=== PATIENT | male | born 1945 | race Caucasian/White ===

== ENCOUNTER 2021-03-12 11:59 | Inpatient (IN) ==
--- NOTE | 2021-03-12 13:25 | Emergency Department Note ---
History of Present Illness General Chief complaint: Neuro Symptoms/Deficit Stated complaint: L SIDED FACIAL WEAKNESS,GARRETT,REF BY Time Seen by Provider: 03/12/21 12:59 Source: patient History of Present Illness Provider complaint: Left facial pain Onset (ago): day(s) 2 Location: face and left Radiation: other (Left scalp) Pain Consistency: + constant Quality: + other (Soreness) Exacerbated By: + other (Combing his hair on the left side) Associated symptoms: + cough; no chest pain, no fever/chills, no headaches, no nausea/vomiting or no shortness of breath This is a 75-year-old male sent in from a local urgent care clinic for evaluation of left facial pain. The patient states that starting 2 days ago he started having some redness and swelling and pain under his left eye. He felt like he was getting a sinus infection and had pain over the sinus which she describes as a soreness. He also developed a cough which is nonproductive. He states that the swelling has extended down his cheek and he has pain in his nose as well. Last night he noticed that he had a facial droop which she just thought was from the swelling. He was able to move his eyebrows. He then started combing his hair this morning and noticed that there was pain over his scalp. He try to get an appointment to see his doctor but they told him to go to the emergency department. He then went to a local urgent care center and was seen and advised to come to the emergency department. He denies any headache, v omiting, fever, chest pain, shortness of breath, abdominal pain, neck pain, diarrhea or urinary symptoms. He is [place] and has not received any immunizations in childhood or the Covid vaccine. He wears dentures and does not have any teeth. Home Medications Medication Instructions Recorded Confirmed Type hydrochlorothiazide 25 mg tablet 25 mg PO DAILY #90 tab 10/28/20 03/12/21 Rx lisinopril 10 mg tablet 10 mg PO DAILY #30 tab 12/04/20 03/12/21 Rx acetaminophen 500 mg tablet 500 mg PO Q6H PRN 03/12/21 03/12/21 History (Tylenol Extra Strength) Allergies Allergy/AdvReac Type Severity Reaction Status Date / Time No Known Allergies Allergy Unverified 03/12/21 13:46 Past Med/Surg History Medical History Acute sinusitis Screen for colon cancer Surgical History History of bladder surgery History of total left hip replacement [facility], 04-22-20, Dr Ochoa Family History Denies family history of Ovarian cancer Prostate cancer Myocardial infarction Breast cancer Colorectal cancer Social History Smoking Status: Never smoker Tobacco Type: Cigarettes Age Started Using Tobacco: 19; Age Quit Using Tobacco: 20; packs per day: 0; Years Smoked: 1; Second Hand Exposure: No; Hx Alcohol Use: No Hx Substance Use: No Visual Impairment: No Limitations Hearing Ability: Normal marital status: Current Living Situation: Spouse Current Living Situation Comment: Lives with spouse current occupational status: retired Feels Safe at Home: Yes caffeine: No Dental Care, Regularly: No Physical Activity Frequency: Does not Exercise Seatbelt Use: always Sunscreen Use: No Review of Systems See HPI for pertinent positives & negatives. and A total of 10 systems reviewed and were otherwise negative Physical Exam Vital Signs Vital Signs - 24 hr 03/12/21 12:02 03/12/21 14:00 03/12/21 16:00 Temperature 36.5 C Temperature Source Oral Pulse Rate 128 H Pulse Rate [Right Radial] 74 79 Pulse Rate from SpO2 Sensor Pulse Rhythm [Right Radial] Regular Regular Pulse Strength [Right Radial] Normal Normal Respiratory Rate 18 16 17 Respiratory Effort / Characteristics Non-Labored Spontaneous Non-Labored Spontaneous Non-Labored Spontaneous Respiratory Depth Normal Normal Normal Respiratory Pattern Regular Regular Blood Pressure 145/93 H Blood Pressure [Left Arm] 141/86 H 187/89 H Blood Pressure Mean 110 Blood Pressure Mean [Left Arm] 104 121 Blood Pressure Position [Left Arm] Lying Sitting Pulse Oximetry 97 95 95 Oxygen Delivery Method Room Air Room Air Room Air Sepsis Recent Fever Within 48 Hours No Sepsis New/Unexplained Change in Mental Status No Sepsis Action Taken by Nursing No Action Required 03/12/21 17:01 03/12/21 17:30 03/12/21 18:00 Temperature Temperature Source Pulse Rate 69 73 66 Pulse Rate [Right Radial] Pulse Rate from SpO2 Sensor 71 73 66 Pulse Rhythm [Right Radial] Pulse Strength [Right Radial] Respiratory Rate 24 23 20 Respiratory Effort / Characteristics Respiratory Depth Respiratory Pattern Blood Pressure 139/79 164/72 H 159/86 H Blood Pressure [Left Arm] Blood Pressure Mean 99 102 110 Blood Pressure Mean [Left Arm] Blood Pressure Position [Left Arm] Pulse Oximetry 95 93 92 Oxygen Delivery Method Sepsis Recent Fever Within 48 Hours Sepsis New/Unexplained Change in Mental Status Sepsis Action Taken by Nursing Constitutional: Vital signs reviewed. Eyes: Pupils are equal round reactive to light. Conjunctiva are noninjected. Pain in the left thigh with extraocular muscle movement. ENT: Pharynx is clear without erythema or exudate. Mucous membranes are moist. Swelling and erythema under the left eye extending to the left lower cheek. Tenderness over the left lateral nose with erythema. Tenderness over the left scalp without significant erythema. Edentulous. No elevation of the tongue or swelling in the submandibular region. Neck supple without meningeal signs. Respiratory: Clear to auscultation bilaterally. Breath sounds are equal bilaterally. Cardiovascular: Regular rate and rhythm. No rubs or gallops. GI: Soft, nondistended and nontender. Bowel sounds are present. Musculoskeletal: No peripheral edema. No lower extremity tenderness. Integumentary: No cyanosis. or jaundice. Neurologic: The patient is awake and alert. Cranial nerves II-XII are intact. There is a facial droop on the left side which may be secondary to swelling. Orbicularis dell strength is intact when blowing out his cheeks against pressure . Motor is 5 out of 5 all extremities. Sensation is intact to light touch all extremities. Normal speech. No pronator drift. No limb ataxia. Psychiatric: Normal affect. Not anxious appearing. Course Administered Medications Acyclovir (Acyclovir 400 Mg Tab) 800 mg PO [id number] [facility] Stop: 03/19/21 18:59 Last Admin: 03/12/21 18:35 Dose: 800 mg Documented by: [id number] Discontinued Medications Vancomycin HCl 2,000 mg/ (Sodium Chloride) 540 mls @ 200 mls/hr IV NOW ONE Stop: 03/12/21 19:29 Last Admin: 03/12/21 17:36 Dose: 200 mls/hr Documented by: [id number] Ceftriaxone Sodium (Rocephin) 2,000 mg in 70 mls @ 140 mls/hr IV NOW STA Stop: 03/12/21 17:17 Last Infusion: 03/12/21 17:36 Dose: 0 mls/hr Documented by: [id number] Admin: 03/12/21 16:55 Dose: 140 mls/hr Documented by: [id number] Ioversol (Optiray 320 125ml) 120 ml IV ONCE ONE Stop: 03/12/21 15:00 Last Admin: 03/12/21 14:59 Dose: 120 ml Documented by: [id number] Morphine Sulfate (Morphine Sulfate 4 Mg/Ml 1 Ml Carp\Vial) 4 mg IV NOW STA Stop: 03/12/21 16:43 Last Admin: 03/12/21 16:49 Dose: 4 mg Documented by: [id number] Ondansetron HCl (Ondansetron Inj 2 Mg/Ml 2 Ml Vial) 4 mg IV NOW STA Stop: 03/12/21 16:43 Last Admin: 03/12/21 16:49 Dose: 4 mg Documented by: [id number] Medical Decision Making Differential Diagnosis Facial cellulitis, facial abscess, post septal cellulitis, MRSA, CVA Medical Records Attestation: I reviewed the patient's medical records. I did perform a limited focused review of portions of the patient's old chart on the electronic medical record. The patient has had no recent pertinent visits to this hospital. Home Medications Current Medication List: was personally reviewed by me Laboratory Data Attestation: I reviewed the patient's lab results. Result diagrams: 03/12/21 14:00 03/12/21 14:00 Lab Results 03/12/21 03/12/21 03/12/21 Range/Units 14:00 14:00 14:00 WBC 5.40 (4.8-10.8) K/uL RBC 5.26 (4.7-6.1) M/uL Hgb 16.3 (14.0-18.0) g/dL Hct 46.7 (42-52) % MCV 88.8 (80-100) fL MCH 31.0 (25-34) pg MCHC 34.9 (32-36) g/dL RDW Std Deviation 44.4 (36.4-46.3) fL RDW Coeff of Rakel 13.7 (11.5-14.5) % Plt Count 162 (130-400) K/uL MPV 9.8 (7.4-10.4) fL Immature Gran % (Auto) 0.6 % Neut % (Auto) 67.6 % Lymph % (Auto) 17.0 % [place] % (Auto) 13.1 % Eos % (Auto) 1.5 % Baso % (Auto) 0.2 % Neut # (Auto) 3.65 (1.4-6.5) K/uL Lymph # (Auto) 0.92 L (1.2-3.4) K/uL [place] # (Auto) 0.71 H (0.11-0.59) K/uL Eos # (Auto) 0.08 (0-0.5) K/uL Baso # (Auto) 0.01 (0-0.2) K/uL Immature Gran # (Auto) 0.03 H (0.00-0.02) K/uL Sodium 138 (136-145) mmol/L Potassium 3.8 (3.5-5.1) mmol/L Chloride 104 (98-107) mmol/L Carbon Dioxide 29 (21-32) mmol/L Anion Gap 5.0 (3-11) BUN 18 (7-18) mg/dl Creatinine 0.87 (0.6-1.4) mg/dl Est Cr Clr Drug Dosing 79.4 ml/min Est GFR ( Amer) 97.2 ml/min Est GFR (Non-Af Amer) 83.8 ml/min BUN/Creatinine Ratio 20.8 H (10-20) Glucose 121 H (70-99) mg/dl Calcium 8.9 (8.5-10.1) mg/dl Total Bilirubin 0.7 (0.2-1) mg/dl AST 33 (15-37) U/L ALT 41 (12-78) U/L Alkaline Phosphatase 58 (45-117) U/L Total Protein 7.6 (6.4-8.2) gm/dl Albumin 3.9 (3.4-5.0) gm/dl Globulin 3.7 (2.5-4.0) gm/dl Albumin/Globulin Ratio 1.1 (0.9-2) Nasal Screen MRSA (PCR) Negative (Negative) COVID-19 Eval Order SARS-CoV-2 (PCR) (Negative) 03/12/21 03/12/21 Range/Units 17:20 17:20 WBC (4.8-10.8) K/uL RBC (4.7-6.1) M/uL Hgb (14.0-18.0) g/dL Hct (42-52) % MCV (80-100) fL MCH (25-34) pg MCHC (32-36) g/dL RDW Std Deviation (36.4-46.3) fL RDW Coeff of Rakel (11.5-14.5) % Plt Count (130-400) K/uL MPV (7.4-10.4) fL Immature Gran % (Auto) % Neut % (Auto) % Lymph % (Auto) % [place] % (Auto) % Eos % (Auto) % Baso % (Auto) % Neut # (Auto) (1.4-6.5) K/uL Lymph # (Auto) (1.2-3.4) K/uL [place] # (Auto) (0.11-0.59) K/uL Eos # (Auto) (0-0.5) K/uL Baso # (Auto) (0-0.2) K/uL Immature Gran # (Auto) (0.00-0.02) K/uL Sodium (136-145) mmol/L Potassium (3.5-5.1) mmol/L Chloride (98-107) mmol/L Carbon Dioxide (21-32) mmol/L Anion Gap (3-11) BUN (7-18) mg/dl Creatinine (0.6-1.4) mg/dl Est Cr Clr Drug Dosing ml/min Est GFR ( Amer) ml/min Est GFR (Non-Af Amer) ml/min BUN/Creatinine Ratio (10-20) Glucose (70-99) mg/dl Calcium (8.5-10.1) mg/dl Total Bilirubin (0.2-1) mg/dl AST (15-37) U/L ALT (12-78) U/L Alkaline Phosphatase (45-117) U/L Total Protein (6.4-8.2) gm/dl Albumin (3.4-5.0) gm/dl Globulin (2.5-4.0) gm/dl Albumin/Globulin Ratio (0.9-2) Nasal Screen MRSA (PCR) (Negative) COVID-19 Eval Order Covid19 at [facility] SARS-CoV-2 (PCR) NEGATIVE (Negative) Imaging Data Radiologist's Impression: Chest X-Ray 03/12/21 13:14 SINGLE VIEW CHEST CLINICAL HISTORY: Cough. FINDINGS: An AP, portable, upright chest radiograph is compared to study dated 03/14/2011. The heart is enlarged noting atherosclerotic calcification of the t horacic aorta. The pulmonary vasculature is noncongested. Chronic interstitial thickening is similar to previous. There is bibasilar scarring/atelectasis. No airspace consolidation or large pleural effusion is identified. No pneumothorax is seen. The skeletal structures are osteopenic. There are healed right-sided rib fractures. Degenerative change is noted throughout the thoracic spine. IMPRESSION: Cardiomegaly with no active disease in the chest. ACT 112: Negative or not required by law. Electronically signed by: Aime Garzon M.D. 03/12/2021 1:[address] 03/12/21 13:14 CT facial bones w con HISTORY: 75 years-old Male facial droop and pain eval for abscess acute facial pain COMPARISON: CTA head neck of same day TECHNIQUE: Multiple axial CT images of the maxillofacial bones were obtained following the intravenous administration of 118 mL Optiray 320. A dose lowering technique was used consistent with the principals of ALARA. FINDINGS: There is asymmetrically increased enhancement of the left preseptal tissues with mild to moderate subcutaneous edema within the left periorbital tissues. No fluid collection. The globes and retrobulbar tissues appear normal. The imaged intracranial structures demonstrate no acute abnormality. Age-related involutional changes. There is a suggested chronic infarct of the right frontal lobe ramirez radiata and lentiform nucleus. Suggested chronic microvascular ischemic disease. 9 mm left 70 to lymph node on image 3 series 11 is likely reactive. Atherosclerotic plaque of the cerebral vasculature. Degenerative changes of the cervical spine. No acute fracture or bony erosion. The mastoid air cells and middle ear cavities are clear. Minimal polypoid mucosal thickening of the maxillary sinuses with mild mucosal thickening of the ethmoid air cells and right sphenoid sinus. No bony erosions. Moderate sized left maylin bullosa. IMPRESSION: 1. Increased enhancement of the left preseptal periorbital tissues with mild to moderate subcutaneous edema is suggestive of of periorbital cellulitis. No abscess or post septal inflammation. 2. No acute facial bone fracture. ACT 112: Negative or not required by law. The above report was generated using voice recognition software. It may contain grammatical, syntax or spelling errors. Electronically signed by: Perez Pham M.D. 03/12/2021 3:24 PM Head CTA 03/12/21 13:14 HEAD & NECK CTA HISTORY: facial droop and pain TECHNIQUE: Multiaxial CT images of the head were performed both before and after the intravenous administration of contrast to evaluate the major cerebral vessels. Multiaxial CT images of the neck were also performed following the intravenous administration of contrast to evaluate the major cervical vessels. Maximum intensity projection images were also obtained. A dose lowering technique was utilized adhering to the principles of ALARA. COMPARISON: None. FINDINGS: There is no mass, hematoma, midline shift, or acute infarct. There is mild multi focal narrowing within the distal vertebral arteries. The basilar artery is patent. The major dural venous sinuses appear patent. Left periorbital soft tissue swelling. Mild atrophy and microvascular ischemic changes are noted within the brain. There is an old small infarct within the right basal ganglia. Calcified plaque within the bilateral carotid siphons. There is mild narrowing within the left supraclinoid ICA of less than 50%. Bilateral MCAs and ACAs are patent. No aneurysms identified. There is mild left periorbital soft tissue swelling. The globes and retrobulbar fat are intact. The aortic arch and proximal great vessels are widely patent. There is no sign ificant stenosis, occlusion, or dissection identified within the bilateral common carotid, internal carotid, or vertebral arteries. There is a 5 mm nodule within the right lung apex on image 20. Mild submandibular and upper cervical lymphadenopathy. This may be reactive to the suspected left facial cellulitis. Mild calcified plaque within the right carotid bifurcation. IMPRESSION: 1. No acute intracranial abnormality. 2. Old right basal ganglia infarct. 3. A few scattered areas of mild narrowing within the cerebral arteries as ivana cribed above. No high-grade stenosis, occlusion, or aneurysm. 4. Left periorbital and left facial soft tissue swelling. 5. A 5 mm indeterminate pulmonary nodule within the right lung apex. Please refer to the chart below for recommended follow-up. 6. No significant stenosis, occlusion, or dissection identified within the carotid or vertebral arteries. Please refer to below summary of Fleischner criteria recommendations for follow- up of incidental CT nodules (Maryann Jenkins, Guidelines for management of small pulmonary nodules detected on CT scans: A statement from the Fleischner Society, Radiology 237: [phone].) SOLID NODULES Solitary nodule size: <6 mm * Low risk patients: no follow-up needed * high risk patients: optional CT at 12 months Solitary nodule size: 6-8 mm * Low risk patients: follow-up at 6-12 months, then consider further follow-up at 18-24 months * high risk patients: initial follow-up CT at 6-12 months and then at 18-24 months if no change Solitary nodule size: >8 mm * either low or high risk patients - consider follow-up CT at 3 months, and/or CT-PET, and/or biopsy Multiple nodules size: <6 mm * Low risk patients: no routine follow-up * high risk patients: optional CT at 12 months Multiple nodules size: 6-8 mm * Low risk patients: follow-up at 3-6 months, then consider further follow-up at 18-24 months * high risk patients: follow-up at 3-6 months, then at 18-24 months if no change Multiple nodules size: >8 mm * Low risk patients: follow-up at 3-6 months, then consider further follow-up at 18-24 months * high risk patients: follow-up at 3-6 months, then at 18-24 months if no change Note: newly detected indeterminate nodule in persons 35 years of age or older. * Low risk patients: minimal or absent history of smoking and/or other known risk factors * high risk patients: history of smoking or of other known risk factors (e.g. first degree relative with lung cancer, or exposure to asbestos, radon, uranium) * if a nodule up to 8 mm is partly solid or is ground glass further follow-up is required after 24 months to exclude possible slow growing adenocarcinoma (KRISTEL) SUBSOLID NODULES Solitary pure ground-glass nodule * nodule size <6 mm - no CT follow-up required * nodule size >=6 mm - follow-up CT at 6-12 months, then every 2 years until 5 years Solitary part-solid nodule * nodule size <6 mm - no CT follow-up required * nodule size >=6 mm - follow-up CT at 3-6 months. If unchanged, and solid component remains <6 mm, then annual follow-up for 5 years Multiple subsolid nodules * nodule size <6 mm - follow-up CT at 3-6 months, consider further follow-up at 2 and 4 years if stable * nodule size >=6 mm - follow-up CT at 3-6 months, subsequent management based on the most suspicious nodule(s) ACT 112: Positive. There are findings on this exam that require communication between the performing entity and the patient following Patient Test Result Information Act ([place] Act 112) guidelines. Electronically signed by: Ga Wu M.D. 03/12/2021 3:36 PM Neck CTA 03/12/21 13:14 HEAD & NECK CTA HISTORY: facial droop and pain TECHNIQUE: Multiaxial CT images of the head were performed both before and after the intravenous administration of contrast to evaluate the major cerebral vessels. Multiaxial CT images of the neck were also performed following the intravenous administration of contrast to evaluate the major cervical vessels. Maximum intensity projection images were also obtained. A dose lowering technique was utilized adhering to the principles of ALARA. COMPARISON: None. FINDINGS: There is no mass, hematoma, midline shift, or acute infarct. There is mild multifocal narrowing within the distal vertebral arteries. The basilar artery is patent. The major dural venous sinuses appear patent. Left periorbital soft tissue swelling. Mild atrophy and microvascular ischemic changes are noted within the brain. There is an old small infarct within the right basal ganglia. Calcified plaque within the bilateral carotid siphons. There is mild narrowing within the left supraclinoid ICA of less than 50%. Bilateral MCAs and ACAs are patent. No aneurysms identified. There is mild left periorbital soft tissue swe lling. The globes and retrobulbar fat are intact. The aortic arch and proximal great vessels are widely patent. There is no significant stenosis, occlusion, or dissection identified within the bilateral common carotid, internal carotid, or vertebral arteries. There is a 5 mm nodule within the right lung apex on image 20. Mild submandibular and upper cervical lymphadenopathy. This may be reactive to the suspected left facial cellulitis. Mild calcified plaque within the right carotid bifurcation. IMPRESSION: 1. No acute intracranial abnormality. 2. Old right basal ganglia infarct. 3. A few scattered areas of mild narrowing within the cerebral arteries as described above. No high-grade stenosis, occlusion, or aneurysm. 4. Left periorbital and left facial soft tissue swelling. 5. A 5 mm indeterminate pulmonary nodule within the right lung apex. Please refer to the chart below for recommended follow-up. 6. No significant stenosis, occlusion, or dissection identified within the carotid or vertebral arteries. Please refer to below summary of Fleischner criteria recommendations for follow- up of incidental CT nodules (Maryann Jenkins, Guidelines for management of small pulmonary nodules detected on CT scans: A statement from the Fleischner Society, Radiology 237: [phone].) SOLID NODULES Solitary nodule size: <6 mm * Low risk patients: no follow-up needed * high risk patients: optional CT at 12 months Solitary nodule size: 6-8 mm * Low risk patients: follow-up at 6-12 months, then consider further follow-up at 18-24 months * high risk patients: initial follow-up CT at 6-12 months and then at 18-24 months if no change Solitary nodule size: >8 mm * either low or high risk patients - consider follow-up CT at 3 months, and/or CT-PET, and/or biopsy Multiple nodules size: <6 mm * Low risk patients: no routine follow-up * high risk patients: optional CT at 12 months Multiple nodules size: 6-8 mm * Low risk patients: follow-up at 3-6 months, then consider further follow-up at 18-24 months * high risk patients: follow-up at 3-6 months, then at 18-24 months if no change Multiple nodules size: >8 mm * Low risk patients: follow-up at 3-6 months, then consider further follow-up at 18-24 months * high risk patients: follow-up at 3-6 months, then at 18-24 months if no change Note: newly detected indeterminate nodule in persons 35 years of age or older. * Low risk patients: minimal or absent history of smoking and/or other known risk factors * high risk patients: history of smoking or of other known risk factors (e.g. first degree relative with lung cancer, or exposure to asbestos, radon, uranium) * if a nodule up to 8 mm is partly solid or is ground glass further follow-up is required after 24 months to exclude possible slow growing adenocarcinoma (KRISTEL) SUBSOLID NODULES Solitary pure ground-glass nodule * nodule size <6 mm - no CT follow-up required * nodule size >=6 mm - follow-up CT at 6-12 months, then every 2 years until 5 years Solitary part-solid nodule * nodule size <6 mm - no CT follow-up required * nodule size >=6 mm - follow-up CT at 3-6 months. If unchanged, and solid component remains <6 mm, then annual follow-up for 5 years Multiple subsolid nodules * nodule size <6 mm - follow-up CT at 3-6 months, consider further follow-up at 2 and 4 years if stable * nodule size >=6 mm - follow-up CT at 3-6 months, subsequent management based on the most suspicious nodule(s) ACT 112: Positive. There are findings on this exam that require communication between the performing entity and the patient following Patient Test Result Information Act ([place] Act 112) guidelines. Electronically signed by: Ga Wu M.D. 03/12/2021 3:36 PM MDM Narrative I did evaluate the patient as noted above. The patient is presenting with swelling to the left side of his face. He complains of a date facial droop but I suspect this is more likely secondary to edema rather than actual muscle weakness. When he really forces himself he seems to have good muscle strength. I am more concerned about a orbital cellulitis or facial abscess. IV access was established. I did order and personally reviewed the images of the patient's chest x-ray as described above. He has no acute process. I did order blood cultures. I did order nasal MRSA screening which was negative. I did order and review the patient's blood work as noted in the electronic medical record. His white blood cell count is not elevated. He is not anemic. Electrolytes and LFTs are unremarkable. I did order a CT of the head and facial bones as well as CT angiogram of the head and neck. I did review the images myself as well as the radiology report as described above. The patient has no evidence of acute CVA. He does have what appears to be an old right basal ganglia infarct. He garrett s also what appears to be periorbital cellulitis. I did reassess the patient. He is having worsening pain and has pain with extraocular movement. I was concerned about orbital cellulitis that was not demonstrated on CT and so I did recommend IV antibiotics and hospitalization. He was given IV morphine and Zofran for pain and felt much better. I did order IV vancomycin as well as ceftriaxone. He was negative for Covid on screening examination. He will be hospitalized for further care and evaluation. I did discuss the case with the hospitalist and case sealer. Impression & Plan Orbital cellulitis on left, Facial droop Discharge Plan Visit Data Chief Complaint: Neuro Symptoms/Deficit Stated Complaint: L SIDED FACIAL WEAKNESS,GARRETT,REF BY MD ED Provider: Saran Lopez Discharge Problem: Orbital cellulitis on left, Facial droop Patient Disposition: Being Evaluated by Hospitalist Forms Stand Alone Forms: My [facility] Prescriptions Prescriptions: No Action hydrochlorothiazide 25 mg tablet 25 mg PO DAILY Qty: 90 RF: 3 lisinopril 10 mg tablet 10 mg PO DAILY Qty: 30 RF: 5 acetaminophen [Tylenol Extra Strength] 500 mg Tablet 500 mg PO Q6H PRN (Reason: Pain) RF: 0 Referrals Referrals: Kenyon Nation DO [Primary Care Provider] -
--- NOTE | 2021-03-12 13:45 | XRay Report ---
SINGLE VIEW CHEST CLINICAL HISTORY: Cough. FINDINGS: An AP, portable, upright chest radiograph is compared to study dated 03/14/2011. The heart i s enlarged noting atherosclerotic calcification of the thoracic aorta. The pulmonary vasculature is n oncongested. Chronic interstitial thickening is similar to previous. There is bibasilar scarring/atel ectasis. No airspace consolidation or large pleural effusion is identified. No pneumothorax is seen. The skeletal structures are osteopenic. There are healed right-sided rib fractures. Degenerative patiño ge is noted throughout the thoracic spine. IMPRESSION: Cardiomegaly with no active disease in the chest. ACT 112: Negative or not required by law. Electronically signed by: Aime Garzon M.D. 03/12/2021 1:44 PM
[2021-03-12 14:14] LABS: Basophils # (auto) 0.01 K/uL (0-0.2); Basophils % (auto) 0.2 %; Eosinophils # (auto) 0.08 K/uL (0-0.5); Eosinophils % (auto) 1.5 %; Hematocrit (blood only) 46.7 % (42-52); Hemoglobin 16.3 g/dL (14.0-18.0); Immature Granulocytes # (auto) 0.03 K/uL (0.00-0.02); Immature Granulocytes % (auto) 0.6 %; Lymphocytes # (auto) 0.92 K/uL (1.2-3.4); Mean Corpuscular Hgb Conc 34.9 g/dL (32-36); Mean Corpuscular Volume 88.8 fL (80-100); Mean Platelet Volume 9.8 fL (7.4-10.4); Monocytes # (auto) 0.71 K/uL (0.11-0.59); Monocytes % (auto) 13.1 %; Neutrophils # (auto) 3.65 K/uL (1.4-6.5); Neutrophils % (auto) 67.6 %; Platelet Count 162 K/uL (130-400); RDW Coefficient of Variation 13.7 % (11.5-14.5); RDW Standard Deviation 44.4 fL (36.4-46.3); Red Blood Count 5.26 M/uL (4.7-6.1)
[2021-03-12 14:32] LABS: Albumin Level 3.9 gm/dl (3.4-5.0); BUN Creatinine Ratio 20.8 (10-20); Calcium 8.9 mg/dl (8.5-10.1); Creatinine Clr Calc Pharmacy 79.4 ml/min; Est GFR (African American) 97.2 ml/min; Est GFR (Non-African American) 83.8 ml/min; Potassium 3.8 mmol/L (3.5-5.1)
[2021-03-12 14:35] LABS: Albumin Globulin Ratio 1.1 (0.9-2); Bilirubin,Total 0.7 mg/dl (0.2-1); Globulin 3.7 gm/dl (2.5-4.0); Total Protein 7.6 gm/dl (6.4-8.2)
[2021-03-12] MEDS ORDERED: OPTIRAY 320 125ml IV ONE (14:59)
--- NOTE | 2021-03-12 15:26 | CT Scan Report ---
CT facial bones w con HISTORY: 75 years-old Male facial droop and pain eval for abscess acute facial pain COMPARISON: CTA head neck of same day TECHNIQUE: Multiple axial CT images of the maxillofacial bones were obtained following the intravenou s administration of 118 mL Optiray 320. A dose lowering technique was used consistent with the princi pals of CRISTOPHER. FINDINGS: There is asymmetrically increased enhancement of the left preseptal tissues with mild to moderate sub cutaneous edema within the left periorbital tissues. No fluid collection. The globes and retrobulbar tissues appear normal. The imaged intracranial structures demonstrate no acute abnormality. Age-relat ed involutional changes. There is a suggested chronic infarct of the right frontal lobe ramirez radiat a and lentiform nucleus. Suggested chronic microvascular ischemic disease. 9 mm left 70 to lymph node on image 3 series 11 is likely reactive. Atherosclerotic plaque of the cerebral vasculature. Degenerative changes of the cervical spine. No acute fracture or bony erosion. The mastoid air cells and middle ear cavities are clear. Minimal polypoid mucosal thickening of the maxillary sinuses with mild mucosal thickening of the ethmoid air cells and right sphenoid sinus. No bony erosions. Moderate sized left maylin bullosa. IMPRESSION: 1. Increased enhancement of the left preseptal periorbital tissues with mild to moderate subcutaneous edema is suggestive of of periorbital cellulitis. No abscess or post septal inflammation. 2. No acute facial bone fracture. ACT 112: Negative or not required by law. The above report was generated using voice recognition software. It may contain grammatical, syntax o r spelling errors. Electronically signed by: Perez Pham M.D. 03/12/2021 3:24 PM
--- NOTE | 2021-03-12 15:37 | CT Scan Report ---
HEAD & NECK CTA HISTORY: facial droop and pain TECHNIQUE: Multiaxial CT images of the head were performed both before and after the intravenous admi nistration of contrast to evaluate the major cerebral vessels. Multiaxial CT images of the neck were also performed following the intravenous administration of contrast to evaluate the major cervical ve ssels. Maximum intensity projection images were also obtained. A dose lowering technique was utilized adhering to the principles of ALARA. COMPARISON: None. FINDINGS: There is no mass, hematoma, midline shift, or acute infarct. There is mild multifocal narrowing withi n the distal vertebral arteries. The basilar artery is patent. The major dural venous sinuses appear patent. Left periorbital soft tissue swelling. Mild atrophy and microvascular ischemic changes are no aixa within the brain. There is an old small infarct within the right basal ganglia. Calcified plaque within the bilateral carotid siphons. There is mild narrowing within the left supraclinoid ICA of les s than 50%. Bilateral MCAs and ACAs are patent. No aneurysms identified. There is mild left periorbit al soft tissue swelling. The globes and retrobulbar fat are intact. The aortic arch and proximal great vessels are widely patent. There is no significant stenosis, occ lusion, or dissection identified within the bilateral common carotid, internal carotid, or vertebral arteries. There is a 5 mm nodule within the right lung apex on image 20. Mild submandibular and upper cervical lymphadenopathy. This may be reactive to the suspected left facial cellulitis. Mild calcifi ed plaque within the right carotid bifurcation. IMPRESSION: 1. No acute intracranial abnormality. 2. Old right basal ganglia infarct. 3. A few scattered areas of mild narrowing within the cerebral arteries as described above. No high-g rade stenosis, occlusion, or aneurysm. 4. Left periorbital and left facial soft tissue swelling. 5. A 5 mm indeterminate pulmonary nodule within the right lung apex. Please refer to the chart below for recommended follow-up. 6. No significant stenosis, occlusion, or dissection identified within the carotid or vertebral arter ies. Please refer to below summary of Fleischner criteria recommendations for follow-up of incidental CT n odules (Maryann Jenkins, Guidelines for management of small pulmonary nodules detected on CT scans: A sta tement from the Fleischner Society, Radiology 237: [id number].) SOLID NODULES Solitary nodule size: <6 mm * Low risk patients: no follow-up needed * high risk patients: optional CT at 12 months Solitary nodule size: 6-8 mm * Low risk patients: follow-up at 6-12 months, then consider further follow-up at 18-24 months * high risk patients: initial follow-up CT at 6-12 months and then at 18-24 months if no change Solitary nodule size: >8 mm * either low or high risk patients - consider follow-up CT at 3 months, and/or CT-PET, and/or biopsy Multiple nodules size: <6 mm * Low risk patients: no routine follow-up * high risk patients: optional CT at 12 months Multiple nodules size: 6-8 mm * Low risk patients: follow-up at 3-6 months, then consider further follow-up at 18-24 months * high risk patients: follow-up at 3-6 months, then at 18-24 months if no change Multiple nodules size: >8 mm * Low risk patients: follow-up at 3-6 months, then consider further follow-up at 18-24 months * high risk patients: follow-up at 3-6 months, then at 18-24 months if no change Note: newly detected indeterminate nodule in persons 35 years of age or older. * Low risk patients: minimal or absent history of smoking and/or other known risk factors * high risk patients: history of smoking or of other known risk factors (e.g. first degree relative with lung cancer, or exposure to asbestos, radon, uranium) * if a nodule up to 8 mm is partly solid or is ground glass further follow-up is required after 24 m onths to exclude possible slow growing adenocarcinoma (KRISTEL) SUBSOLID NODULES Solitary pure ground-glass nodule * nodule size <6 mm - no CT follow-up required * nodule size >=6 mm - follow-up CT at 6-12 months, then every 2 years until 5 years Solitary part-solid nodule * nodule size <6 mm - no CT follow-up required * nodule size >=6 mm - follow-up CT at 3-6 months. If unchanged, and solid component remains <6 mm, then annual follow-up for 5 years Multiple subsolid nodules * nodule size <6 mm - follow-up CT at 3-6 months, consider further follow-up at 2 and 4 years if sta ble * nodule size >=6 mm - follow-up CT at 3-6 months, subsequent management based on the most suspiciou s nodule(s) ACT 112: Positive. There are findings on this exam that require communication between the performing entity and the patient following Patient Test Result Information Act ([place] Act 112) guidelines. Electronically signed by: Ga Wu M.D. 03/12/2021 3:36 PM
[2021-03-12] MEDS ORDERED: ONDANSETRON INJ 2 MG/ML 2 ML VIAL IV STA (16:42)
[2021-03-12] MEDS ORDERED: MoRPHine SULFATE 4 MG/ML 1 ML CARP\\VIAL IV STA (16:42)
[2021-03-12] MEDS ORDERED: VANCOMYCIN CONSULT ACTIVE PRN ×2 (16:48→20:46)
[2021-03-12] MEDS ORDERED: VANCOMYCIN HCL 2,000 MG in SODIUM CHLORIDE 0.9% 500 ML IV ONE (16:48)
[2021-03-12] MEDS ORDERED: cefTRIAXone SODIUM 2,000 MG/70 ML BAG IV STA (16:48)
--- NOTE | 2021-03-12 17:46 | History & Physical Report ---
Date of Service March 12, 2021 Assessment & Plan (1) Orbital cellulitis on left: Plan: 75-year-old male with history of hypertension presenting with preseptal cellulitis. CT of the head with no comment on involvement of orbital structures, no visual deficits or pain with eye movement. Patient is afebrile, hemodynamically stable and nontoxic in appearance. He does have a left facial palsy concerning for Brown's as well as significant discomfort. Differential to include bacterial cellulitis/skin pathogenswith point of entry being small skin cut that the patient received with shaving. Mild concern for possible shingles given small lesion on left side of nose. Vancomycin and ceftriaxone Acyclovir Monitor response Morphine as needed for pain -Tylenol as needed for fever (2) HTN (hypertension): Plan: Blood pressure elevated at 160/85 Continue hydrochlorothiazide Continue lisinopril Continue to monitor (3) Lung nodule: Plan: Patient, 5 mm indeterminate pulmonary nodule in the right apex. He has remote history of smoking Optional follow-up CT at 12 months Plan: F/E/NHep-Lock, electrolytes within normal limits, heart healthy diet as tolerated ProphylaxisSCDs Codefull Dispositionadmit to medical History of Present Illness Chief Complaint: left facial cellulitis Primary Care Provider: DO Ghanshyam Wooten Dhaval is a 75-year-old [place] male with history of hypertension presenting with left periorbital cellulitis. Patient states that he cut himself shaving on the corner of his mouth on the left several days ago. 2 days ago he noted some soreness of his cheek and yesterday he noted some swelling under his eye. He states he has shooting pain into his buddhism as well as scalp tenderness, pain with combing his hair. This morning he noted a left facial droop and was concern for Brown's palsy so he called the [facility] and was instructed to come to the ER. He did wish to see a provider prior to coming to the ER so he was seen by Dr. Avery and was instructed to come to the ER. Patient denies sinus pain or congestion. He has both upper and lower dentures and states that they fit well and denies any pain in his gums or ill fitting dentures. He denies visual changes, blurry vision or diplopia. He denies pain with eye movement. Otherwise denies fevers/chills/chest pain/palpitations/shortness of breath/cough/abdominal pain/nausea/vomiting/diarrhea/constipation. No additional complaints at this time ER course: Vancomycin, ceftriaxone Allergies Allergy/AdvReac Type Severity Reaction Status Date / Time No Known Allergies Allergy Unverified 03/12/21 13:46 Home Medications Medication Instructions Recorded Confirmed Type hydrochlorothiazide 25 mg tablet 25 mg PO DAILY #90 tab 10/28/20 03/12/21 Rx lisinopril 10 mg tablet 10 mg PO DAILY #30 tab 12/04/20 03/12/21 Rx acetaminophen 500 mg tablet 500 mg PO Q6H PRN 03/12/21 03/12/21 History (Tylenol Extra Strength) Past Med/Surg History Medical History (Updated 03/12/21 @ 22:17 by Sharda Guillaume DO) Acute sinusitis HTN (hypertension) Screen for colon cancer Surgical History History of bladder surgery History of total left hip replacement [facility], 04-22-20, Dr Ochoa Family History Denies family history of Ovarian cancer Prostate cancer Myocardial infarction Breast cancer Colorectal cancer Social History Smoking Status: Never smoker Tobacco Type: Cigarettes Age Started Using Tobacco: 19; Age Quit Using Tobacco: 20; packs per day: 0; Years Smoked: 1; Second Hand Exposure: No; Hx Alcohol Use: No Hx Substance Use: No Visual Impairment: No Limitations Hearing Ability: Normal marital status: Current Living Situation: Spouse Current Living Situation Comment: Lives with spouse current occupational status: retired Feels Safe at Home: Yes caffeine: No Dental Care, Regularly: No Physical Activity Frequency: Does not Exercise Seatbelt Use: always Sunscreen Use: No Review of Systems Review of Systems: All systems reviewed & are unremarkable except as noted in HPI & below Physical Exam Physical Exam: General: patient resting comfortably, NAD, non-toxic in appearance, AA&O x 4 Skin: redness and swelling of left periorbital region as below HEENT: NC/AT, PERRL, EOMI, no pain with eye movement, anicteric sclera, conjunctiva without injection, external ear normal to inspection and nontender, nares patent, moist mucus membranes, dentures in place, no oropharyngeal lesions, neck supple, trachea midline, no LAD, no thyromegaly, no JVD Well demarcated region of redness and warmth left periorbital region, cheek, nose. Small scabbed lesion present on left side of nose. 2 small open lesions left corner of the mouth with yellow crusting. No blisters or open vesicles. Heart: +S1/S2, regular, no 3/6 systolic ejection murmur across precordium, no rubs or gallops Lungs: equal air entry bilaterally, no rales/rhonchi/wheezes Abd: +BS, soft, NT/ND, no masses/organomegaly/ascites Ext: warm, 2+ pulses in UE/LE bilaterally, no clubbing/cyanosis or edema Neuro: nonfocal, patient AA&O x 4, speech intact, moving all extremities on command with equal strength 5/5, left facial palsy with forehead sparing. Remainder of neurological exam unremarkable Results & Data Results & Data ([facility]) Vital Signs (Past 12 Hours) Vital Signs Temp Pulse Pulse Resp BP BP Pulse Ox 03/12/21 17:01 69 24 139/79 95 03/12/21 16:00 79 17 187/89 H 95 03/12/21 14:00 74 16 141/86 H 95 03/12/21 12:02 36.5 C 128 H 18 145/93 H 97 Laboratory Results Laboratory Results WBC 5.40 K/uL (4.8-10.8) 03/12/21 14:00 RBC 5.26 M/uL (4.7-6.1) 03/12/21 14:00 Hgb 16.3 g/dL (14.0-18.0) 03/12/21 14:00 Hct 46.7 % (42-52) 03/12/21 14:00 MCV 88.8 fL (80-100) 03/12/21 14:00 MCH 31.0 pg (25-34) 03/12/21 14:00 MCHC 34.9 g/dL (32-36) 03/12/21 14:00 RDW Std Deviation 44.4 fL (36.4-46.3) 03/12/21 14:00 RDW Coeff of Rakel 13.7 % (11.5-14.5) 03/12/21 14:00 Plt Count 162 K/uL (130-400) 03/12/21 14:00 MPV 9.8 fL (7.4-10.4) 03/12/21 14:00 Immature Gran % (Auto) 0.6 % 03/12/21 14:00 Neut % (Auto) 67.6 % 03/12/21 14:00 Lymph % (Auto) 17.0 % 03/12/21 14:00 [place] % (Auto) 13.1 % 03/12/21 14:00 Eos % (Auto) 1.5 % 03/12/21 14:00 Baso % (Auto) 0.2 % 03/12/21 14:00 Neut # (Auto) 3.65 K/uL (1.4-6.5) 03/12/21 14:00 Lymph # (Auto) 0.92 K/uL (1.2-3.4) L 03/12/21 14:00 [place] # (Auto) 0.71 K/uL (0.11-0.59) H 03/12/21 14:00 Eos # (Auto) 0.08 K/uL (0-0.5) 03/12/21 14:00 Baso # (Auto) 0.01 K/uL (0-0.2) 03/12/21 14:00 Immature Gran # (Auto) 0.03 K/uL (0.00-0.02) H 03/12/21 14:00 Sodium 138 mmol/L (136-145) 03/12/21 14:00 Potassium 3.8 mmol/L (3.5-5.1) 03/12/21 14:00 Chloride 104 mmol/L (98-107) 03/12/21 14:00 Carbon Dioxide 29 mmol/L (21-32) 03/12/21 14:00 Anion Gap 5.0 (3-11) 03/12/21 14:00 BUN 18 mg/dl (7-18) 03/12/21 14:00 Creatinine 0.87 mg/dl (0.6-1.4) 03/12/21 14:00 Est Cr Clr Drug Dosing 79.4 ml/min 03/12/21 14:00 Est GFR ( Amer) 97.2 ml/min 03/12/21 14:00 Est GFR (Non-Af Amer) 83.8 ml/min 03/12/21 14:00 BUN/Creatinine Ratio 20.8 (10-20) H 03/12/21 14:00 Glucose 121 mg/dl (70-99) H 03/12/21 14:00 Calcium 8.9 mg/dl (8.5-10.1) 03/12/21 14:00 Total Bilirubin 0.7 mg/dl (0.2-1) 03/12/21 14:00 AST 33 U/L (15-37) 03/12/21 14:00 ALT 41 U/L (12-78) 03/12/21 14:00 Alkaline Phosphatase 58 U/L (45-117) 03/12/21 14:00 Total Protein 7.6 gm/dl (6.4-8.2) 03/12/21 14:00 Albumin 3.9 gm/dl (3.4-5.0) 03/12/21 14:00 Globulin 3.7 gm/dl (2.5-4.0) 03/12/21 14:00 Albumin/Globulin Ratio 1.1 (0.9-2) 03/12/21 14:00 Nasal Screen MRSA (PCR) Negative (Negative) 03/12/21 14:00 COVID-19 Eval Order Covid19 at [facility] 03/12/21 17:20 SARS-CoV-2 (PCR) NEGATIVE (Negative) 03/12/21 17:20 Impressions Chest X-Ray 03/12/21 13:14 SINGLE VIEW CHEST CLINICAL HISTORY: Cough. FINDINGS: An AP, portable, upright chest radiograph is compared to study dated 03/14/2011. The heart is enlarged noting atherosclerotic calcification of the thoracic aorta. The pulmonary vasculature is noncongested. Chronic interstitial thickening is similar to previous. There is bibasilar scarring/atelectasis. No airspace consolidation or large pleural effusion is identified. No pneumothorax is seen. The skeletal structures are osteopenic. There are healed right-sided rib fractures. Degenerative change is noted throughout the thoracic spine. IMPRESSION: Cardiomegaly with no active disease in the chest. ACT 112: Negative or not required by law. Electronically signed by: Aime Garzon M.D. 03/12/2021 1:[address] 03/12/21 13:14 CT facial bones w con HISTORY: 75 years-old Male facial droop and pain eval for abscess acute facial pain COMPARISON: CTA head neck of same day TECHNIQUE: Multiple axial CT images of the maxillofacial bones were obtained following the intravenous administration of 118 mL Optiray 320. A dose lowering technique was used consistent with the principals of ALARA. FINDINGS: There is asymmetrically increased enhancement of the left preseptal tissues with mild to moderate subcutaneous edema within the left periorbital tissues. No fluid collection. The globes and retrobulbar tissues appear normal. The imaged intracranial structures demonstrate no acute abnormality. Age-related involutional changes. There is a suggested chronic infarct of the right frontal lobe ramirez radiata and lentiform nucleus. Suggested chronic microvascular ischemic disease. 9 mm left 70 to lymph node on image 3 series 11 is likely ian ctive. Atherosclerotic plaque of the cerebral vasculature. Degenerative changes of the cervical spine. No acute fracture or bony erosion. The mastoid air cells and middle ear cavities are clear. Minimal polypoid mucosal thickening of the maxillary sinuses with mild mucosal thickening of the ethmoid air cells and right sphenoid sinus. No bony erosions. Moderate sized left maylin bullosa. IMPRESSION: 1. Increased enhancement of the left preseptal periorbital tissues with mild to moderate subcutaneous edema is suggestive of of periorbital cellulitis. No abscess or post septal inflammation. 2. No acute facial bone fracture. ACT 112: Negative or not required by law. The above report was generated using voice recognition software. It may contain grammatical, syntax or spelling errors. Electronically signed by: Perez Pham M.D. 03/12/2021 3:24 PM Head CTA 03/12/21 13:14 HEAD & NECK CTA HISTORY: facial droop and pain TECHNIQUE: Multiaxial CT images of the head were performed both before and after the intravenous administration of contrast to evaluate the major cerebral vessels. Multiaxial CT images of the neck were also performed following the intravenous administration of contrast to evaluate the major cervical vessels. Maximum intensity projection images were also obtained. A dose lowering technique was utilized adhering to the principles of ALARA. COMPARISON: None. FINDINGS: There is no mass, hematoma, midline shift, or acute infarct. There is mild multifocal narrowing within the distal vertebral arteries. The basilar artery is patent. The major dural venous sinuses appear patent. Left periorbital soft tissue swelling. Mild atrophy and microvascular ischemic changes are noted within the brain. There is an old small infarct within the right basal ganglia. Calcified plaque within the bilateral carotid siphons. There is mild narrowing within the left supraclinoid ICA of less than 50%. Bilateral MCAs and ACAs are patent. No aneurysms identified. There is mild left periorbital soft tissue swelling. The globes and retrobulbar fat are intact. The aortic arch and proximal great vessels are widely patent. There is no significant stenosis, occlusion, or dissection identified within the bilateral common carotid, internal carotid, or vertebral arteries. There is a 5 mm nodule within the right lung apex on image 20. Mild submandibular and upper cervical lymphadenopathy. This may be reactive to the suspected left facial cellulitis. Mild calcified plaque within the right carotid bifurcation. IMPRESSION: 1. No acute intracranial abnormality. 2. Old right basal ganglia infarct. 3. A few scattered areas of mild narrowing within the cerebral arteries as described above. No high-grade stenosis, occlusion, or aneurysm. 4. Left periorbital and left facial soft tissue swelling. 5. A 5 mm indeterminate pulmonary nodule within the right lung apex. Please refer to the chart below for recommended follow-up. 6. No significant stenosis, occlusion, or dissection identified within the carotid or vertebral arteries. Please refer to below summary of Fleischner criteria recommendations for follow- up of incidental CT nodules (Maryann Jenkins, Guidelines for management of small pulmonary nodules detected on CT scans: A statement from the Fleischner Society, Radiology 237: [phone].) SOLID NODULES Solitary nodule size: <6 mm * Low risk patients: no follow-up needed * high risk patients: optional CT at 12 months Solitary nodule size: 6-8 mm * Low risk patients: follow-up at 6-12 months, then consider further follow-up at 18-24 months * high risk patients: initial follow-up CT at 6-12 months and then at 18-24 months if no change Solitary nodule size: >8 mm * either low or high risk patients - consider follow-up CT at 3 months, and/or CT-PET, and/or biopsy Multiple nodules size: <6 mm * Low risk patients: no routine follow-up * high risk patients: optional CT at 12 months Multiple nodules size: 6-8 mm * Low risk patients: follow-up at 3-6 months, then consider further follow-up at 18-24 months * high risk patients: follow-up at 3-6 months, then at 18-24 months if no change Multiple nodules size: >8 mm * Low risk patients: follow-up at 3-6 months, then consider further follow-up at 18-24 months * high risk patients: follow-up at 3-6 months, then at 18-24 months if no change Note: newly detected indeterminate nodule in persons 35 years of age or older. * Low risk patients: minimal or absent history of smoking and/or other known risk factors * high risk patients: history of smoking or of other known risk factors (e.g. first degree relative with lung cancer, or exposure to asbestos, radon, uranium) * if a nodule up to 8 mm is partly solid or is ground glass further follow-up is required after 24 months to exclude possible slow growing adenocarcinoma (KRISTEL) SUBSOLID NODULES Solitary pure ground-glass nodule * nodule size <6 mm - no CT follow-up required * nodule size >=6 mm - follow-up CT at 6-12 months, then every 2 years until 5 years Solitary part-solid nodule * nodule size <6 mm - no CT follow-up required * nodule size >=6 mm - follow-up CT at 3-6 months. If unchanged, and solid component remains <6 mm, then annual follow-up for 5 years Multiple subsolid nodules * nodule size <6 mm - follow-up CT at 3-6 months, consider further follow-up at 2 and 4 years if stable * nodule size >=6 mm - follow-up CT at 3-6 months, subsequent management based on the most suspicious nodule(s) ACT 112: Positive. There are findings on this exam that require communication between the performing entity and the patient following Patient Test Result Information Act ([place] Act 112) guidelines. Electronically signed by: Ga Wu M.D. 03/12/2021 3:36 PM Neck CTA 03/12/21 13:14 HEAD & NECK CTA HISTORY: facial droop and pain TECHNIQUE: Multiaxial CT images of the head were performed both before and after the intravenous administration of contrast to evaluate the major cerebral vessels. Multiaxial CT images of the neck were also performed following the intravenous administration of contrast to evaluate the major cervical vessels. Maximum intensity projection images were also obtained. A dose lowering technique was utilized adhering to the principles of ALARA. COMPARISON: None. FINDINGS: There is no mass, hematoma, midline shift, or acute infarct. There is mild multifocal narrowing within the distal vertebral arteries. The basilar artery is patent. The major dural venous sinuses appear patent. Left periorbital soft tissue swelling. Mild atrophy and microvascular ischemic changes are noted within the brain. There is an old small infarct within the right basal ganglia. Calcified plaque within the bilateral carotid siphons. There is mild narrowing within the left supraclinoid ICA of less than 50%. Bilateral MCAs and ACAs are patent. No aneurysms identified. There is mild left periorbital soft tissue swelling. The globes and retrobulbar fat are intact. The aortic arch and proximal great vessels are widely patent. There is no significant stenosis, occlusion, or dissection identified within the bilateral common carotid, internal carotid, or vertebral arteries. There is a 5 mm nodule within the right lung apex on image 20. Mild submandibular and upper cervical lymphadenopathy. This may be reactive to the suspected left facial cellulitis. Mild calcified plaque within the right carotid bifurcation. IMPRESSION: 1. No acute intracranial abnormality. 2. Old right basal ganglia infarct. 3. A few scattered areas of mild narrowing within the cerebral arteries as described above. No high-grade stenosis, occlusion, or aneurysm. 4. Left periorbital and left facial soft tissue swelling. 5. A 5 mm indeterminate pulmonary nodule within the right lung apex. Please refer to the chart below for recommended follow-up. 6. No significant stenosis, occlusion, or dissection identified within the carotid or vertebral arteries. Please refer to below summary of Fleischner criteria recommendations for follow- up of incidental CT nodules (Maryann Jenkins, Guidelines for management of small pulmonary nodules detected on CT scans: A statement from the Fleischner Society, Radiology 237: [phone].) SOLID NODULES Solitary nodule size: <6 mm * Low risk patients: no follow-up needed * high risk patients: optional CT at 12 months Solitary nodule size: 6-8 mm * Low risk patients: follow-up at 6-12 months, then consider further follow-up at 18-24 months * high risk patients: initial follow-up CT at 6-12 months and then at 18-24 months if no change Solitary nodule size: >8 mm * either low or high risk patients - consider follow-up CT at 3 months, and/or CT-PET, and/or biopsy Multiple nodules size: <6 mm * Low risk patients: no routine follow-up * high risk patients: optional CT at 12 months Multiple nodules size: 6-8 mm * Low risk patients: follow-up at 3-6 months, then consider further follow-up at 18-24 months * high risk patients: follow-up at 3-6 months, then at 18-24 months if no patiño ge Multiple nodules size: >8 mm * Low risk patients: follow-up at 3-6 months, then consider further follow-up at 18-24 months * high risk patients: follow-up at 3-6 months, then at 18-24 months if no change Note: newly detected indeterminate nodule in persons 35 years of age or older. * Low risk patients: minimal or absent history of smoking and/or other known risk factors * high risk patients: history of smoking or of other known risk factors (e.g. first degree relative with lung cancer, or exposure to asbestos, radon, uranium) * if a nodule up to 8 mm is partly solid or is ground glass further follow-up is required after 24 months to exclude possible slow growing adenocarcinoma (KRISTEL) SUBSOLID NODULES Solitary pure ground-glass nodule * nodule size <6 mm - no CT follow-up required * nodule size >=6 mm - follow-up CT at 6-12 months, then every 2 years until 5 years Solitary part-solid nodule * nodule size <6 mm - no CT follow-up required * nodule size >=6 mm - follow-up CT at 3-6 months. If unchanged, and solid component remains <6 mm, then annual follow-up for 5 years Multiple subsolid nodules * nodule size <6 mm - follow-up CT at 3-6 months, consider further follow-up at 2 and 4 years if stable * nodule size >=6 mm - follow-up CT at 3-6 months, subsequent management based on the most suspicious nodule(s) ACT 112: Positive. There are findings on this exam that require communication between the performing entity and the patient following Patient Test Result Information Act ([place] Act 112) guidelines. Electronically signed by: Ga Wu M.D. 03/12/2021 3:36 PM Code Status & VTE Plan VTE Prophylaxis Plan VTE Prophylaxis will be ordered: Yes PG Care Time/CCT Total # of Minutes Spent Total Time Spent with Patient: Total time spent is greater than 50% in coordination of care (as documented) at patient's floor/unit and/or counseling patient: Coding Level of Care Code INT OBSERVATION CARE 50M LVL 2 Diagnoses HTN (hypertension) I10 Orbital cellulitis on left H05.012 Lung nodule R91.1
[2021-03-12] MEDS: ACYCLOVIR 400 MG TAB PO SCH ×2 (18:35→23:13)
[2021-03-12] MEDS ORDERED: ACETAMINOPHEN 500 MG TAB PO PRN (21:00)
--- NOTE | 2021-03-12 21:04 | Pharmacy Report ---
Pharmacy Vanc AUC Short Note - Date of Service March 12, 2021 - Assessment & Plan Assessment 75 year old M receiving vancomycin for treatment of facial cellulitis. Pertinent microbiologic data includes: N/A. Day # 1 of antimicrobial therapy. Plan Vancomycin * AUC/MARINA is the preferred PK/PD target for vancomycin * AUC guided dosing is effective and associated with decreased risk of nephrotoxicity compared to traditional trough targets * Per nomogram, start vancomycin 1000 mg IV [id number] with loading dose of 2000 mg * Trough order based upon clinical state Pharmacy will continue to follow and will adjust dose/frequency as necessary. Thank you.
[2021-03-12] MEDS ORDERED: VANCOMYCIN HCL 2,500 MG in SODIUM CHLORIDE 0.9% 500 ML IV ONE (22:00)
[2021-03-12] MEDS: MoRPHine SULFATE 4 MG/ML 1 ML CARP\\VIAL IV PRN (23:13)
[2021-03-13] MEDS: VANCOMYCIN HCL 1,000 MG in SODIUM CHLORIDE 0.9% 250 ML IV SCH ×3 (02:59→19:54)
[2021-03-13] MEDS: MoRPHine SULFATE 4 MG/ML 1 ML CARP\\VIAL IV PRN ×3 (04:30→16:51)
[2021-03-13] MEDS: ACYCLOVIR 400 MG TAB PO SCH ×5 (06:37→21:48)
[2021-03-13] MEDS: hydroCHLOROthiazide 25 MG TAB PO SCH (08:29)
[2021-03-13] MEDS: lisinopril 10 MG TAB PO SCH (08:30)
[2021-03-13 09:54] LABS: Creatinine Clr Calc Pharmacy 79.9 ml/min; Est GFR (African American) 97.6 ml/min; Est GFR (Non-African American) 84.2 ml/min
--- NOTE | 2021-03-13 16:46 | Magnetic Resonance Report ---
MRI OF THE BRAIN WITHOUT CONTRAST CLINICAL HISTORY: Left facial droop. COMPARISON STUDY: Head CT and CTA of the head March 12, 2021. TECHNIQUE: Utilizing a 1.5 Loulou magnet and dedicated coil, multiplanar, multiecho imaging of the bra in was performed without IV contrast. FINDINGS: There are no foci of restricted diffusion to suggest acute infarct. No acute intracranial h emorrhage, midline shift or mass effect is present. Ventricular system is unremarkable. Basal cistern s are patent. Moderate atrophy is present. White matter T2 hyperintense foci suggest small vessel dis ease. There is an old infarct within the right basal ganglia. No intracranial masses identified on th is unenhanced exam the patient. Several punctate hypointense foci on the gradient echo sequence are n oted. Left facial soft tissue swelling is present. Calvarial signal is normal. IMPRESSION: 1. No acute intracranial findings. 2. Old right basal ganglia infarct. 3. Moderate atrophy and small vessel disease. 4. A few punctate hypointense foci on the gradient echo sequence which suggest hemosiderin deposition or amyloid. 5. Left facial soft tissue swelling. ACT 112: Negative or not required by law. Electronically signed by: Rik Tan M.D. 03/13/2021 4:45 PM
[2021-03-13] MEDS ORDERED: cefTRIAXone SODIUM 2,000 MG in DEXTROSE 5% 50 ML IV SCH (17:00)
[2021-03-13] MEDS ORDERED: VANCOMYCIN TROUGH ONE (17:30)
[2021-03-13] MEDS ORDERED: IBUPROFEN 200 MG TAB PO PRN (17:34)
--- NOTE | 2021-03-13 19:19 | Hospitalist Progress Note ---
Date of Service March 13, 2021 Assessment & Plan (1) Shingles: Plan: Presentation with lesions appears more consistent with shingles than preseptal cellulitis. No WBC on admission and V2 distribution would be odd for preseptal cellulitis but difficult to completely rule out secondary bacterial infection. Continue acyclovir although unfortunately outside 72 hour window (2) Orbital cellulitis on left: Plan: Would continue antibiotics with Vancomycin and ceftriaxone pending full blood culture results. (3) HTN (hypertension): Plan: Blood pressure elevated at 160/85 Continue hydrochlorothiazide Continue lisinopril Continue to monitor (4) Lung nodule: Plan: Patient, 5 mm indeterminate pulmonary nodule in the right apex. He has remote history of smoking Optional follow-up CT at 12 months Plan: F/E/NHep-Lock, electrolytes within normal limits, heart healthy diet as tolerated ProphylaxisSCDs Codef[place] Dispositioncontinue on medical Admission and Anticipated Discharge Date Admission Date: March 12, 2021 Subjective Left sided facial droop continues but swelling also on this side. Erythema in very V2 distribution with multiple lesions. Pt denies any fever or chills. Review of Systems Review of Systems: All systems reviewed & are unremarkable except as noted in HPI & below Physical Exam Constitutional: WD/WN, vitals as above Respiratory: normal respiratory effort, lungs clear to auscultation Cardiovascular: RRR, no murmur, no edema Skin: + crusts (multiple on left side of nose and above lip) and + erythema (V2 distribution does not cross midline) Psychiatric: A+Ox3, euthymic affect Results & Data Results & Data ([facility]) Vital Signs (Past 12 Hours) Vital Signs Temp Pulse Resp BP Pulse Ox 03/13/21 16:58 36.8 C 75 20 121/67 95 03/13/21 07:58 36.8 C 76 20 163/89 H 92 PG Care Time/CCT Total # of Minutes Spent Total Time Spent with Patient: Total time spent is greater than 50% in coordination of care (as documented) at patient's floor/unit and/or counseling patient: Coding Level of Care Code 81383 Subseq Hosp Care Lvl 2 Diagnoses Orbital cellulitis on left H05.012 HTN (hypertension) I10 Lung nodule R91.1 Shingles B02.9
--- NOTE | 2021-03-13 19:19 | Pharmacy Report ---
Pharmacy Abx Dose Short Note - Date of Service March 13, 2021 - Assessment & Plan Assessment 75 year old M receiving vancomycin for treatment of facial cellulitis. Cultures NGTD. Renal function stable. Vancomycin trough drawn this evening slightly late, and was ~ a 9hr level. Day # 2 of antimicrobial therapy. Plan Vancomycin * Trough level of 12.4 mcg/mL is predicted to achieve target AUC/MARINA * Continue dose of 1000 mg IV every 8 hours. * Plan for repeat trough 03/14 as pt at risk for accumulation. Pharmacy will continue to follow and will adjust dose/frequency as necessary. Thank you.
[2021-03-13] MEDS: ACETAMINOPHEN 500 MG TAB PO SCH (21:48)
[2021-03-14] MEDS: MoRPHine SULFATE 4 MG/ML 1 ML CARP\\VIAL IV PRN (02:29)
[2021-03-14] MEDS: VANCOMYCIN HCL 1,000 MG in SODIUM CHLORIDE 0.9% 250 ML IV SCH ×2 (04:07→11:39)
[2021-03-14] MEDS: ACYCLOVIR 400 MG TAB PO SCH ×2 (05:38→11:38)
[2021-03-14 08:14] LABS: Basophils # (auto) 0.03 K/uL (0-0.2); Basophils % (auto) 0.4 %; Eosinophils # (auto) 0.17 K/uL (0-0.5); Eosinophils % (auto) 2.2 %; Hemoglobin 15.1 g/dL (14.0-18.0); Immature Granulocytes # (auto) 0.02 K/uL (0.00-0.02); Immature Granulocytes % (auto) 0.3 %; Lymphocytes # (auto) 2.34 K/uL (1.2-3.4); Lymphocytes % (auto) 30.5 %; Mean Corpuscular Hemoglobin 30.1 pg (25-34); Mean Corpuscular Hgb Conc 33.6 g/dL (32-36); Mean Corpuscular Volume 89.8 fL (80-100); Mean Platelet Volume 9.6 fL (7.4-10.4); Monocytes # (auto) 0.88 K/uL (0.11-0.59); Monocytes % (auto) 11.5 %; Neutrophils # (auto) 4.22 K/uL (1.4-6.5); Neutrophils % (auto) 55.1 %; Platelet Count 156 K/uL (130-400); RDW Standard Deviation 46.2 fL (36.4-46.3); Red Blood Count 5.01 M/uL (4.7-6.1); White Blood Count 7.66 K/uL (4.8-10.8)
[2021-03-14 08:46] LABS: BUN Creatinine Ratio 20.5 (10-20); Calcium 8.6 mg/dl (8.5-10.1); Creatinine Clr Calc Pharmacy 85.9 ml/min; Est GFR (African American) 100.6 ml/min; Est GFR (Non-African American) 86.8 ml/min; Potassium 3.7 mmol/L (3.5-5.1)
[2021-03-14] MEDS: hydroCHLOROthiazide 25 MG TAB PO SCH (08:57)
[2021-03-14] MEDS: lisinopril 10 MG TAB PO SCH (08:58)
[2021-03-14] MEDS: ACETAMINOPHEN 500 MG TAB PO SCH ×2 (08:59→13:33)
[2021-03-14] MEDS ORDERED: ASPIRIN 81 MG ECTAB PO SCH (09:00)
--- NOTE | 2021-03-14 11:56 | Discharge Summary ---
Date of Service March 14, 2021 Admission HPI Per Admitting Provider Ghanshyam Puentes is a 75-year-old [place] male with history of hypertension presenting with left periorbital cellulitis. Patient states that he cut himself shaving on the corner of his mouth on the left several days ago. 2 days ago he noted some soreness of his cheek and yesterday he noted some swelling under his eye. He states he has shooting pain into his pentecostal as well as scalp tenderness, pain with combing his hair. This morning he noted a left facial droop and was concern for Brown's palsy so he called the [facility] and was instructed to come to the ER. He did wish to see a provider rani sanford to coming to the ER so he was seen by Dr. Avery and was instructed to come to the ER. Patient denies sinus pain or congestion. He has both upper and lower dentures and states that they fit well and denies any pain in his gums or ill fitting dentures. He denies visual changes, blurry vision or diplopia. He denies pain with eye movement. Otherwise denies fevers/chills/chest pain/palpitations/sh ortness of breath/cough/abdominal pain/nausea/vomiting/diarrhea/constipation. No additional complaints at this time ER course: Vancomycin, ceftriaxone Principal Diagnosis Shingles Possible preseptal cellulitis Old right basal ganglia infarct Discharge Exam Constitutional WD/WN, vitals as above Respiratory normal respiratory effort, lungs clear to auscultation Cardiovascular RRR, no murmur, no edema Skin + crusts (multiple on left side of nose and above lip) and + erythema (V2 distribution does not cross midline) Neurologic moves all extremities and awake; not confused Cranial Nerves: + abnormal facial strength (mild left facial droop) Psychiatric A+Ox3, euthymic affect Discharge Data Allergies Allergy/AdvReac Type Severity Reaction Status Date / Time No Known Allergies Allergy Unverified 03/12/21 13:46 Consultations 03/12/21 16:48 ED Decision to Admit Stat Ordered Studies 03/12/21 13:14 CT angio head wo/w Stat CT angio neck with con Stat IMPRESSION: 1. No acute intracranial abnormality. 2. Old right basal ganglia infarct. 3. A few scattered areas of mild narrowing within the cerebral arteries as described above. No high-grade stenosis, occlusion, or aneurysm. 4. Left periorbital and left facial soft tissue swelling. 5. A 5 mm indeterminate pulmonary nodule within the right lung apex. Please refer to the chart below for recommended follow-up. 6. No significant stenosis, occlusion, or dissection identified within the carotid or vertebral arteries. CT facial bones w con Stat IMPRESSION: 1. Increased enhancement of the left preseptal periorbital tissues with mild to moderate subcutaneous edema is suggestive of of periorbital cellulitis. No abscess or post septal inflammation. 2. No acute facial bone fracture. 03/13/21 12:12 MR brain wo con Routine IMPRESSION: 1. No acute intracranial findings. 2. Old right basal ganglia infarct. 3. Moderate atrophy and small vessel disease. 4. A few punctate hypointense foci on the gradient echo sequence which suggest hemosiderin deposition or amyloid. 5. Left facial soft tissue swelling. Hospital Course (1) Shingles: (2) Orbital cellulitis on left: (3) HTN (hypertension): (4) Lung nodule: Ghanshyam Puentes is a 75 year old male admitted to [facility] from March 12 - 2020 due to left sided facial swelling and droop. He was diagnosed with shingles treated with acyclovir. Difficult to rule out s econdary bacterial cellulitis although no WBC or fever, however will cover with Augmentin and doxycycline for a total of 7 days of antibiotics. He was incidentally found to have a 5mm lung nodule on CT. Consider follow up CT in 12 months to check for stability. Due to his facial droop he underwent stroke workup which showed no acute stroke but MRI and CT did show an old right basal ganglia stroke. He was started on aspirin for secondary prophylaxis. Total Time Total Time Spent Total Time Spent (In Minutes): 45 Discharge Plan Discharge Items Patient Disposition: Home - Self-Care Reason For Visit: FACIAL CELLULITIS Discharge Diagnosis: Shingles Possible preseptal cellulitis (bacterial skin infection) Old right basal ganglia infarct (prior stroke) Activity: Resume your previous activity Non-emergency contact: Primary Care Provider Call non-emergency contact if: you have any medication questions and your symptoms worsen Follow-up/Referrals: Kenyon Nation DO [Primary Care Provider] - Diet: Heart Healthy Addtl Attending Provider Instructions: You were admitted to [facility] from March 12 - 2020 due to left sided facial swelling and droop. You were diagnosed with shingles. Please continue acyclovir for this. Difficult to rule out secondary bacterial cellulitis therefore would recommend contuing on a total of 7 days of antibiotics as prescribed below. You were incidentally found to have a 5mm lung nodule on CT. Recommend discussing with your primary care provider to follow this up with a repeat CT in approximately 12 months given your remote history fo smoking. Due to your facial droop you underwent stroke workup which showed no acute stroke but MRI and CT did show an old right basal ganglia stroke. Recommend start and aspirin 81mg PO daily for this. Please follow up with your primary care provider in 1-2 weeks after discharge or sooner if your symptoms become more severe. Pending Studies at Discharge: No Stand-Alone Forms: [facility], Smoking Cessation Medications and DC Order Prescriptions: New aspirin 81 mg Tablet,Delayed Release (Dr/Ec) 81 mg PO QAM Qty: 30 RF: 0 amoxicillin-pot clavulanate [Augmentin] 875-125 mg tablet 1 tab PO BID 5 Days Qty: 10 RF: 0 doxycycline hyclate 100 mg tablet 100 mg PO BID 5 Days Qty: 10 RF: 0 acyclovir 800 mg tablet 800 mg PO 5XD 5 Days Qty: 25 RF: 0 Continued hydrochlorothiazide 25 mg tablet 25 mg PO DAILY Qty: 90 RF: 3 lisinopril 10 mg tablet 10 mg PO DAILY Qty: 30 RF: 5 acetaminophen [Tylenol Extra Strength] 500 mg Tablet 500 mg PO Q6H PRN (Reason: Pain) RF: 0 Discharge Orders: Discharge Order (Routine); Ordered 03/14/21 Ordered By: Patrice Arora/Other Patient Handouts: ED Periorbital Cellulitis, ED Shingles (Herpes Zoster) Admission Data Admit Date/Time: 03/12/21 17:45 Attending Provider: Patrice Clemons Admit Provider: Sharda Guillaume Primary Care Provider: Kenyon Nation Other Providers: Sharda Guillaume Other Interventions: Discharge Summary Assessment (RN) Last Done: 03/14/21 11:56 Coding Level of Care Code D/C DAY MANAGEMENT >30 MINS Diagnoses Shingles B02.9 Orbital cellulitis on left H05.012 HTN (hypertension) I10 Lung nodule R91.1
[2021-03-14] MEDS ORDERED: VANCOMYCIN TROUGH ONE (19:30)
== END 2021-03-14 14:28 | disposition home or self-care (01) | DRG 596 ==
LOC: ED 11:59 → SUATTDRO 17:45 → 2W 17:45

== ENCOUNTER 2023-10-07 18:11 | Observation (INO) ==
[2023-10-07 18:42] LABS: iSTAT Creatinine 0.7 mg/dl (0.6-1.3); iSTAT Ionized Calcium 1.12 mmol/l (1.12-1.32); iSTAT Potassium 4.4 mmol/L (3.3-5.0)
[2023-10-07 19:15] LABS: Albumin Globulin Ratio 1.5 (0.9-2); Albumin Level 4.3 gm/dl (3.4-5.0); BUN Creatinine Ratio 23.9 (10-20); Basophils # (auto) 0.05 K/uL (0.00-0.20); Basophils % (auto) 0.6 %; Bilirubin,Total 0.4 mg/dl (0.2-1.0); Calcium 9.1 mg/dl (8.6-10.3); Creatinine Clr Calc Pharmacy 95.8 ml/min; Eosinophils # (auto) 0.35 K/uL (0.00-0.50); Eosinophils % (auto) 4.4 %; Est GFR (African American) 103.4 ml/min; Est GFR (Non-African American) 89.2 ml/min; Globulin 2.9 gm/dl (2.5-4.0); Hematocrit (blood only) 46.2 % (42.0-52.0); Hemoglobin 15.8 g/dl (14.0-18.0); Immature Granulocytes # (auto) 0.05 K/uL (0.01-0.20); Immature Granulocytes % (auto) 0.6 %; Lymphocytes % (auto) 31.6 %; Magnesium 2.1 mg/dl (1.7-2.4); Mean Corpuscular Hemoglobin 30.2 pg (25.0-34.0); Mean Corpuscular Hgb Conc 34.2 g/dL (32.0-36.0); Mean Corpuscular Volume 88.2 fL (80.0-100.0); Mean Platelet Volume 10.3 fL (9.4-12.4); Monocytes # (auto) 0.79 K/uL (0.11-0.59); Neutrophils # (auto) 4.16 K/uL (1.40-6.50); Neutrophils % (auto) 52.8 %; Platelet Count 211 K/uL (130-400); Potassium 4.5 mmol/L (3.5-5.1); RDW Coefficient of Variation 12.8 % (11.5-14.5); RDW Standard Deviation 41.2 fL (36.4-46.3); Red Blood Count 5.24 M/uL (4.70-6.10); Total Protein 7.2 gm/dl (6.0-8.3)
[2023-10-07] MEDS: OPTIRAY 320 125ml IV ONE (19:16)
[2023-10-07 19:22] LABS: Troponin I High Sensitivity 5.2 pg/ml (0-20)
--- NOTE | 2023-10-07 19:31 | CT Scan Report ---
CT OF THE HEAD WITHOUT CONTRAST CLINICAL HISTORY: neuro deficit, acute stroke suspected. Right-sided weakness. COMPARISON STUDY: Head CT and CTA of the head March 12, 2021. MRI of the brain March 13, 2021. TECHNIQUE: Helical axial images of the head were obtained without IV contrast. Automated exposure con trol was utilized for the study. A dose lowering technique was utilized adhering to the principles o f ALARA. FINDINGS: No acute intracranial hemorrhage, midline shift or mass effect is present. Ventricular syst em is stable. Basal cisterns are patent. Old right basal ganglia infarct is unchanged. White matter h ypodensity suggests small vessel disease. There are no findings to suggest acute dural sinus thrombos is or acute territorial infarct. There is mild cerebral and moderate cerebellar atrophy. There are no calvarial fractures. IMPRESSION: No acute intracranial findings. ACT 112: Negative or not required by law. Electronically signed by: Rik Tan M.D. 10/07/2023 7:29 PM
[2023-10-07] MEDS: SODIUM CHLORIDE 0.9% 1,000 ML IV SCH (19:32)
[2023-10-07 19:41] LABS: Partial Thromboplastin Time 27 Seconds (21-31); Prothrombin Time 10.7 Seconds (9.0-12.0)
--- NOTE | 2023-10-07 19:45 | CT Scan Report ---
CT ANGIOGRAPHY OF THE NECK WITH CONTRAST CLINICAL HISTORY: neuro deficit, acute stroke suspected COMPARISON STUDY: CTA of the neck March 12, 2021. Technique: CT angiography of the carotid and vertebral arteries was obtained using Optiray and 3D rec onstruction on an independent workstation. NASCET criteria was utilized. Automated exposure control was utilized for the study. A dose lowering technique was utilized adhering to the principles of ALA RA. Findings: A few small nodules within the visualized lung apices are unchanged and CT of March 12. There is no cervical lymphadenopathy. There is no cervical spine fracture. There is moderate plaq ue of the visualized portions of the aortic arch. The bilateral common carotid, cervical internal car otid and vertebral arteries are patent. There is mild plaque within the carotid bifurcations without stenosis. There is no dissection or aneurysm within the neck. IMPRESSION: No stenosis or dissection within the bilateral common carotid, cervical internal carotid or vertebral arteries. ACT 112: Negative or not required by law. Electronically signed by: Rik Tan M.D. 10/07/2023 7:43 PM
--- NOTE | 2023-10-07 19:50 | XRay Report ---
XR chest 1V portable CLINICAL HISTORY: neuro deficit, acute stroke suspected COMPARISON STUDY: Chest CT March 20, 2022. Chest radiograph November 08, 2022. FINDINGS: There is no pneumothorax or pleural effusion. Moderate cardiomegaly is unchanged. Interstit ial thickening is likely chronic. There is no evidence for pulmonary edema. There is no consolidation to suggest pneumonia. IMPRESSION: 1. No acute cardiopulmonary findings. Stable cardiomegaly. 2. Mild interstitial thickening, likely chronic. ACT 112: Negative or not required by law. Electronically signed by: Rik Tan M.D. 10/07/2023 7:49 PM
--- NOTE | 2023-10-07 19:50 | CT Scan Report ---
CTA ANGIOGRAPHY OF THE HEAD CLINICAL HISTORY: neuro deficit, acute stroke suspected COMPARISON STUDY: CTA of the head March 12, 2021. TECHNIQUE: Helical axial images of the head were obtained following uneventful intravenous administr ation of 117 cc of Optiray. Sagittal and coronal reconstructions were viewed as well as maximal inten sity projections on an independent 3-D workstation. Automated exposure control was utilized for the study. A dose lowering technique was utilized adhering to the principles of ALARA. CT DOSE: 1023.15 mGy.cm FINDINGS: No acute intracranial hemorrhage was identified within the head CT will be reported separat kevin. The ventricular system is unremarkable. Old right basal ganglia infarct is unchanged from earlie r exams. There is extensive plaque within the bilateral cavernous carotids with mild to moderate sten osis. No central vessel occlusion is identified. There is no intracranial aneurysm. There are mild mu ltifocal stenoses within the posterior circulation. No intracranial dissection. IMPRESSION: 1. No central vessel occlusion. No intracranial aneurysm. 2. Mild to moderate multifocal stenoses within the intracranial vessels. ACT 112: Negative or not required by law. Electronically signed by: Rik Tan M.D. 10/07/2023 7:47 PM
--- NOTE | 2023-10-07 21:26 | Emergency Department Note ---
Impression & Plan Stroke-like symptoms ED Provider Note NAME: JOSELUIS RODRIGUEZ AGE: 78 SEX: Male INFORMANT: Patient ED PROVIDER(S): Merrill Moore MD CHIEF COMPLAINT: Strokelike symptoms PLAN: Disposition: Admitted Outpatient prescription management: none Referral: None MEDICAL DECISION MAKING: Patient presented because of symptoms of right-sided numbness and some weakness with difficulty ambulating. He was out of the therapeutic window for thrombolysis. He had significant elevation of blood pressure for EMS but was moderately elevated here. Patient underwent a stroke workup including CT and CT angiography which did not reveal any acute findings. Patient's blood work was unremarkable. He was in sinus rhythm. I did consult with neurology, and reviewed the history and findings. He recommended oral aspirin and admission for stroke workup. a consultation was placed with Dr. Guillaume [facility]. Case discussed and diagnostics were reviewed. The team will evaluate the patient for admission and further management.On reassessment the patient was noted to have resolution of his right upper extremity symptoms but still having symptoms in the right lower extremity. Care/management discussed with: manager appointment Level of care consideration(s): After review of the information above and other included data, I feel the patient requires escalation of care to admission Triage Nursing notes: reviewed and agree them. Vital Signs: reviewed and remarkable for hypertension Additional History obtained from: Family. No slurred speech or confusion noted. Chronic Medical/Social Conditions affecting care: Hypertension Prior/ Outside/ External records reviewed: none Differential Diagnosis: CVA, TIA, Infection, dehydration, metabolic abnormality, hypo/hyperglycemia, electrolyte disturbance, anemia, hypoxia, cardiac sources, intracerebral event, toxicologic, neurologic, as well as other pathologies. Diagnostics, independently interpreted by me: ECG: Twelve-lead ECG reveals a sinus rhythm with third-degree block at 66 bpm. LVH and septal Q waves. No ST elevation. Cardiac Monitoring: Cardiac monitoring ordered by me: The patient was placed on continuous cardiac monitoring and observed. It revealed a normal sinus rhythm at 72 beats per minute without ectopy or evidence of dysrhythmia. Medical decision rules: none Imaging studies: Head CT: A noncontrast CT scan of the head was performed and was negative for tumor, fracture, intracranial hemorrhage, or other acute pathology. I refer you to the EMR for further details. HPI: 78 year old Male arrives for evaluation of strokelike symptoms. Patient states about 9:00 this morning he had 1 hour of right upper extremity and right lower extremity numbness. This was also coupled with weakness and difficulty ambulating. Patient stated he was doing well after that episode but then around 2 PM, 5 hours ago the patient had recurrence of the symptoms. EMS was summoned. The patient was noted to be hypertensive with blood pressures in transport of 220/100. Patient states blood pressure at home was in the 170s. He does have a history of hypertension. Patient also noted a very minor headache in the right eyebrow region. Patient denies any trauma. He is not on blood thinners. Pt denies LOC, fevers, chills, diaphoresis, visual changes, neck pain, chest pain, breathing difficulties, nausea, vomiting, abdominal pain, back pain, other complaints.. PAST MEDICAL HISTORY: See Below, hypertension PAST SURGICAL HISTORY: See Below, SOCIAL HISTORY: See Below, HOME MEDICATIONS: See Below ALLERGIES: See Below VITALS: See Below PHYSICAL EXAMINATION: GENERAL: Awake, alert, well-appearing, in no distress HENT: Normocephalic, atraumatic. Oropharynx unremarkable. EYES: Normal conjunctiva. Sclera non-icteric. PERRLA. EOMI. NECK: Inspection normal. Non-tender. Supple. No nuchal rigidity. FROM. No masses. RESPIRATORY: Clear to auscultation. No wheezes. No rales. Normal respiratory effort. CARDIAC: Normal rate. Normal rhythm. No murmurs. No rubs. Extremities warm and well perfused. Pulses equal. No JVD. GI: Soft, non-distended. No tenderness to palpation. No rebound or guarding. No masses. RECTAL: Deferred. MUSCULOSKELETAL: Atraumatic. Chest examination reveals no tenderness. The back is symmetrical on inspection without obvious abnormality. There is no CVA tenderness to palpation. No joint edema. LOWER EXTREMITIES: Calves are equal size bilaterally and non-tender. No edema. No discoloration. NEURO: Normal sensorium. Subjective numbness in the right upper extremity and right lower extremity. No drift. No other sensory or motor deficits noted. Speech normal. Cranial nerves II through XII intact SKIN: No rash or jaundice noted. 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 Chronic sinusitis Hearing deficit Carpal tunnel syndrome, bilateral Hx of bladder cancer Hypertension Traction bronchiectasis Dyspnea on exertion Mediastinal lymphadenopathy Multiple pulmonary nodules determined by computed tomography of lung Interstitial lung disease Surgical History History of colonoscopy History of tooth extraction History of cystoscopy History of nasal surgery History of total left hip replacement Family History Other No family history of adverse response to anesthesia Denies family history of Ovarian cancer Prostate cancer Myocardial infarction Breast cancer Colorectal cancer Social History Smoking Status: Never smoker Tobacco Type: Cigarettes Age Started Using Tobacco: 19; Age Quit Using Tobacco: 20; packs per day: 0; Second Hand Exposure: No; Do You Dip or Chew Tobacco: No; Hx Alcohol Use: No Hx Substance Use: No Preferred Language: Syriac Communication Ability: Effective Visual Impairment: No Limitations Hearing Ability: Normal 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 Beliefs That Will Affect Care: Christianity Christianity Beliefs: [facility] marital status: Current Living Situation: Spouse Current Living Situation Comment: Lives with spouse current occupational status: retired Feels Safe at Home: Yes Diet: regular caffeine: No Dental Care, Regularly: No Physical Activity Frequency: Does not Exercise Seatbelt Use: always Sunscreen Use: No Assistive Devices: Cane, Denture - Upper, Denture - Lower, Glasses and Hearing Aid - Right Allergies Allergies Allergy/AdvReac Type Severity Reaction Status Date / Time No Known Allergies Allergy Verified 10/07/23 18:39 Home Meds Home Medications Medication Instructions Recorded Confirmed Oxygen Home E0424 04/17/23 07/25/23 Previous Rx's Medication Instructions Recorded aspirin 81 mg tablet,delayed 81 mg PO QAM #30 tabs 03/14/21 release losartan 50 mg tablet 50 mg PO BID #60 tabs 02/06/23 Oxygen Home E0424 #1 ea 07/05/23 metoprolol succinate 25 mg 25 mg PO DAILY #90 tabs 09/18/23 tablet,extended release 24 hr Results & Data (ED) Vital Signs Vital Signs - 24 hr 10/07/23 18:27 10/07/23 18:29 10/07/23 18:29 Temperature 36.6 C Temperature Source Oral Pulse Rate 63 68 Pulse Rate [Apical] Pulse Rate from SpO2 Sensor 63 Respiratory Rate 22 18 Respiratory Effort / Characteristics Non-Labored Spontaneous Respiratory Depth Normal Respiratory Pattern Regular Blood Pressure 167/104 H Blood Pressure [Left Arm] Blood Pressure Mean 125 Blood Pressure Mean [Left Arm] Blood Pressure Position Lying Blood Pressure Position [Left Arm] Pulse Oximetry 92 92 Oxygen Delivery Method Room Air Room Air Sepsis Recent Fever Within 48 Hours No Sepsis New/Unexplained Change in Mental Status N/A Sepsis Action Taken by Nursing No Action Required 10/07/23 18:29 10/07/23 18:29 10/07/23 18:30 Temperature Temperature Source Pulse Rate 64 63 Pulse Rate [Apical] 64 Pulse Rate from SpO2 Sensor 62 Respiratory Rate 18 19 Respiratory Effort / Characteristics Non-Labored Spontaneous Respiratory Depth Normal Respiratory Pattern Regular Blood Pressure Blood Pressure [Left Arm] 176/87 H Blood Pressure Mean Blood Pressure Mean [Left Arm] 116 Blood Pressure Position Blood Pressure Position [Left Arm] Lying Pulse Oximetry 92 92 Oxygen Delivery Method Room Air Sepsis Recent Fever Within 48 Hours Sepsis New/Unexplained Change in Mental Status Sepsis Action Taken by Nursing 10/07/23 18:30 10/07/23 18:40 10/07/23 18:50 Temperature Temperature Source Pulse Rate 64 64 Pulse Rate [Apical] Pulse Rate from SpO2 Sensor 64 65 Respiratory Rate 22 20 Respiratory Effort / Characteristics Respiratory Depth Respiratory Pattern Blood Pressure 176/87 H Blood Pressure [Left Arm] Blood Pressure Mean 123 Blood Pressure Mean [Left Arm] Blood Pressure Position Blood Pressure Position [Left Arm] Pulse Oximetry 92 91 Oxygen Delivery Method Sepsis Recent Fever Within 48 Hours Sepsis New/Unexplained Change in Mental Status Sepsis Action Taken by Nursing 10/07/23 19:00 10/07/23 19:00 10/07/23 19:25 Temperature Temperature Source Pulse Rate 66 70 Pulse Rate [Apical] Pulse Rate from SpO2 Sensor 66 71 Respiratory Rate 16 21 Respiratory Effort / Characteristics Respiratory Depth Respiratory Pattern Blood Pressure 171/90 H Blood Pressure [Left Arm] Blood Pressure Mean 136 Blood Pressure Mean [Left Arm] Blood Pressure Position Blood Pressure Position [Left Arm] Pulse Oximetry 91 90 Oxygen Delivery Method Sepsis Recent Fever Within 48 Hours Sepsis New/Unexplained Change in Mental Status Sepsis Action Taken by Nursing 10/07/23 19:30 10/07/23 19:30 10/07/23 19:40 Temperature Temperature Source Pulse Rate 67 66 Pulse Rate [Apical] Pulse Rate from SpO2 Sensor 67 68 Respiratory Rate 22 19 Respiratory Effort / Characteristics Respiratory Depth Respiratory Pattern Blood Pressure 156/94 H Blood Pressure [Left Arm] Blood Pressure Mean 106 Blood Pressure Mean [Left Arm] Blood Pressure Position Blood Pressure Position [Left Arm] Pulse Oximetry 93 92 Oxygen Delivery Method Sepsis Recent Fever Within 48 Hours Sepsis New/Unexplained Change in Mental Status Sepsis Action Taken by Nursing 10/07/23 19:50 10/07/23 20:00 10/07/23 20:00 Temperature Temperature Source Pulse Rate 64 64 Pulse Rate [Apical] Pulse Rate from SpO2 Sensor 65 65 Respiratory Rate 21 22 Respiratory Effort / Characteristics Respiratory Depth Respiratory Pattern Blood Pressure 190/89 H Blood Pressure [Left Arm] Blood Pressure Mean 135 Blood Pressure Mean [Left Arm] Blood Pressure Position Blood Pressure Position [Left Arm] Pulse Oximetry 92 92 Oxygen Delivery Method Sepsis Recent Fever Within 48 Hours Sepsis New/Unexplained Change in Mental Status Sepsis Action Taken by Nursing 10/07/23 20:10 10/07/23 20:20 Temperature Temperature Source Pulse Rate 71 65 Pulse Rate [Apical] Pulse Rate from SpO2 Sensor 69 65 Respiratory Rate 18 17 Respiratory Effort / Characteristics Respiratory Depth Respiratory Pattern Blood Pressure Blood Pressure [Left Arm] Blood Pressure Mean Blood Pressure Mean [Left Arm] Blood Pressure Position Blood Pressure Position [Left Arm] Pulse Oximetry 91 92 Oxygen Delivery Method Sepsis Recent Fever Within 48 Hours Sepsis New/Unexplained Change in Mental Status Sepsis Action Taken by Nursing Laboratory Data 10/07/23 18:11 10/07/23 18:11 Lab Results 10/07/23 10/07/23 10/07/23 Range/Units 18:11 18:20 18:27 WBC 7.90 (4.8-10.8) K/ul RBC 5.24 (4.70-6.10) M/uL Hgb 15.8 (14.0-18.0) g/dl POC Hgb 16.0 (14.0-18.0) g/dl Hct 46.2 (42.0-52.0) % POC Hct 47 (42-52) % MCV 88.2 (80.0-100.0) fL MCH 30.2 (25.0-34.0) pg MCHC 34.2 (32.0-36.0) g/dL RDW Std Deviation 41.2 (36.4-46.3) fL RDW Coeff of Rakel 12.8 (11.5-14.5) % Plt Count 211 (130-400) K/uL MPV 10.3 (9.4-12.4) fL Immature Gran % (Auto) 0.6 % Neut % (Auto) 52.8 % Lymph % (Auto) 31.6 % [place] % (Auto) 10.0 % Eos % (Auto) 4.4 % Baso % (Auto) 0.6 % Neut # (Auto) 4.16 (1.40-6.50) K/uL Lymph # (Auto) 2.50 (1.20-3.40) K/uL [place] # (Auto) 0.79 H (0.11-0.59) K/uL Eos # (Auto) 0.35 (0.00-0.50) K/uL Baso # (Auto) 0.05 (0.00-0.20) K/uL Immature Gran # (Auto) 0.05 (0.01-0.20) K/uL PT 10.7 (9.0-12.0) Seconds INR 1.0 (0.9-1.1) APTT 27 (21-31) Seconds PTT Ratio 1.0 POC Sodium 143 (135-144) mmol/L Sodium 140 (136-145) mmol/L POC Potassium 4.4 (3.3-5.0) mmol/L Potassium 4.5 (3.5-5.1) mmol/L POC Chloride 106 (101-112) mmol/L Chloride 107 (98-107) mmol/L Carbon Dioxide 27 (21-32) mmol/L POC Total CO2 26 (24-31) mmol/L Anion Gap 6 (3-11) POC Anion Gap 17.0 (16-25) mmol/L POC BUN 17 (7-18) mg/dl BUN 17 (6-23) mg/dl Creatinine 0.71 (0.6-1.4) mg/dl POC Creatinine 0.7 (0.6-1.3) mg/dl Est Cr Clr Drug Dosing 95.8 ml/min Est GFR ( Amer) 103.4 ml/min Est GFR (Non-Af Amer) 89.2 ml/min BUN/Creatinine Ratio 23.9 H (10-20) Glucose 114 H (70-99(Fasting)) mg/dl POC Glucose 106 H (70-99) mg/dl POC Glucose (other) 116 H (70-99) mg/dl Calcium 9.1 (8.6-10.3) mg/dl POC Ioniz Calcium Jabier 1.12 (1.12-1.32) mmol/l Magnesium 2.1 (1.7-2.4) mg/dl Total Bilirubin 0.4 (0.2-1.0) mg/dl AST 23 (13-39) U/L ALT 26 (7-52) U/L Alkaline Phosphatase 51 (34-104) U/L Troponin I High Sens 5.2 (0-20) pg/ml Total Protein 7.2 (6.0-8.3) gm/dl Albumin 4.3 (3.4-5.0) gm/dl Globulin 2.9 (2.5-4.0) gm/dl Albumin/Globulin Ratio 1.5 (0.9-2) Administered Medications Sodium Chloride (Nss) 1,000 mls @ 50 mls/hr IV .Q20H CARO Stop: 11/06/23 18:59 Last Admin: 10/07/23 19:32 Dose: 50 mls/hr Documented By: JD Discontinued Medications Aspirin (Aspirin Chew 324 Mg) 324 mg PO NOW STA Stop: 10/07/23 21:25 Last Admin: 10/07/23 21:31 Dose: 324 mg Documented By: MED Ioversol (Optiray 320 125ml) 117 ml IV ONCE ONE Stop: 10/07/23 19:17 Last Admin: 10/07/23 19:16 Dose: 117 ml Documented By: EDK Imaging Data Radiologist's Impression: Chest X-Ray 10/07/23 18:57 XR chest 1V portable CLINICAL HISTORY: neuro deficit, acute stroke suspected COMPARISON STUDY: Chest CT March 20, 2022. Chest radiograph November 08, 2022. FINDINGS: There is no pneumothorax or pleural effusion. Moderate cardiomegaly is unchanged. Interstitial thickening is likely chronic. There is no evidence for pulmonary edema. There is no consolidation to suggest pneumonia. IMPRESSION: 1. No acute cardiopulmonary findings. Stable cardiomegaly. 2. Mild interstitial thickening, likely chronic. ACT 112: Negative or not required by law. Electronically signed by: Rik Tan M.D. 10/07/2023 7:[address] 10/07/23 18:57 CT OF THE HEAD WITHOUT CONTRAST CLINICAL HISTORY: neuro deficit, acute stroke suspected. Right-sided weakness. COMPARISON STUDY: Head CT and CTA of the head March 12, 2021. MRI of the brain March 13, 2021. TECHNIQUE: Helical axial images of the head were obtained without IV contrast. Automated exposure control was utilized for the study. A dose lowering technique was utilized adhering to the principles of ALARA. FINDINGS: No acute intracranial hemorrhage, midline shift or mass effect is present. Ventricular system is stable. Basal cisterns are patent. Old right basal ganglia infarct is unchanged. White matter hypodensity suggests small vessel disease. There are no findings to suggest acute dural sinus thrombosis or acute territorial infarct. There is mild cerebral and moderate cerebellar atrophy. There are no calvarial fractures. IMPRESSION: No acute intracranial findings. ACT 112: Negative or not required by law. Electronically signed by: Rik Tan M.D. 10/07/2023 7:29 PM Head CTA 10/07/23 18:57 CTA ANGIOGRAPHY OF THE HEAD CLINICAL HISTORY: neuro deficit, acute stroke suspected COMPARISON STUDY: CTA of the head March 12, 2021. TECHNIQUE: Helical axial images of the head were obtained following uneventful intravenous administration of 117 cc of Optiray. Sagittal and coronal reconstructions were viewed as well as maximal intensity projections on an independent 3-D workstation. Automated exposure control was utilized for the study. A dose lowering technique was utilized adhering to the principles of ALARA. CT DOSE: 1023.15 mGy.cm FINDINGS: No acute intracranial hemorrhage was identified within the head CT will be reported separately. The ventricular system is unremarkable. Old right basal ganglia infarct is unchanged from earlier exams. There is extensive plaque within the bilateral cavernous carotids with mild to moderate stenosis. No central vessel occlusion is identified. There is no intracranial aneurysm. There are mild multifocal stenoses within the posterior circulation. No intracranial dissection. IMPRESSION: 1. No central vessel occlusion. No intracranial aneurysm. 2. Mild to moderate multifocal stenoses within the intracranial vessels. ACT 112: Negative or not required by law. Electronically signed by: Rik Tan M.D. 10/07/2023 7:47 PM Neck CTA 10/07/23 18:57 CT ANGIOGRAPHY OF THE NECK WITH CONTRAST CLINICAL HISTORY: neuro deficit, acute stroke suspected COMPARISON STUDY: CTA of the neck March 12, 2021. Technique: CT angiography of the carotid and vertebral arteries was obtained using Optiray and 3D reconstruction on an independent workstation. NASCET criteria was utilized. Automated exposure control was utilized for the study. A dose lowering technique was utilized adhering to the principles of ALARA. Findings: A few small nodules within the visualized lung apices are unchanged and CT of March 12, 2021. There is no cervical lymphadenopathy. There is no cervical spine fracture. There is moderate plaque of the visualized portions of the aortic arch. The bilateral common carotid, cervical internal carotid and vertebral arteries are patent. There is mild plaque within the carotid bifurcations without stenosis. There is no dissection or aneurysm within the neck. IMPRESSION: No stenosis or dissection within the bilateral common carotid, cervical internal carotid or vertebral arteries. ACT 112: Negative or not required by law. Electronically signed by: Rik Tan M.D. 10/07/2023 7:43 PM Discharge Plan Visit Data Chief Complaint: Neuro Symptoms/Deficit Stated Complaint: DIZZINESS, WEAKNESS ED Provider: Merrill Moore Discharge Problem: Stroke-like symptoms Forms Stand Alone Forms: [facility] [employer] Prescriptions Prescriptions: No Action (DME) Oxygen Home E0424 Liters Per Minute See Rx Instructions .Route Qty: 1 0RF Rx Instructions: Medical Oxygen at 2lpm via NC all the time LON99 losartan 50 mg tablet 50 mg PO BID Qty: 60 11RF (DME) Oxygen Home E0424 Liters Per Minute See Rx Instructions .ROUTE .MEDSUPPLY Rx Instructions: Home oxygen concentrator with portability. O2 at 2 L/min via nasal cannula at all times. DAYAN 89 yrs PT reports 04/17/2023 that it is at night only. metoprolol succinate 25 mg tablet extended release 24 hr 25 mg PO DAILY Qty: 90 3RF aspirin 81 mg Tablet,Delayed Release (Dr/Ec) 81 mg PO QAM Qty: 30 0RF Referrals Referrals: Kenyon Nation DO [Primary Care Provider] -
[2023-10-07] MEDS: ASPIRIN CHEW 324 MG PO STA (21:31)
--- NOTE | 2023-10-07 22:23 | History & Physical Report ---
Date of Service October 07, 2023 Assessment & Plan (1) Stroke-like symptoms: Plan: 78yo male with history of HTN presents with two episodes of numbness of the right side. Patient hypertensive on arrival. Lab workup largely unremarkable. CT scans of the head and vasculature with old ischemic disease as well as mild to moderate stenosis of the posterior intracranial vessels. Symptoms continue to improve. Dx to include TIA or CVA -Observation to medical with telemetry -Neuro checks and NIHSS per protocol -Maintain aspiration precautions, fall precautions and seizure precautions -Check HgbA1C and Lipid panel -Check 2D echo with bubble study -Check MRI brain -Continue ASA 81mg po daily -Initiate Plavix 75mg po daily - ABCD2 score=5 -Initiate Atorvastatin 40mg po daily -PT/OT evaluation appreciated (2) HTN (hypertension): Plan: Patient with history of HTN. He reports compliance with his medications but BP remains high at home -Hold Losartan and Metoprolol for now to allow for permisive HTN -Monitor (3) Interstitial lung disease: Plan: Patient with interstitial lung disease likely secondary to occupational exposu re. He follows with Pulmonary for regular pulmonary function testing. Last seen in July. 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 Patient had some symptoms this morning around 0900 - mostly numbness of the RUE and RLE with gait instability as well as a mild headache and some dizziness. The symptoms lasted approximately one hour then resolved. He was feeling back to normal until around 1400 when his symptoms returned - mostly numbness of the right ankle and foot. He denies visual deficit, vertigo, speech deficit. No additional complaints at this time. Patient feels that his symptoms have overall been improving since being in the ER - only now with numbness of his right toes. Patient with longstanding history of HTN. He is compliant with his medications. He reports checking his blood pressure at home during his event and it was elevated at 164/82. Per EMS blood pressure was in the 190s. Patient had similar episode in the past years ago with left sided numbness. He had an MRI which was NEGATIVE for acute CVA and was told that he had a TIA. ER Course: ASA 324mg NSS Allergies Allergy/AdvReac Type Severity Reaction Status Date / Time No Known Allergies Allergy Verified 10/07/23 18:39 Home Medications Medication Instructions Recorded Confirmed Type aspirin 81 mg tablet,delayed 81 mg PO QAM #30 tabs 03/14/21 10/07/23 Rx release losartan 50 mg tablet 50 mg PO BID #60 tabs 02/06/23 10/07/23 Rx Oxygen Home E0424 04/17/23 07/25/23 History Oxygen Home E0424 #1 ea 07/05/23 07/25/23 Rx metoprolol succinate 25 mg 25 mg PO DAILY #90 tabs 09/18/23 10/07/23 Rx tablet,extended release 24 hr Past Med/Surg History Medical History Hypersomnolence 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 History of Incidentally found on imaging in 2020("Old right basal ganglia infract per 2020 brain MRI) - PCP aware- started on ASA and statin Chronic sinusitis Hearing deficit Carpal tunnel syndrome, bilateral Hx of bladder cancer Hypertension Traction bronchiectasis Likely secondary to ILD Dyspnea on exertion Six minute walk test done- patient does not qualify for O2- encouraged weight loss per pulm records Mediastinal lymphadenopathy Multiple pulmonary nodules determined by computed tomography of lung Interstitial lung disease Idiopathic interstitial pneumonia per pulm records Reason for upcoming procedure Surgical History History of colonoscopy History of tooth extraction History of cystoscopy "cancer spot removed" History of nasal surgery History of total left hip replacement Family History Other No family history of adverse response to anesthesia Denies family history of Ovarian cancer Prostate cancer Myocardial infarction Breast cancer Colorectal cancer Social History Smoking Status: Never smoker Tobacco Type: Cigarettes Age Started Using Tobacco: 19; Age Quit Using Tobacco: 20; packs per day: 0; Second Hand Exposure: No; Do You Dip or Chew Tobacco: No; Hx Alcohol Use: No Hx Substance Use: No Preferred Language: Algerian Communication Ability: Effective Visual Impairment: No Limitations Hearing Ability: Normal Stage Builder Required: No Beliefs That Will Affect Care: Yazidism Yazidism Beliefs: [facility] marital status: Current Living Situation: Spouse Current Living Situation Comment: Lives with spouse current occupational status: retired Feels Safe at Home: Yes Diet: regular caffeine: No Dental Care, Regularly: No Physical Activity Frequency: Does not Exercise Seatbelt Use: always Sunscreen Use: No Assistive Devices: Cane, Denture - Upper, Denture - Lower, Glasses and Hearing Aid - Right Review of Systems Review of Systems: All systems reviewed & are unremarkable except as noted in HPI & below Physical Exam Physical Exam: General: patient resting comfortably, NAD, non-toxic in appearance, AA&O x 4 Skin: warm, dry, intact, no rashes or lesions HEENT: NC/AT, PERRL, EOMI, anicteric sclera, conjunctiva without injection, external ear normal to inspection and nontender, nares patent, moist mucus membranes, dentition intact, no oropharyngeal lesions, neck supple, trachea midline, no LAD, no thyromegaly, no JVD Heart: +S1/S2, regular, no m/r/g Lungs: equal air entry bilaterally, no rales/rhonchi/wheezes Abd: +BS, soft, NT/ND, no masses/organomegaly/ascites Ext: warm, 2+ pulses in UE/LE bilaterally, no clubbing/cyanosis or edema Neuro: AA&O x 3, answering questions appropriately, no facial droop, slight deviation of the tongue to the right, CN II - XII grossly intact, sensation to light touch diminished in the right ankle and dorsum of the foot, intact otherwise, MS 5/5 in UE/LE bilaterally, normal finger to nose and [id number] testing, no drift, gait not assessed Results & Data Results & Data Vital Signs (Past 12 Hours) Vital Signs Temp Pulse Pulse Resp BP BP Pulse Ox 10/07/23 20:20 65 17 92 10/07/23 20:10 71 18 91 10/07/23 20:00 190/89 H 10/07/23 20:00 64 22 92 10/07/23 19:50 64 21 92 10/07/23 19:40 66 19 92 10/07/23 19:30 67 22 93 10/07/23 19:30 156/94 H 10/07/23 19:25 70 21 90 10/07/23 19:00 66 16 91 10/07/23 19:00 171/90 H 10/07/23 18:50 64 20 91 10/07/23 18:40 64 22 92 10/07/23 18:30 176/87 H 10/07/23 18:30 63 19 92 10/07/23 18:29 64 10/07/23 18:29 64 18 176/87 H 92 10/07/23 18:29 10/07/23 18:29 36.6 C 68 18 167/104 H 92 10/07/23 18:27 63 22 92 O2 Del Method 10/07/23 20:20 10/07/23 20:10 10/07/23 20:00 10/07/23 20:00 10/07/23 19:50 10/07/23 19:40 10/07/23 19:30 10/07/23 19:30 10/07/23 19:25 10/07/23 19:00 10/07/23 19:00 10/07/23 18:50 10/07/23 18:40 10/07/23 18:30 10/07/23 18:30 10/07/23 18:29 10/07/23 18:29 Room Air 10/07/23 18:29 Room Air 10/07/23 18:29 Room Air 10/07/23 18:27 Laboratory Results Laboratory Results WBC 7.90 K/ul (4.8-10.8) 10/07/23 18:11 RBC 5.24 M/uL (4.70-6.10) 10/07/23 18:11 Hgb 15.8 g/dl (14.0-18.0) 10/07/23 18:11 POC Hgb 16.0 g/dl (14.0-18.0) 10/07/23 18:27 Hct 46.2 % (42.0-52.0) 10/07/23 18:11 POC Hct 47 % (42-52) 10/07/23 18:27 MCV 88.2 fL (80.0-100.0) 10/07/23 18:11 MCH 30.2 pg (25.0-34.0) 10/07/23 18:11 MCHC 34.2 g/dL (32.0-36.0) 10/07/23 18:11 RDW Std Deviation 41.2 fL (36.4-46.3) 10/07/23 18:11 RDW Coeff of Rakel 12.8 % (11.5-14.5) 10/07/23 18:11 Plt Count 211 K/uL (130-400) 10/07/23 18:11 MPV 10.3 fL (9.4-12.4) 10/07/23 18:11 Immature Gran % (Auto) 0.6 % 10/07/23 18:11 Neut % (Auto) 52.8 % 10/07/23 18:11 Lymph % (Auto) 31.6 % 10/07/23 18:11 Lake % (Auto) 10.0 % 10/07/23 18:11 Eos % (Auto) 4.4 % 10/07/23 18:11 Baso % (Auto) 0.6 % 10/07/23 18:11 Neut # (Auto) 4.16 K/uL (1.40-6.50) 10/07/23 18:11 Lymph # (Auto) 2.50 K/uL (1.20-3.40) 10/07/23 18:11 Lake # (Auto) 0.79 K/uL (0.11-0.59) H 10/07/23 18:11 Eos # (Auto) 0.35 K/uL (0.00-0.50) 10/07/23 18:11 Baso # (Auto) 0.05 K/uL (0.00-0.20) 10/07/23 18:11 Immature Gran # (Auto) 0.05 K/uL (0.01-0.20) 10/07/23 18:11 PT 10.7 Seconds (9.0-12.0) 10/07/23 18:11 INR 1.0 (0.9-1.1) 10/07/23 18:11 APTT 27 Seconds (21-31) 10/07/23 18:11 PTT Ratio 1.0 10/07/23 18:11 POC Sodium 143 mmol/L (135-144) 10/07/23 18:27 Sodium 140 mmol/L (136-145) 10/07/23 18:11 POC Potassium 4.4 mmol/L (3.3-5.0) 10/07/23 18:27 Potassium 4.5 mmol/L (3.5-5.1) 10/07/23 18:11 POC Chloride 106 mmol/L (101-112) 10/07/23 18:27 Chloride 107 mmol/L (98-107) 10/07/23 18:11 Carbon Dioxide 27 mmol/L (21-32) 10/07/23 18:11 POC Total CO2 26 mmol/L (24-31) 10/07/23 18:27 Anion Gap 6 (3-11) 10/07/23 18:11 POC Anion Gap 17.0 mmol/L (16-25) 10/07/23 18:27 POC BUN 17 mg/dl (7-18) 10/07/23 18:27 BUN 17 mg/dl (6-23) 10/07/23 18:11 Creatinine 0.71 mg/dl (0.6-1.4) 10/07/23 18:11 POC Creatinine 0.7 mg/dl (0.6-1.3) 10/07/23 18:27 Est Cr Clr Drug Dosing 95.8 ml/min 10/07/23 18:11 Est GFR ( Amer) 103.4 ml/min 10/07/23 18:11 Est GFR (Non-Af Amer) 89.2 ml/min 10/07/23 18:11 BUN/Creatinine Ratio 23.9 (10-20) H 10/07/23 18:11 Glucose 114 mg/dl (70-99(Fasting)) H 10/07/23 18:11 POC Glucose 106 mg/dl (70-99) H 10/07/23 18:20 POC Glucose (other) 116 mg/dl (70-99) H 10/07/23 18:27 Calcium 9.1 mg/dl (8.6-10.3) 10/07/23 18:11 POC Ioniz Calcium Jabier 1.12 mmol/l (1.12-1.32) 10/07/23 18:27 Magnesium 2.1 mg/dl (1.7-2.4) 10/07/23 18:11 Total Bilirubin 0.4 mg/dl (0.2-1.0) 10/07/23 18:11 AST 23 U/L (13-39) 10/07/23 18:11 ALT 26 U/L (7-52) 10/07/23 18:11 Alkaline Phosphatase 51 U/L (34-104) 10/07/23 18:11 Troponin I High Sens 5.2 pg/ml (0-20) 10/07/23 18:11 Total Protein 7.2 gm/dl (6.0-8.3) 10/07/23 18:11 Albumin 4.3 gm/dl (3.4-5.0) 10/07/23 18:11 Globulin 2.9 gm/dl (2.5-4.0) 10/07/23 18:11 Albumin/Globulin Ratio 1.5 (0.9-2) 10/07/23 18:11 Impressions Chest X-Ray 10/07/23 18:57 XR chest 1V portable CLINICAL HISTORY: neuro deficit, acute stroke suspected COMPARISON STUDY: Chest CT March 20, 2022. Chest radiograph November 08, 2022. FINDINGS: There is no pneumothorax or pleural effusion. Moderate cardiomegaly is unchanged. Interstitial thickening is likely chronic. There is no evidence for pulmonary edema. There is no consolidation to suggest pneumonia. IMPRESSION: 1. No acute cardiopulmonary findings. Stable cardiomegaly. 2. Mild interstitial thickening, likely chronic. ACT 112: Negative or not required by law. Electronically signed by: Rik Tan M.D. 10/07/2023 7:[address] 10/07/23 18:57 CT OF THE HEAD WITHOUT CONTRAST CLINICAL HISTORY: neuro deficit, acute stroke suspected. Right-sided weakness. COMPARISON STUDY: Head CT and CTA of the head March 12, 2021. MRI of the brain March 13, 2021. TECHNIQUE: Helical axial images of the head were obtained without IV contrast. Automated exposure control was utilized for the study. A dose lowering technique was utilized adhering to the principles of ALARA. FINDINGS: No acute intracranial hemorrhage, midline shift or mass effect is present. Ventricular system is stable. Basal cisterns are patent. Old right basal ganglia infarct is unchanged. White matter hypodensity suggests small vessel disease. There are no findings to suggest acute dural sinus thrombosis or acute territorial infarct. There is mild cerebral and moderate cerebellar atrophy. There are no calvarial fractures. IMPRESSION: No acute intracranial findings. ACT 112: Negative or not required by law. Electronically signed by: Rik Tan M.D. 10/07/2023 7:29 PM Head CTA 10/07/23 18:57 CTA ANGIOGRAPHY OF THE HEAD CLINICAL HISTORY: neuro deficit, acute stroke suspected COMPARISON STUDY: CTA of the head March 12, 2021. TECHNIQUE: Helical axial images of the head were obtained following uneventful intravenous administration of 117 cc of Optiray. Sagittal and coronal reconstructions were viewed as well as maximal intensity projections on an independent 3-D workstation. Automated exposure control was utilized for the study. A dose lowering technique was utilized adhering to the principles of ALARA. CT DOSE: 1023.15 mGy.cm FINDINGS: No acute intracranial hemorrhage was identified within the head CT will be reported separately. The ventricular system is unremarkable. Old right basal ganglia infarct is unchanged from earlier exams. There is extensive plaque within the bilateral cavernous carotids with mild to moderate stenosis. No central vessel occlusion is identified. There is no intracranial aneurysm. There are mild multifocal stenoses within the posterior circulation. No intracranial dissection. IMPRESSION: 1. No central vessel occlusion. No intracranial aneurysm. 2. Mild to moderate multifocal stenoses within the intracranial vessels. ACT 112: Negative or not required by law. Electronically signed by: Rik Tan M.D. 10/07/2023 7:47 PM Neck CTA 10/07/23 18:57 CT ANGIOGRAPHY OF THE NECK WITH CONTRAST CLINICAL HISTORY: neuro deficit, acute stroke suspected COMPARISON STUDY: CTA of the neck March 12, 2021. Technique: CT angiography of the carotid and vertebral arteries was obtained using Optiray and 3D reconstruction on an independent workstation. NASCET criteria was utilized. Automated exposure control was utilized for the study. A dose lowering technique was utilized adhering to the principles of ALARA. Findings: A few small nodules within the visualized lung apices are unchanged and CT of March 12, 2021. There is no cervical lymphadenopathy. There is no cervical spine fracture. There is moderate plaque of the visualized portions of the aortic arch. The bilateral common carotid, cervical internal carotid and vertebral arteries are patent. There is mild plaque within the carotid bifurcations without stenosis. There is no dissection or aneurysm within the neck. IMPRESSION: No stenosis or dissection within the bilateral common carotid, cervical internal carotid or vertebral arteries. ACT 112: Negative or not required by law. Electronically signed by: Rik Tan M.D. 10/07/2023 7:43 PM ECG Additional Comments: Study reveals NSR at 66, 1st degree AV block with YH=529, QRS=78. LXh=942, no acute ischemic changes PG Care Time/CCT Total # of Minutes Spent Total Time Spent with Patient: Total time spent is greater than 50% in coordination of care (as documented) at patient's floor/unit and/or counseling patient: Coding Level of Care Code 84259 INT INP/OBS CARE 2/55MIN Diagnoses Stroke-like symptoms R29.90 HTN (hypertension) I10 Interstitial lung disease J84.9
[2023-10-07] MEDS ORDERED: PHARMACIST DISCHARGE MED REC CONSULT PRN (22:57)
[2023-10-07] MEDS ORDERED: ACETAMINOPHEN 325 MG TAB PO PRN (22:57)
[2023-10-08] MEDS ORDERED: ALBUTEROL HFA 8 GM INHALER INH PRN (01:24)
[2023-10-08 04:56] LABS: Basophils # (auto) 0.05 K/uL (0.00-0.20); Basophils % (auto) 0.7 %; Eosinophils # (auto) 0.34 K/uL (0.00-0.50); Eosinophils % (auto) 4.5 %; Hematocrit (blood only) 42.4 % (42.0-52.0); Immature Granulocytes # (auto) 0.04 K/uL (0.01-0.20); Immature Granulocytes % (auto) 0.5 %; Lymphocytes # (auto) 1.95 K/uL (1.20-3.40); Lymphocytes % (auto) 25.9 %; Mean Corpuscular Hemoglobin 29.5 pg (25.0-34.0); Mean Corpuscular Volume 89.5 fL (80.0-100.0); Mean Platelet Volume 10.3 fL (9.4-12.4); Monocytes # (auto) 0.69 K/uL (0.11-0.59); Monocytes % (auto) 9.2 %; Neutrophils # (auto) 4.47 K/uL (1.40-6.50); Neutrophils % (auto) 59.2 %; Platelet Count 169 K/uL (130-400); RDW Coefficient of Variation 12.9 % (11.5-14.5); RDW Standard Deviation 42.3 fL (36.4-46.3); Red Blood Count 4.74 M/uL (4.70-6.10); White Blood Count 7.54 K/ul (4.8-10.8)
[2023-10-08 05:12] LABS: BUN Creatinine Ratio 18.9 (10-20); Calcium 8.3 mg/dl (8.6-10.3); Creatinine Clr Calc Pharmacy 91.9 ml/min; Est GFR (African American) 101.7 ml/min; Est GFR (Non-African American) 87.7 ml/min; Potassium 3.7 mmol/L (3.5-5.1)
[2023-10-08 05:13] LABS: Chol HDL Ratio 5.7 (0-5)
--- NOTE | 2023-10-08 07:34 | Electrocardiogram Report ---
Test Reason : Blood Pressure : / mmHG Vent. Rate : 066 BPM Atrial Rate : 066 BPM P-R Int : 266 ms QRS Dur : 078 ms QT Int : 394 ms P-R-T Axes : 049 -06 025 degrees QTc Int : 413 ms Sinus rhythm with 1st degree A-V block Possible Left atrial enlargement Minimal voltage criteria for LVH, may be normal variant Abnormal ECG Confirmed by Trenton Arnold ([id number]) on 10/08/2023 7:34:17 AM Referred By: REFERRED SELF Confirmed By:Woodrow Arnold
[2023-10-08] MEDS: GADOBUTROL 15ML VIAL IV ONE (10:03)
--- NOTE | 2023-10-08 10:35 | Magnetic Resonance Report ---
Brain MRI WITH AND WITHOUT CONTRAST HISTORY: Right hand and arm numbness and weakness. CVA TECHNIQUE: Multiplanar multisequence MRI of the brain was performed both before and after the intrave nous administration of contrast. COMPARISON STUDY: Head CT 10/07/2023. Brain MRI 03/13/2021. FINDINGS: There is no mass, hematoma, midline shift, or acute infarct. The paranasal sinuses are jesus r. The mastoid air cells are clear. The ventricles and sulci demonstrate moderate age-related involut ional changes. Scattered foci of T2 hyperintensity seen within the periventricular and subcortical wh ite matter are nonspecific but suggestive of moderate microvascular ischemic changes. The major vascu lar flow voids at the skull base are well-maintained. There is an old right basal ganglia infarct aga in noted. Postcontrast sequences show no areas of abnormal enhancement. A few scattered punctate hypo intense foci in the gradient echo sequence again noted. IMPRESSION: 1. No acute infarct or intracranial hemorrhage. 2. Atrophy and microvascular ischemic change is again noted. 3. Old right basal ganglia infarct, unchanged. ACT 112: Negative or not required by law. Electronically signed by: Ga Wu M.D. 10/08/2023 10:34 AM
[2023-10-08] MEDS: ATORVASTATIN 40 MG TAB PO SCH (11:42)
[2023-10-08] MEDS: LOSARTAN POTASSIUM 50 MG TAB PO SCH (11:42)
[2023-10-08] MEDS: CLOPIDOGREL BISULFATE 75 MG TAB PO SCH (11:42)
[2023-10-08] MEDS: ASPIRIN 81 MG ECTAB PO SCH (11:42)
[2023-10-08] MEDS: METOPROLOL SUCC 25MG EXT REL TAB PO SCH (11:42)
--- NOTE | 2023-10-08 14:39 | XCELERA ---
[id number]\[id number]___[id number]
[2023-10-08] MEDS ORDERED: STROKE PATIENT DISCHARGE STA (15:55)
--- NOTE | 2023-10-08 15:56 | Discharge Summary ---
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 Patient had some symptoms this morning around 0900 - mostly numbness of the RUE and RLE with gait instability as well as a mild headache and some dizziness. The symptoms lasted approximately one hour then resolved. He was feeling back to normal until around 1400 when his symptoms returned - mostly numbness of the right ankle and foot. He denies visual deficit, vertigo, speech deficit. No additional complaints at this time. Patient feels that his symptoms have overall been improving since being in the ER - only now with numbness of his right toes. Patient with longstanding history of HTN. He is compliant with his medications. He reports checking his blood pressure at home during his event and it was elevated at 164/82. Per EMS blood pressure was in the 190s. Patient had similar episode in the past years ago with left sided numbness. He had an MRI which was NEGATIVE for acute CVA and was told that he had a TIA. ER Course: ASA 324mg NSS Principal Dx & Hospital Course #1 = Principal Diagnosis (1) TIA (transient ischemic attack): (2) Stroke-like symptoms: 78yo male with history of HTN presents with two episodes of numbness of the right side. Patient hypertensive on arrival. Lab workup largely unremarkable. CT scans of the head and vasculature with old ischemic disease as well as mild to moderate stenosis of the posterior intracranial vessels. Symptoms continue to improve. Dx to include TIA or CVA -Observation to medical with telemetry -Neuro checks and NIHSS per protocol -Maintain aspiration precautions, fall precautions and seizure precautions -Check HgbA1C and Lipid panel -Check 2D echo with bubble study -Check MRI brain -Continue ASA 81mg po daily -Initiate Plavix 75mg po daily - ABCD2 score=5 -Initiate Atorvastatin 40mg po daily -PT/OT evaluation appreciated (3) HTN (hypertension): Patient with history of HTN. He reports compliance with his medications but BP remains high at home -Hold Losartan and Metoprolol for now to allow for permisive HTN -Monitor (4) Interstitial lung disease: Patient with interstitial lung disease likely secondary to occupational exposure. He follows with Pulmonary for regular pulmonary function testing. Last seen in July. Has had bronchoscopy in the past -Albuterol PRN -Continue home O2 - 2L continuous Updated Medication List Medication Instructions Recorded Confirmed Type aspirin 81 mg tablet,delayed 81 mg PO QAM #30 tabs 03/14/21 10/07/23 Rx release losartan 50 mg tablet 50 mg PO BID #60 tabs 02/06/23 10/07/23 Rx Oxygen Home E0424 04/17/23 07/25/23 History Oxygen Home E0424 #1 ea 07/05/23 07/25/23 Rx metoprolol succinate 25 mg 25 mg PO DAILY #90 tabs 09/18/23 10/07/23 Rx tablet,extended release 24 hr amlodipine 5 mg tablet 5 mg PO DAILY #30 tabs 10/08/23 Rx atorvastatin 40 mg tablet 40 mg PO QAM #30 tabs 10/08/23 Rx clopidogrel 75 mg tablet 75 mg PO QAM #20 tabs 10/08/23 Rx Hospital Stay Data Consultations 10/07/23 21:24 ED Decision to Admit Stat Diagnostic Imagining Performed 10/07/23 18:57 CT angio head w con Stat CT angio neck with con Stat CT head/brain wo con Stat 10/08/23 09:00 MR brain wo/w con Routine Pending Results Patient Have Any Pending Studies at Discharge: Yes (Lyme disease test) Discharge Instructions Given to Patient (Per Discharging Provider) You were admitted for right sided numbness and weakness. You had a brain MRI which did not show a new stroke. You may have had a transient ischemic attack (some call this a mini stroke). There is also a chance that you have Lyme disease and a test for this was pending at the time of discharge. Your PCP can follow up on this after discharge. Your blood pressures need improved control to help prevent future strokes or TIA. You were started on a new medication called amlodipine for this to be taken in addition to your other blood pressure medications. You were also started on Plavix as a second blood thinner to be taken for 20 more days to prevent strokes and TIAs in this time frame which is the highest risk time. Another new medication is atorvastatin which is a cholesterol pill that reduces chances of future strokes. Risk Factors for Stroke: You can reduce your chances of stroke by working with your medical provider to adopt a healthy lifestyle. Some specific ways to lower your chance of stroke are: * If you are a smoker, now is the time to stop smoking cigarettes * If you are diabetic, improve the control of your blood sugars * Avoid excessive amounts of alcohol * Control high blood pressure * Lose weight if you are overweight * Be sure to lead an active lifestyle * Eat a healthy diet low in salt, cholesterol and fat You should know about other risk factors for stroke that you are unable to control. These include: * Age 55 years or older * Male gender * Certain racial groups: , or / * Family History of Stroke, Mini stroke or Heart Attack * Sickle Cell Disease Follow Up: It is important for you to keep your follow up appointments with your medical provider. Who to Call and When: Medical Emergencies: Call 911 immediately if you experience any of the following warning signs and symptoms of Stroke: * Sudden numbness or weakness of the face, arm or leg, especially on one side of the body * Sudden confusion, trouble speaking or understanding * Sudden trouble seeing in one or both eyes * Sudden trouble walking, dizziness, loss of balance or coordination * Sudden severe headache with no cause Do not delay calling 911 if you experience any warning signs or symptoms of a stroke. Delay in seeking medical attention may affect what treatments can be given to you. . Coding Diagnoses TIA (transient ischemic attack) G45.9 Stroke-like symptoms R29.90 HTN (hypertension) I10 Interstitial lung disease J84.9
[2023-10-08] MEDS: amLODIPine BESYLATE 5 MG TAB PO ONE (16:02)
[2023-10-09 07:22] LABS: Estimated Average Glucose 151 mg/dl; Hemoglobin A1C 6.9 % (4.5-5.6)
[2023-10-09] MEDS ORDERED: amLODIPine BESYLATE 5 MG TAB PO SCH (09:00)
--- NOTE | 2023-10-10 10:58 | Pharmacy Report ---
Pharmacy Progress Note - Date of Service October 10, 2023 - Progress Note * Attempted to reach the patient twice via telephone on 10/08 and 10/09 to provider stroke discharge counseling. * No answer on either attempt and no ability to leave a voicemail. * No further attempts will be made.
== END 2023-10-08 16:46 | disposition home or self-care (01) ==
LOC: EDINP 18:11 → ED 18:11 → SUATTDRO 22:22 → EDINP 22:57 → 2W 10-08 10:30

== ENCOUNTER 2023-10-10 12:32 | Inpatient (IN) ==
[2023-10-10 13:21] LABS: Hematocrit (blood only) 50.9 % (42.0-52.0); Hemoglobin 16.7 g/dl (14.0-18.0); Mean Corpuscular Hemoglobin 29.2 pg (25.0-34.0); Mean Corpuscular Hgb Conc 32.8 g/dL (32.0-36.0); Mean Platelet Volume 10.3 fL (9.4-12.4); Platelet Count 204 K/uL (130-400); RDW Coefficient of Variation 13.1 % (11.5-14.5); RDW Standard Deviation 42.3 fL (36.4-46.3); Red Blood Count 5.72 M/uL (4.70-6.10); White Blood Count 10.35 K/ul (4.8-10.8)
--- NOTE | 2023-10-10 13:33 | CT Scan Report ---
HEAD CT NONCONTRAST CT DOSE: 625.8 mGy.cm HISTORY: Right-sided weakness. Neuro deficit, acute, stroke suspected TECHNIQUE: Multiaxial CT images of the head were performed without the use of intravenous contrast. A utomated exposure control was utilized for this study. A dose lowering technique was utilized adheri ng to the principles of ALARA. Comparison: Brain MRI 10/08/2023. Head CT 10/07/2023. Findings: The paranasal sinuses and mastoid air cells are clear. The calvarium and skull base are int act. There is no mass, hematoma, midline shift, acute infarct. White matter hypodensity is nonspecifi c but suggestive of microvascular ischemic change. The ventricles and sulci demonstrate mild age-rela aixa involutional changes. Old right basal ganglia infarct again noted. Impression: No significant change compared to the prior study. No acute intracranial abnormality. ACT 112: Negative or not required by law. Electronically signed by: Ga Wu M.D. 10/10/2023 1:31 PM
[2023-10-10 13:49] LABS: Partial Thromboplastin Time 27 Seconds (21-31); Prothrombin Time 10.9 Seconds (9.0-12.0)
[2023-10-10 13:57] LABS: Alanine Aminotransferase 28 U/L (7-52); Albumin Globulin Ratio 1.4 (0.9-2); Albumin Level 4.5 gm/dl (3.4-5.0); Alkaline Phosphatase 59 U/L (34-104); Anion Gap 7 (3-11); Aspartate Aminotransferase 26 U/L (13-39); BUN Creatinine Ratio 24.7 (10-20); Bilirubin,Total 0.7 mg/dl (0.2-1.0); Blood Urea Nitrogen 19 mg/dl (6-23); Calcium 9.3 mg/dl (8.6-10.3); Carbon Dioxide 28 mmol/L (21-32); Chloride 104 mmol/L (98-107); Est GFR (Non-African American) 86.3 ml/min; Globulin 3.2 gm/dl (2.5-4.0); Glucose 105 mg/dl (70-99(Fasting)); Magnesium 2.1 mg/dl (1.7-2.4); Potassium 4.3 mmol/L (3.5-5.1); Sodium 139 mmol/L (136-145); Total Protein 7.7 gm/dl (6.0-8.3)
--- NOTE | 2023-10-10 14:48 | Emergency Department Note ---
Impression & Plan Acute right-sided weakness ED Provider Note NAME: JOSELUIS RODRIGUEZ AGE: 78 SEX: M : 1945 ARRIVES VIA: Walk-In INFORMANT: Patient, ED PROVIDER(S): Glenn Winslow MD CHIEF COMPLAINT: Right-sided weakness MEDICAL DECISION MAKING: Patient presents due to concern for worsening right-sided weakness. IV was established and blood work is obtained. Repeat CT of the head was performed. The patient's blood work is grossly unremarkable with exception of trace elevation in blood sugar. 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 The patient has virtually no strength of the right upper or right lower extremity and cannot ambulate or even use a walker. Patient was seen by his primary care and referred here. I did speak with case management to assess whether not the patient could be placed but unable to do so at this time. I did speak with the inpatient medicine service and the patient was admitted. Prior to admission by inpatient service they did request to speak with neurology. I spoke with Dr. Ambrocio Henry with [facility] neurology. CT angiography's were unchanged she recommended continuing dual antiplatelet therapy MRI and also MRI of the cervical spine. This was conveyed to the inpatient service. Discussion w/ other healthcare providers: Dr. Colunga Andary [facility] neurology Dr. Martino inpatient medicine service Prior /Outside records reviewed: I reviewed a discharge summary from October [address] Trent. The patient had presented at that time due to concern for right upper and right lower extremity gait instability and dizziness. Patient did receive full dose aspirin and fluids at that time. Patient does have a history of hypertension and interstitial lung disease with 2 L of oxygen. I did review patient's primary care visit note does relate similar presentation that the patient had worsening mobility of his right upper and right lower extremity. Patient has been taking the aspirin Plavix and atorvastatin. Patient's echo showed no cardiac source of emboli mild LVH with an EF of 60 to 65%. Patient did have an old right basal ganglier infarct that was noted on CT of the head extensive plaque on CTA of the head and the bilateral cavernous carotids with mild to moderate stenosis. Differential diagnosis: Infection, dehydration, metabolic abnormality, hypo/hyperglycemia, electrolyte imbalance, anemia, UTI, pneumonia, thyroid dysfunction among others were considered. Diagnostics, as interpreted by me: ECG: Sinus with first-degree AV block, rate 71 prolonged TN, normal axis no ST elevations. Cardiac monitoring: An order was placed for continuous cardiac monitoring. The monitor shows a rate of 75 with sinus rhythm. Patient was placed on pulse oximetry Medical decision rules: None Imaging studies: I informally interpreted the patient's CT head w/o obvious ICH with formal report to follow. HPI: Patient presents due to concern for worsening right-sided weakness. The patient relates that he was recently admitted due to concern for worsening weakness of his right side was told that he did not have any new stroke but that he may have suffered a TIA and was discharged home. Patient does state though that at the time of his discharge it had been recommended that he get placed in a rehab but the patient and his family members stated that they had a home health nurse and they were comfortable with going home. Patient states that his initial symptoms began on Monday where he had some balance issues that seem to worsen over the course of the day and thus presented to the emergency department at which time the patient did have a CT of the head and blood work completed and the patient was admitted. Patient was discharged home on Monday and noticed some worsening symptoms beginning Monday to where he was unable to use a walker very well. The patient did have a follow-up with his primary care doctor today and was referred here for further evaluation and treatment. Patient did see Dr. Nation. PAST MEDICAL HISTORY: See Below PAST SURGICAL HISTORY: See Below SOCIAL HISTORY: See Below HOME MEDICATIONS: See Below ALLERGIES: See Below VITALS: See Below PHYSICAL EXAMINATION: GENERAL: NAD, non-toxic. Wearing glasses. EYE EXAM: Normal conjunctiva. PERRL, no anisocoria and EOM's grossly intact w/o pain. OROPHARYNX: Moist mucus membranes, grossly normal dentition. NECK: Trachea midline, no stridor. Supple, no nuchal rigidity, no adenopathy, non-tender. No signs of meningismus. FROM of the neck with good chin to chest and neck extension. LUNGS: Clear to auscultation. Normal chest wall mechanics. HEART: NSR, no MRG. ABDOMEN: Abdomen soft, non-tender, no masses, no rebound or guarding. BACK: No CVA TTP. SKIN: No rashes and no bruising. UPPER EXTREMITIES: Upper extremities are grossly normal. LOWER EXTREMITIES: Grossly normal, no edema. NEURO EXAM: A&O x3, cranial nerves II-XII grossly intact, normal speech, right- sided hemiplegia unable to move right arm or right leg. 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 History of Incidentally found on imaging in 2020("Old right basal ganglia infract per 2020 brain MRI) - PCP aware- started on ASA and statin Chronic sinusitis Hearing deficit Carpal tunnel syndrome, bilateral Hx of bladder cancer Hypertension Traction bronchiectasis Likely secondary to ILD Dyspnea on exertion Six minute walk test done- patient does not qualify for O2- encouraged weight loss per pulm records Mediastinal lymphadenopathy Multiple pulmonary nodules determined by computed tomography of lung Interstitial lung disease Idiopathic interstitial pneumonia per pulm records Reason for upcoming procedure Surgical History History of colonoscopy History of tooth extraction History of cystoscopy "cancer spot removed" History of nasal surgery History of total left hip replacement Family History Other No family history of adverse response to anesthesia Denies family history of Ovarian cancer Prostate cancer Myocardial infarction Breast cancer Colorectal cancer Social History Smoking Status: Never smoker Tobacco Type: Cigarettes Age Started Using Tobacco: 19; Age Quit Using Tobacco: 20; packs per day: 0; Second Hand Exposure: No; Do You Dip or Chew Tobacco: No; Hx Alcohol Use: No Hx Substance Use: No Preferred Language: [place]ican Communication Ability: Effective Visual Impairment: No Limitations Hearing Ability: Normal Sound Ranging Crewmember Required: No Beliefs That Will Affect Care: None marital status: Current Living Situation: Family Current Living Situation Comment: Lives with spouse current occupational status: retired Feels Safe at Home: Yes Diet: regular caffeine: No Dental Care, Regularly: No Physical Activity Frequency: Does not Exercise Seatbelt Use: always Sunscreen Use: No Assistive Devices: Cane, Scooter/Electric Scooter and Walker Allergies Allergies Allergy/AdvReac Type Severity Reaction Status Date / Time No Known Allergies Allergy Verified 10/10/23 11:32 Home Meds Home Medications Medication Instructions Recorded Confirmed Oxygen Home [id number] 04/17/23 10/10/23 Previous Rx's Medication Instructions Recorded aspirin 81 mg tablet,delayed 81 mg PO QAM #30 tabs 03/14/21 release losartan 50 mg tablet 50 mg PO BID #60 tabs 02/06/23 Oxygen Home E0424 #1 ea 07/05/23 metoprolol succinate 25 mg 25 mg PO DAILY #90 tabs 09/18/23 tablet,extended release 24 hr amlodipine 5 mg tablet 5 mg PO DAILY #30 tabs 10/08/23 atorvastatin 40 mg tablet 40 mg PO QAM #30 tabs 10/08/23 clopidogrel 75 mg tablet 75 mg PO QAM #20 tabs 10/08/23 Results & Data (ED) Vital Signs Vital Signs - 24 hr 10/10/23 12:36 10/10/23 16:10 10/10/23 16:10 Temperature 36.7 C Temperature Source Temporal Artery Scan Pulse Rate 75 Pulse Rate [Apical] 67 Pulse Rhythm Pulse Rhythm [Apical] Regular Pulse Strength [Apical] Normal Respiratory Rate 20 17 Respiratory Effort / Characteristics Non-Labored Spontaneous Non-Labored Spontaneous Respiratory Depth Normal Normal Respiratory Pattern Regular Regular Blood Pressure 133/75 Blood Pressure Mean 94 Pulse Oximetry 95 96 94 Oxygen Delivery Method Room Air Room Air Room Air Sepsis Recent Fever Within 48 Hours No Sepsis New/Unexplained Change in Mental Status No Sepsis Action Taken by Nursing No Action Required 10/10/23 16:10 10/10/23 16:40 Temperature Temperature Source Pulse Rate 63 67 Pulse Rate [Apical] Pulse Rhythm Regular Pulse Rhythm [Apical] Pulse Strength [Apical] Respiratory Rate 17 Respiratory Effort / Characteristics Respiratory Depth Respiratory Pattern Blood Pressure Blood Pressure Mean Pulse Oximetry 94 Oxygen Delivery Method Room Air Sepsis Recent Fever Within 48 Hours Sepsis New/Unexplained Change in Mental Status Sepsis Action Taken by [facility] Medications Current Medication List: was personally reviewed by me Laboratory Data Attestation: I reviewed the patient's lab results. 10/10/23 12:51 10/10/23 12:51 Lab Results 10/10/23 Range/Units 12:51 WBC 10.35 (4.8-10.8) K/ul RBC 5.72 (4.70-6.10) M/uL Hgb 16.7 (14.0-18.0) g/dl Hct 50.9 (42.0-52.0) % MCV 89.0 (80.0-100.0) fL MCH 29.2 (25.0-34.0) pg MCHC 32.8 (32.0-36.0) g/dL RDW Std Deviation 42.3 (36.4-46.3) fL RDW Coeff of Rakel 13.1 (11.5-14.5) % Plt Count 204 (130-400) K/uL MPV 10.3 (9.4-12.4) fL PT 10.9 (9.0-12.0) Seconds INR 1.0 (0.9-1.1) APTT 27 (21-31) Seconds PTT Ratio 1.0 Sodium 139 (136-145) mmol/L Potassium 4.3 (3.5-5.1) mmol/L Chloride 104 (98-107) mmol/L Carbon Dioxide 28 (21-32) mmol/L Anion Gap 7 (3-11) BUN 19 (6-23) mg/dl Creatinine 0.77 (0.6-1.4) mg/dl Est Cr Clr Drug Dosing Not Reportable Est GFR ( Amer) 100.0 ml/min Est GFR (Non-Af Amer) 86.3 ml/min BUN/Creatinine Ratio 24.7 H (10-20) Glucose 105 H (70-99(Fasting)) mg/dl Calcium 9.3 (8.6-10.3) mg/dl Magnesium 2.1 (1.7-2.4) mg/dl Total Bilirubin 0.7 (0.2-1.0) mg/dl AST 26 (13-39) U/L ALT 28 (7-52) U/L Alkaline Phosphatase 59 (34-104) U/L Troponin I High Sens 4.9 (0-20) pg/ml Total Protein 7.7 (6.0-8.3) gm/dl Albumin 4.5 (3.4-5.0) gm/dl Globulin 3.2 (2.5-4.0) gm/dl Albumin/Globulin Ratio 1.4 (0.9-2) Administered Medications Enoxaparin Sodium (Enoxaparin Inj 40 Mg/0.4 Ml Syr) 40 mg SQ Q24H CARO Stop: 11/09/23 16:59 Last Admin: 10/10/23 17:38 Dose: 40 mg Documented By: HS Discontinued Medications Ioversol (Optiray 320 125ml) 116 ml IV ONCE ONE Stop: 10/10/23 15:58 Last Admin: 10/10/23 15:58 Dose: 116 ml Documented By: [facility] Imaging Data Radiologist's Impression: Head CT 10/10/23 12:[address] DOSE: 625.8 mGy.cm HISTORY: Right-sided weakness. Neuro deficit, acute, stroke suspected TECHNIQUE: Multiaxial CT images of the head were performed without the use of intravenous contrast. Automated exposure control was utilized for this study. A dose lowering technique was utilized adhering to the principles of ALARA. Comparison: Brain MRI 10/08/2023. Head CT 10/07/2023. Findings: The paranasal sinuses and mastoid air cells are clear. The calvarium and skull base are intact. There is no mass, hematoma, midline shift, acute infarct. White matter hypodensity is nonspecific but suggestive of microvascular ischemic change. The ventricles and sulci demonstrate mild age-related involutional changes. Old right basal ganglia infarct again noted. Impression: No significant change compared to the prior study. No acute intracranial abnormality. ACT 112: Negative or not required by law. Electronically signed by: Ga Wu M.D. 10/10/2023 1:31 PM Head CTA 10/10/23 15:15 CT ANGIOGRAM OF THE BRAIN; CT ANGIOGRAM OF THE NECK CLINICAL HISTORY: Right hemiplegia. COMPARISON STUDY: Unenhanced CT of the brain performed the same day 10/07/2023. CT angiogram of the head and neck dated 10/07/2023. MRI of the brain dated 10/08/2023. TECHNIQUE: Following the IV administration of 116 of Optiray 320, CT angiogram of the head and neck was performed from the aortic arch to the vertex. Images are reviewed in the axial, sagittal, and coronal planes. 3-D MIPS images are created and assessed. IV contrast was administered without complication. All measurements were calculated based on NASCET criteria. A dose lowering technique was utilized adhering to the principles of ALARA. CT DOSE: 560.27 mGy.cm FINDINGS: Brain parenchyma: There is age related involutional change noting advanced subcortical and periventricular microangiopathic disease. There is no evidence of hemorrhage, mass effect, or acute territorial ischemia noting angiographic phase technique. A chronic infarct is noted in the right periventricular white matter. There is no evidence of enhancing mass lesion on the angiogram phase images. The ventricles, sulci, and cisterns are prominent secondary to additional change. Hameed-white matter differentiation is preserved. No extra- axial fluid collection is seen. Thoracic aorta: There is atherosclerotic calcification of the thoracic aorta. Visualized portions of the thoracic aorta are normal in caliber. The aortic arch demonstrates 4-vessel variant anatomy. The left vertebral artery arises directly from the thoracic aorta. Right carotid arterial system: The right common carotid artery is widely patent, as are the right internal and external carotid arteries. Mild calcified plaque is noted in the carotid bulb. Left carotid arterial system: The left common carotid artery is widely patent, as are the left internal and external carotid arteries. Vertebral arteries: Patent bilaterally noting mild right-sided dominance. Subclavian arteries: Widely patent bilaterally. Intracranial vasculature: There is atherosclerotic calcification of the cavernous carotid arteries. The internal carotid arteries are patent at the skull base, as are the anterior and middle cerebral arteries bilaterally. The vertebrobasilar system and posterior cerebral arteries are patent. There is mild right-sided dominance. Atherosclerotic plaque and irregularity seen involving the right vertebral artery at the skull base. This causes less than 50% luminal narrowing. There is a right posterior communicating artery. There is [id number] focal stenosis of the right anterior cerebral artery seen on coronal MIPS image #29. No aneurysm or focal vessel cut off is seen throughout the intracranial circulation. Jugular veins: Patent bilaterally. Dural sinuses: Patent. Lung apices: Partially visualized upper lobe lung parenchyma appears clear noting dependent atelectasis. Soft tissues: The visualized pharyngeal soft tissues are normal in appearance noting angiographic phase technique. The oropharyngeal airway appears widely patent. Calcified sialoliths are noted in the parotid glands. The salivary glands are otherwise normal in appearance. The thyroid gland is within normal limits. No cervical lymphadenopathy is seen. Skeletal structures: The skeletal structures are osteopenic. The calvarium appears intact. The cervical spine is maintained noting multilevel spondylosis. Orbits: The bony orbits are intact. Orbital contents are normal as visualized. Sinuses and mastoids: The paranasal sinuses are clear. The mastoid air cells are well pneumatized. IMPRESSION: 1. There is no evidence of hemorrhage, mass effect, or acute territorial ischemia noting angiographic phase technique. 2. No high-grade stenosis or central vessel occlusion is identified throughout the intracranial circulation. No significant change from 10/07/2023. 3. Unremarkable CT angiogram of the neck. No significant change from 10/07/2003. ACT 112: Negative or not required by law. Electronically signed by: Aime Garzon M.D. 10/10/2023 4:14 PM Neck CTA 10/10/23 15:15 CT ANGIOGRAM OF THE BRAIN; CT ANGIOGRAM OF THE NECK CLINICAL HISTORY: Right hemiplegia. COMPARISON STUDY: Unenhanced CT of the brain performed the same day 10/07/2023. CT angiogram of the head and neck dated 10/07/2023. MRI of the brain dated 10/08/2023. TECHNIQUE: Following the IV administration of 116 of Optiray 320, CT angiogram of the head and neck was performed from the aortic arch to the vertex. Images are reviewed in the axial, sagittal, and coronal planes. 3-D MIPS images are created and assessed. IV contrast was administered without complication. All measurements were calculated based on NASCET criteria. A dose lowering technique was utilized adhering to the principles of ALARA. CT DOSE: 560.27 mGy.cm FINDINGS: Brain parenchyma: There is age related involutional change noting advanced subcortical and periventricular microangiopathic disease. There is no evidence of hemorrhage, mass effect, or acute territorial ischemia noting angiographic phase technique. A chronic infarct is noted in the right periventricular white matter. There is no evidence of enhancing mass lesion on the angiogram phase images. The ventricles, sulci, and cisterns are prominent secondary to additional change. Hameed-white matter differentiation is preserved. No extra- axial fluid collection is seen. Thoracic aorta: There is atherosclerotic calcification of the thoracic aorta. Visualized portions of the thoracic aorta are normal in caliber. The aortic arch demonstrates 4-vessel variant anatomy. The left vertebral artery arises directly from the thoracic aorta. Right carotid arterial system: The right common carotid artery is widely patent, as are the right internal and external carotid arteries. Mild calcified plaque is noted in the carotid bulb. Left carotid arterial system: The left common carotid artery is widely patent, as are the left internal and external carotid arteries. Vertebral arteries: Patent bilaterally noting mild right-sided dominance. Subclavian arteries: Widely patent bilaterally. Intracranial vasculature: There is atherosclerotic calcification of the cavernous carotid arteries. The internal carotid arteries are patent at the skull base, as are the anterior and middle cerebral arteries bilaterally. The vertebrobasilar system and posterior cerebral arteries are patent. There is mild right-sided dominance. Atherosclerotic plaque and irregularity seen involving the right vertebral artery at the skull base. This causes less than 50% luminal narrowing. There is a right posterior communicating artery. There is [id number] focal stenosis of the right anterior cerebral artery seen on coronal MIPS image #29. No aneurysm or focal vessel cut off is seen throughout the intracranial circulation. Jugular veins: Patent bilaterally. Dural sinuses: Patent. Lung apices: Partially visualized upper lobe lung parenchyma appears clear noting dependent atelectasis. Soft tissues: The visualized pharyngeal soft tissues are normal in appearance noting angiographic phase technique. The oropharyngeal airway appears widely patent. Calcified sialoliths are noted in the parotid glands. The salivary glands are otherwise normal in appearance. The thyroid gland is within normal limits. No cervical lymphadenopathy is seen. Skeletal structures: The skeletal structures are osteopenic. The calvarium appears intact. The cervical spine is maintained noting multilevel spondylosis. Orbits: The bony orbits are intact. Orbital contents are normal as visualized. Sinuses and mastoids: The paranasal sinuses are clear. The mastoid air cells are well pneumatized. IMPRESSION: 1. There is no evidence of hemorrhage, mass effect, or acute territorial ischemia noting angiographic phase technique. 2. No high-grade stenosis or central vessel occlusion is identified throughout the intracranial circulation. No significant change from 10/07/2023. 3. Unremarkable CT angiogram of the neck. No significant change from 10/07/2003. ACT 112: Negative or not required by law. Electronically signed by: Aime Garzon M.D. 10/10/2023 4:14 PM Discharge Plan Visit Data Chief Complaint: Stroke/CVA Symptoms Stated Complaint: STROKE SYMPTOMS, WEAKNESS ED Provider: Glenn Winslow Discharge Problem: Acute right-sided weakness Patient Disposition: Admitted As Inpatient Discharge Instructions Interventions: ED Discharge Assessment Last Done: 10/10/23 19:50
[2023-10-10] MEDS: OPTIRAY 320 125ml IV ONE (15:58)
--- NOTE | 2023-10-10 16:16 | CT Scan Report ---
CT ANGIOGRAM OF THE BRAIN; CT ANGIOGRAM OF THE NECK CLINICAL HISTORY: Right hemiplegia. COMPARISON STUDY: Unenhanced CT of the brain performed the same day 10/07/2023. CT angiogram of the he ad and neck dated 10/07/2023. MRI of the brain dated 10/08/2023. TECHNIQUE: Following the IV administration of 116 of Optiray 320, CT angiogram of the head and neck w as performed from the aortic arch to the vertex. Images are reviewed in the axial, sagittal, and dre nal planes. 3-D MIPS images are created and assessed. IV contrast was administered without complicati on. All measurements were calculated based on NASCET criteria. A dose lowering technique was utilize d adhering to the principles of ALARA. CT DOSE: 560.27 mGy.cm FINDINGS: Brain parenchyma: There is age related involutional change noting advanced subcortical and periventri cular microangiopathic disease. There is no evidence of hemorrhage, mass effect, or acute territorial ischemia noting angiographic phase technique. A chronic infarct is noted in the right periventricula r white matter. There is no evidence of enhancing mass lesion on the angiogram phase images. The vent ricles, sulci, and cisterns are prominent secondary to additional change. Hameed-white matter different iation is preserved. No extra-axial fluid collection is seen. Thoracic aorta: There is atherosclerotic calcification of the thoracic aorta. Visualized portions of the thoracic aorta are normal in caliber. The aortic arch demonstrates 4-vessel variant anatomy. The left vertebral artery arises directly from the thoracic aorta. Right carotid arterial system: The right common carotid artery is widely patent, as are the right int ernal and external carotid arteries. Mild calcified plaque is noted in the carotid bulb. Left carotid arterial system: The left common carotid artery is widely patent, as are the left internet marketing strategist al and external carotid arteries. Vertebral arteries: Patent bilaterally noting mild right-sided dominance. Subclavian arteries: Widely patent bilaterally. Intracranial vasculature: There is atherosclerotic calcification of the cavernous carotid arteries. T he internal carotid arteries are patent at the skull base, as are the anterior and middle cerebral ar teries bilaterally. The vertebrobasilar system and posterior cerebral arteries are patent. There is m ild right-sided dominance. Atherosclerotic plaque and irregularity seen involving the right vertebral artery at the skull base. This causes less than 50% luminal narrowing. There is a right posterior co mmunicating artery. There is [id number] focal stenosis of the right anterior cerebral artery se en on coronal MIPS image #29. No aneurysm or focal vessel cut off is seen throughout the intracranial circulation. Jugular veins: Patent bilaterally. Dural sinuses: Patent. Lung apices: Partially visualized upper lobe lung parenchyma appears clear noting dependent atelectas is. Soft tissues: The visualized pharyngeal soft tissues are normal in appearance noting angiographic pha se technique. The oropharyngeal airway appears widely patent. Calcified sialoliths are noted in the p arotid glands. The salivary glands are otherwise normal in appearance. The thyroid gland is within no rmal limits. No cervical lymphadenopathy is seen. Skeletal structures: The skeletal structures are osteopenic. The calvarium appears intact. The cervic al spine is maintained noting multilevel spondylosis. Orbits: The bony orbits are intact. Orbital contents are normal as visualized. Sinuses and mastoids: The paranasal sinuses are clear. The mastoid air cells are well pneumatized. IMPRESSION: 1. There is no evidence of hemorrhage, mass effect, or acute territorial ischemia noting angiographic phase technique. 2. No high-grade stenosis or central vessel occlusion is identified throughout the intracranial circu lation. No significant change from 10/07/2023. 3. Unremarkable CT angiogram of the neck. No significant change from 10/07/2003. ACT 112: Negative or not required by law. Electronically signed by: Aime Garzon M.D. 10/10/2023 4:14 PM
[2023-10-10] MEDS ORDERED: PHARMACIST DISCHARGE MED REC CONSULT PRN (16:31)
--- NOTE | 2023-10-10 17:06 | History & Physical Report ---
Date of Service October 10, 2023 Assessment & Plan (1) Acute CVA (cerebrovascular accident): Plan: Assessment: 1. What appears to be a very significant acute cerebrovascular accident clinically probably the left MCA territory affecting the right side resulting in essential right-sided hemiplegia almost complete. Exam is as above. Dual antiplatelet therapy aspirin and Plavix. Neurology is consulted. MRI of the brain is ordered as is MRI of the cervical spine per neurology's request. Physical therapy. 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 2. Hypertension hold antihypertensives at this time while awaiting MRI results. 3. History of interstitial lung disease. Plan: As described above. Please refer to orders for further plan. History of Present Illness Chief Complaint: Right-sided hemiplegia Primary Care Provider: DO Мария Wooten 78-year-old gentleman who was discharged on October 08, 2023 with strokelike symptoms/TIA with some right-sided paresthesias. Patient was discharged on October 07 with home health. On Monday morning he was more weak on the right. This progressed throughout the day where he had essentially complete right-sided hemiplegia. He went to his family physician today who directed him to the ER. In the ER he had a negative CT of the head negative CTA of the head and neck. Neurology was consulted. Patient is already on dual antiplatelet therapy in the form of Plavix and aspirin. Neurology recommended MRI of the brain and MRI of the cervical spine which have been ordered and pending at the time of this dictation. Will make the patient to the stroke service protocol consult for speech physical and occupational therapy, await MRI results, continue dual antiplatelet therapy Allergies Allergy/AdvReac Type Severity Reaction Status Date / Time No Known Allergies Allergy Verified 10/10/23 11:32 Home Medications Medication Instructions Recorded Confirmed Type aspirin 81 mg tablet,delayed 81 mg PO QAM #30 tabs 03/14/21 10/10/23 Rx release losartan 50 mg tablet 50 mg PO BID #60 tabs 02/06/23 10/10/23 Rx Oxygen Home E0424 04/17/23 10/10/23 History Oxygen Home E0424 #1 ea 07/05/23 10/10/23 Rx metoprolol succinate 25 mg 25 mg PO DAILY #90 tabs 09/18/23 10/10/23 Rx tablet,extended release 24 hr amlodipine 5 mg tablet 5 mg PO DAILY #30 tabs 10/08/23 10/10/23 Rx atorvastatin 40 mg tablet 40 mg PO QAM #30 tabs 10/08/23 10/10/23 Rx clopidogrel 75 mg tablet 75 mg PO QAM #20 tabs 10/08/23 10/10/23 Rx Past Med/Surg History Medical History (Updated 10/10/23 @ 12:04 by Kenyon Nation, DO) TIA (transient ischemic attack) Stroke-like symptoms Hypersomnolence 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 History of Incidentally found on imaging in 2020("Old right basal ganglia infract per 2020 brain MRI) - PCP aware- started on ASA and statin Chronic sinusitis Hearing deficit Carpal tunnel syndrome, bilateral Hx of bladder cancer Hypertension Traction bronchiectasis Likely secondary to ILD Dyspnea on exertion Six minute walk test done- patient does not qualify for O2- encouraged weight loss per pulm records Mediastinal lymphadenopathy Multiple pulmonary nodules determined by computed tomography of lung Interstitial lung disease Idiopathic interstitial pneumonia per pulm records Reason for upcoming procedure Surgical History History of colonoscopy History of tooth extraction History of cystoscopy "cancer spot removed" History of nasal surgery History of total left hip replacement Family History Other No family history of adverse response to anesthesia Denies family history of Ovarian cancer Prostate cancer Myocardial infarction Breast cancer Colorectal cancer Social History Smoking Status: Never smoker Tobacco Type: Cigarettes Age Started Using Tobacco: 19; Age Quit Using Tobacco: 20; packs per day: 0; Second Hand Exposure: No; Do You Dip or Chew Tobacco: No; Hx Alcohol Use: No Hx Substance Use: No Preferred Language: Martiniquais Communication Ability: Effective Visual Impairment: No Limitations Hearing Ability: Normal Caretaker Required: No Beliefs That Will Affect Care: L[employer] Day L[employer] Day Beliefs: GINA marital status: Current Living Situation: Spouse Current Living Situation Comment: Lives with spouse current occupational status: retired Feels Safe at Home: Yes Diet: regular caffeine: No Dental Care, Regularly: No Physical Activity Frequency: Does not Exercise Seatbelt Use: always Sunscreen Use: No Assistive Devices: Cane, Denture - Upper, Denture - Lower, Glasses and Hearing Aid - Right Review of Systems Review of Systems: A 10 point review of system was obtained and unless otherwise stated here or in history of present illness are negative and noncontributory to chief complaint. Physical Exam Physical Exam: In General: In general is a 78-year-old gentleman accompanied by his is the daughter and his son-in-law at the time of my exam. He interacts appropriately pleasantly. He does have a stutter which she says is chronic and the family confirms. HEENT: Normocephalic atraumatic pupils are equal round and reactive to light bilaterally. No scleral icterus no conjunctival injection external auditory canals are patent septum is in the midline nose is without discharge oral mucosa is pink and moist without lesion. NECK: Supple no rigidity no lymphadenopathy no thyromegaly no carotid bruits no JVD no masses. HEART: Regular rate and rhythm I do not appreciate any ectopy or rub. No murmur. LUNGS: Clear to auscultation bilaterally and anteriorly with no evidence of adventitious sounds/wheezes rales or rhonchi. ABDOMEN: Soft nontender, no rebound, no peritoneal signs, positive bowel sounds, no appreciable organomegaly. EXTREMITIES: Essentially the patient has a flaccid right upper extremity he can twitch at the forearm mildly. Cannot move his hand or the elbow joint or at the shoulder joint. There is right lower extremity he can barely warehouse order picker against gravity approximately 2 inches off the bed but only hold for less than a second at a time so it drops. Neurovascularly extremities intact there is no loss of sensation to fine pinprick with the patient does have decree sensation in the right upper extremity compared to the left. NEUROLOGICAL: Cranial nerves II through XII are grossly intact with no focal deficit elicited upon examination. No tremor. Results & Data Results & Data Vital Signs (Past 12 Hours) Vital Signs Temp Pulse Pulse Resp BP Pulse Ox O2 Del Method 10/10/23 16:10 63 17 94 Room Air 10/10/23 16:10 67 17 94 Room Air 10/10/23 16:10 96 Room Air 10/10/23 12:36 36.7 C 75 20 133/75 95 Room Air Code Status & VTE Plan Code Status DO NOT RESUSCITATE/DO NOT INTUBATE I personally discussed with the patient. VTE Prophylaxis Plan VTE Prophylaxis will be ordered: Yes PG Care Time/CCT Total # of Minutes Spent Total Time Spent with Patient: Total time spent is greater than 50% in coordination of care (as documented) at patient's floor/unit and/or counseling patient: Coding Level of Care Code 66290 INT INP/OBS CARE 3/75MIN Diagnoses Acute CVA (cerebrovascular accident) I63.9
--- NOTE | 2023-10-10 17:19 | Electrocardiogram Report ---
Test Reason : Blood Pressure : / mmHG Vent. Rate : 071 BPM Atrial Rate : 071 BPM P-R Int : 242 ms QRS Dur : 066 ms QT Int : 360 ms P-R-T Axes : 028 -07 041 degrees QTc Int : 391 ms Sinus rhythm with 1st degree A-V block Minimal voltage criteria for LVH, may be normal variant Abnormal ECG Confirmed by Trenton Arnold ([id number]) on 10/10/2023 5:18:48 PM Referred By: Confirmed By:Woodrow Arnold
[2023-10-10] MEDS: ENOXAPARIN INJ 40 MG/0.4 ML SYR SQ SCH (17:38)
[2023-10-10 21:07] LABS: Troponin I High Sensitivity 4.9 pg/ml (0-20)
[2023-10-10] MEDS: ATORVASTATIN 40 MG TAB PO SCH (23:48)
[2023-10-11] MEDS: GADOBUTROL 65ML VIAL IV ONE (01:56)
--- NOTE | 2023-10-11 03:20 | Magnetic Resonance Report ---
Exam(s): MRI C SPINE IV Amt: 9.5cc gadavist EXAM: MR Cervical Spine With Intravenous Contrast CLINICAL HISTORY: Reason for exam: R hemipledgia. TECHNIQUE: Magnetic resonance images of the cervical spine with intravenous contrast in multiple planes. CONTRAST: Patient received 9.5cc gadavist of IV contrast COMPARISON: Comparison made to prior CT angiogram of the neck from October 10, 2023. FINDINGS: Vertebrae: There are 7 cervical type vertebral bodies with mild generalized curve to the left and normal cervical lordosis. There is normal vertebral artery height and alignment. The bone marrow signal is heterogeneous with reactive endplate changes. No acute fracture. Spinal cord: The cord is normal size, shape and signal characteristics. The craniocervical junction is normal without a loss of Chiari malformation. No abnormal enhancement. Soft tissues: The cervical flow voids are intact. DISCS/SPINAL CANAL/NEURAL FORAMINA: C2-C3: There is minimal disc degeneration with disc desiccation. There is mild bilateral facet arthropathy with mild synovitis. C3-C4: There is mild disc degeneration with annular disc bulging flattening the ventral thecal sac. There is mild facet arthropathy with mild synovitis. C4-C5: There is mild disc degeneration with annular disc bulging flattening the thecal sac. There is mild right and moderate left facet arthropathy with mild right and moderate left synovitis with bone marrow edema and inflammation of the surrounding soft tissues. C5-C6: Moderate disc degeneration with annular disc bulging flattening the ventral thecal sac and causing moderate spinal canal stenosis with AP diameter measuring 8.5 mm. There is uncovertebral joint arthropathy with disc extending to the neural foramina causing a moderately severe right and moderate left stenosis with impingement of the C6 nerve roots. There is minimal facet arthropathy with mild synovitis. C6-C7: There is mild disc degeneration with annular disc bulge flattening the ventral thecal, with uncovertebral joint arthropathy and this extends to the neural foramina causing a mild left stenosis without evidence of neural impingement. There is minimal facet arthropathy with mild synovitis. C7-T1: The intervertebral disc is normal. There is minimal to mild facet arthropathy with mild synovitis. IMPRESSION: 1. Moderate disc degeneration at C5-6 with mild disc degeneration at C3- 4, C4-5 and C6-7 with annular disc bulging flattening the ventral thecal sac. 2. There is moderate spinal canal stenosis at C5-6. 3. There is a moderately severe right and moderate left C5-6 and mild left C6-7 neural foraminal stenosis with impingement of bilateral C6 nerve roots. 4. There is mild to moderate facet arthropathy with mild to moderate synovitis, most significant at the left C4-5 facet joint. 5. No evidence of fracture, infection, tumor or myelopathy. Electronically signed by: Scarlet Ny MD 10/11/23 03:19 AM
--- NOTE | 2023-10-11 03:25 | Magnetic Resonance Report ---
Exam(s): MRI HEAD W/WO Contrast IV Amt: 9.5cc gadavist EXAM: MR Head Without and With Intravenous Contrast CLINICAL HISTORY: Reason for exam: cva. TECHNIQUE: Magnetic resonance images of the head/brain without and with intravenous contrast in multiple planes. CONTRAST: Patient received 9.5cc gadavist of IV contrast COMPARISON: Recently to prior brain MRI from October 08, 2023. FINDINGS: Brain: There is a tiny acute ischemic injury of the anterior left medulla. Remote ischemic injury of the right capsule. Moderate nonspecific white matter changes. No mass. No hemorrhage. The flow voids of the base the brain are intact. There is a tiny pineal cyst. There is normal enhancement of the brain parenchyma. The dural venous sinuses are patent. Ventricles: Unremarkable. No ventriculomegaly. Bones/joints: Unremarkable. No acute fracture. Sinuses: Chronic ethmoid sinusitis. No acute sinusitis. Mastoid air cells: Unremarkable as visualized. No mastoid effusion. Orbits: Unremarkable as visualized. IMPRESSION: There is a tiny acute ischemic injury of the left anterior medulla. Communications: Verify Receipt Electronically signed by: Scarlet Ny MD 10/11/23 03:24 AM
[2023-10-11 06:49] LABS: Basophils # (auto) 0.06 K/uL (0.00-0.20); Basophils % (auto) 0.7 %; Eosinophils # (auto) 0.28 K/uL (0.00-0.50); Eosinophils % (auto) 3.1 %; Hematocrit (blood only) 46.1 % (42.0-52.0); Hemoglobin 15.7 g/dl (14.0-18.0); Immature Granulocytes # (auto) 0.06 K/uL (0.01-0.20); Immature Granulocytes % (auto) 0.7 %; Lymphocytes # (auto) 2.03 K/uL (1.20-3.40); Lymphocytes % (auto) 22.6 %; Mean Corpuscular Hemoglobin 29.7 pg (25.0-34.0); Mean Corpuscular Hgb Conc 34.1 g/dL (32.0-36.0); Mean Corpuscular Volume 87.3 fL (80.0-100.0); Mean Platelet Volume 10.2 fL (9.4-12.4); Monocytes # (auto) 0.81 K/uL (0.11-0.59); Neutrophils # (auto) 5.73 K/uL (1.40-6.50); Neutrophils % (auto) 63.9 %; Platelet Count 176 K/uL (130-400); RDW Coefficient of Variation 13.1 % (11.5-14.5); RDW Standard Deviation 41.7 fL (36.4-46.3); Red Blood Count 5.28 M/uL (4.70-6.10); White Blood Count 8.97 K/ul (4.8-10.8)
[2023-10-11 07:24] LABS: Albumin Globulin Ratio 1.4 (0.9-2); Albumin Level 3.9 gm/dl (3.4-5.0); Bilirubin,Total 0.8 mg/dl (0.2-1.0); Calcium 8.6 mg/dl (8.6-10.3); Chol HDL Ratio 4.7 (0-5); Creatinine Clr Calc Pharmacy 88.5 ml/min; Est GFR (African American) 101.1 ml/min; Est GFR (Non-African American) 87.2 ml/min; Globulin 2.8 gm/dl (2.5-4.0); Potassium 4.3 mmol/L (3.5-5.1); Total Protein 6.7 gm/dl (6.0-8.3)
[2023-10-11 07:37] LABS: Thyroid Stimulating Hormone 1.519 uIu/ml (0.300-4.500)
[2023-10-11 08:03] LABS: Estimated Average Glucose 157 mg/dl; Hemoglobin A1C 7.1 % (4.5-5.6)
[2023-10-11] MEDS: ASPIRIN 81 MG ECTAB PO SCH (10:47)
[2023-10-11] MEDS: METOPROLOL SUCC 25MG EXT REL TAB PO SCH (10:48)
--- NOTE | 2023-10-11 12:05 | Neurology Consultation ---
Date of Consultation October 11, 2023 Assessment & Plan (1) Acute CVA (cerebrovascular accident): (2) 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: Plan 78-year-old male with severe right hemiplegia, arm and leg sparing the face, related to an acute left anterior medullary ischemic stroke. His symptoms actually began on October 06 but subsequently improved, he was admitted to the [facility] at that time and had an unremarkable evaluation, diagnosed with TIA and discharged on aspirin, Plavix, and atorvastatin. The Plavix and atorvastatin have been added to his medication regimen. Unfortunately, his symptoms returned and significantly escalated with follow-up imaging now revealing a definitive acute left anterior medullary ischemic stroke which would explain his symptoms. Continue management of hypertension per protocol, should continue with amlodipine and losartan. Consider increasing patient's dosage of atorvastatin, goal LDL 70 or less. Consider starting treatment for mild diabetes mellitus given his recent hemoglobin A1c of 7.1. Consider obtaining 30-day mobile cardiac outpatient telemetry. Unfortunately, this patient has a severe flaccid right hemiplegia as a result of his stroke. Although I expect some improvement in her recovery of function over time, recovery will likely be incomplete. He will need to work closely with PT/OT. Would continue with aspirin and clopidogrel, dual antiplatelet therapy for 3 weeks, after which discontinue aspirin and continue with clopidogrel 75 mg/day. History of Present Illness Reason for Consultation: stroke Requesting Physician: Eddie Attending Physician: David Morgan MD History of Present Illness The patient is a 78-year-old [place] male with a chief complaint of weakness of the right arm and leg. His symptoms actually began on October 06, was admitted to the [facility] at that time and had a fairly unremarkable imaging evaluation. Brain MRI revealed a chronic right basal ganglia infarct, atrophy and chronic microvascular ischemic disease. CTA of the head and neck were unremarkable. His symptoms had resolved and he was discharged on October 07 with a diagnosis of TIA. He presented again to the emergency department, however, on October 09 complaining of severe right-sided weakness, arm and leg, sparing the face. His escalating symptoms began a day or 2 after discharge. A repeat CTA of the head and neck were again unremarkable. A repeat brain MRI, however, reveals a small acute ischemic infarct involving the left anterior medulla. Upon re review of his previous brain MRI from October 08, 2023, there is a subtle area of restricted diffusion in this location as well. He also had a cervical spine MRI completed today which reveals multilevel degenerative disc disease with moderate central canal stenosis at C5-6 and varying degrees of neuroforaminal stenosis. Spinal cord signal normal. This morning, he continues to exhibit significant, flaccid weakness for the right arm and leg, sparing the face. He also complains of some subtle associated sensory disturbance affecting the right arm and leg as well. No headache, dysarthria, aphasia, no vision disturbance. Allergies Allergy/AdvReac Type Severity Reaction Status Date / Time No Known Allergies Allergy Verified 10/10/23 11:32 Home Medications Medication Instructions Recorded Confirmed Type aspirin 81 mg tablet,delayed 81 mg PO QAM #30 tabs 03/14/21 10/10/23 Rx release losartan 50 mg tablet 50 mg PO BID #60 tabs 02/06/23 10/10/23 Rx Oxygen Home E0424 04/17/23 10/10/23 History Oxygen Home E0424 #1 ea 07/05/23 10/10/23 Rx metoprolol succinate 25 mg 25 mg PO DAILY #90 tabs 09/18/23 10/10/23 Rx tablet,extended release 24 hr amlodipine 5 mg tablet 5 mg PO DAILY #30 tabs 10/08/23 10/10/23 Rx atorvastatin 40 mg tablet 40 mg PO QAM #30 tabs 10/08/23 10/10/23 Rx clopidogrel 75 mg tablet 75 mg PO QAM #20 tabs 10/08/23 10/10/23 Rx Patient History Medical History TIA (transient ischemic attack) Stroke-like symptoms Hypersomnolence 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 History of Incidentally found on imaging in 2020("Old right basal ganglia infract per 2020 brain MRI) - PCP aware- started on ASA and statin Chronic sinusitis Hearing deficit Carpal tunnel syndrome, bilateral Hx of bladder cancer Hypertension Traction bronchiectasis Likely secondary to ILD Dyspnea on exertion Six minute walk test done- patient does not qualify for O2- encouraged weight loss per pulm records Mediastinal lymphadenopathy Multiple pulmonary nodules determined by computed tomography of lung Interstitial lung disease Idiopathic interstitial pneumonia per pulm records Reason for upcoming procedure Surgical History History of colonoscopy History of tooth extraction History of cystoscopy "cancer spot removed" History of nasal surgery History of total left hip replacement Family History Other No family history of adverse response to anesthesia Denies family history of Ovarian cancer Prostate cancer Myocardial infarction Breast cancer Colorectal cancer Social History Smoking Status: Never smoker Tobacco Type: Cigarettes Age Started Using Tobacco: 19; Age Quit Using Tobacco: 20; packs per day: 0; Second Hand Exposure: No; Do You Dip or Chew Tobacco: No; Hx Alcohol Use: No Hx Substance Use: No Preferred Language: Nepalese Communication Ability: Effective Visual Impairment: No Limitations Hearing Ability: Normal Pt Escort Required: No Beliefs That Will Affect Care: None marital status: Current Living Situation: Family Current Living Situation Comment: Lives with spouse current occupational status: retired Feels Safe at Home: Yes Diet: regular caffeine: No Dental Care, Regularly: No Physical Activity Frequency: Does not Exercise Seatbelt Use: always Sunscreen Use: No Assistive Devices: Cane, Scooter/Electric Scooter and Walker Review of Systems Constitutional: no fever and no chills Eyes: no blind spots and no diplopia Ear, Nose, Mouth, Throat: no hearing loss Respiratory: + dyspnea on exertion Cardiovascular: + palpitations; no chest pain Gastrointestinal: no nausea and no vomiting Genitourinary: no urinary incontinence Musculoskeletal: no neck pain and no myalgia Integumentary: no rash and no lesions Neurologic: as per Subjective / HPI, + localized weakness and + paresthesia; no tremor(s), no headache(s), no abnormal speech and no memory loss Psychiatric: no depression and no anxiety Hematologic / Lymphatic: no easy bleeding and no easy bruising Exam (Neuro) Constitutional: well developed and well nourished; no acute distress Eyes: normal visual lehman by confrontation, PERRL and EOM intact bilaterally; no nystagmus Neurologic: Oriented to:: Person, Place and Time Memory: Short Term Intact and Remote Intact Attention: Span Intact and Concentration Intact Speech Fluency: negative Dysarthria or Dysfluency Speech Aphasia: negative Aphasia Fund of Knowledge: Current Events, Past History and Vocabulary Cranial Nerves: Normal II, III, IV, , V, VII, VIII, IX, X, XI and XII Motor Strength: Hemiplegia (Severe, arm and leg, 0 out of 5) Laterality: Right Flaccidity: Hemiflaccidity Laterality: Right Muscle Bulk/Involuntary Movements: No Involuntary Movements; negative Muscle Atrophy Sensation: Light Touch Intact, Pain/Temperature Intact, Proprioception Intact and Dysesthesia Coordination: Finger-Nose Abnormal Laterality: Right and Heel-Singleton Abnormal Laterality: Right Deep Tendon Reflexes: Rt Triceps: 2+, Lt Triceps: 2+, Rt Biceps: 2+, Lt Biceps: 2+, Rt Brachioradialis: 2+, Lt Brachioradialis: 2+, Rt Patellar: 2+, Lt Patellar: 2+, Rt Ankle: 1+ and Lt Ankle: 1+ Special Tests: Babinski Present (right) Details: Gait cannot be tested Results & Data Vital Signs (Past 12 Hours) Vital Signs Temp Pulse Pulse Resp BP Pulse Ox O2 Del Method 10/11/23 11:18 63 10/11/23 08:05 36.8 C 62 20 137/68 90 Room Air 10/11/23 04:19 36.8 C 74 17 125/73 95 Nasal Cannula 10/11/23 00:12 37.2 C 71 21 150/89 H 95 Nasal Cannula O2 Flow Rate 10/11/23 11:18 10/11/23 08:05 10/11/23 04:19 2 10/11/23 00:12 2 Laboratory Results WBC 8.97, hemoglobin 15.7, hematocrit 46.1, platelet count 176, sodium 138, potassium 4.3, BUN 18, creatinine 0.75, glucose 120, hemoglobin A1c 7.1, calcium 8.6, magnesium 2.0, AST 20, ALT 20, triglycerides 151, cholesterol 156, LDL 93, HDL 33 Diagnostic Findings Results of recent brain MRI and CTA of the head and neck are as described in the HPI, I independently reviewed these images. An electrocardiogram reveals sinus rhythm with first-degree AV block. An echocardiogram completed on October 08, 2023 was negative for cardioembolic source, there was mild concentric LVH, left atrium mildly dilated, no shunt with injection of contrast. Coding Level of Care Code 08625 INT INP/OBS CARE 3/75MIN Diagnoses Acute CVA (cerebrovascular accident) I63.9 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 I69.351 Time Spent (min) 80 Comment Total time includes patient contact, chart review, counseling, note preparation
[2023-10-11] MEDS: CLOPIDOGREL BISULFATE 75 MG TAB PO SCH (14:11)
[2023-10-12 07:20] LABS: Basophils # (auto) 0.05 K/uL (0.00-0.20); Basophils % (auto) 0.6 %; Eosinophils # (auto) 0.37 K/uL (0.00-0.50); Eosinophils % (auto) 4.5 %; Hematocrit (blood only) 48.6 % (42.0-52.0); Hemoglobin 16.2 g/dl (14.0-18.0); Immature Granulocytes # (auto) 0.04 K/uL (0.01-0.20); Immature Granulocytes % (auto) 0.5 %; Lymphocytes # (auto) 2.21 K/uL (1.20-3.40); Lymphocytes % (auto) 26.8 %; Mean Corpuscular Hemoglobin 29.2 pg (25.0-34.0); Mean Corpuscular Hgb Conc 33.3 g/dL (32.0-36.0); Mean Corpuscular Volume 87.7 fL (80.0-100.0); Mean Platelet Volume 10.4 fL (9.4-12.4); Monocytes # (auto) 0.74 K/uL (0.11-0.59); Neutrophils # (auto) 4.83 K/uL (1.40-6.50); Neutrophils % (auto) 58.6 %; Platelet Count 179 K/uL (130-400); RDW Coefficient of Variation 13.1 % (11.5-14.5); RDW Standard Deviation 42.1 fL (36.4-46.3); Red Blood Count 5.54 M/uL (4.70-6.10); White Blood Count 8.24 K/ul (4.8-10.8)
[2023-10-12 07:34] LABS: BUN Creatinine Ratio 27.5 (10-20); Calcium 8.9 mg/dl (8.6-10.3); Creatinine Clr Calc Pharmacy 83.8 ml/min; Est GFR (African American) 98.5 ml/min; Potassium 4.2 mmol/L (3.5-5.1)
--- NOTE | 2023-10-12 11:18 | Pharmacy Report ---
- Date of Service October 12, 2023 - Pharmacy CVA/TIA Medication Review Medications to Prevent Stroke handout has been added to the patients discharge packet. Antiplatelet(s) * Aspirin 81 mg qAM + Clopidogrel 75 mg qAM x3 weeks, then discontinue aspirin and continue clopidogrel 75 mg daily Cholesterol * High intensity statin: atorvastatin 40 mg daily- consider increase in dosage w/ goal LDL 70 or less DVT Prophylaxis * Enoxaparin SQ Therapeutic Anticoagulation * No history of Afib/Aflutter noted Type 2 Diabetes * Patient has T2DM, A1c 7.1%- should consider initiation of antidiabetic medications. A diabetes medication with proven CVD benefit may be deferred to their outpatient provider due to familiarity with risks/benefits of such therapies. "Medications to prevent stroke" handout has already been added to the patient's discharge packet, which instructs the patient to follow up with their outpatient provider to evaluate which diabetes medication with proven CVD benefit is best for them
--- NOTE | 2023-10-12 13:32 | Hospitalist Progress Note ---
Date of Service October 11, 2023 Assessment & Plan (1) Acute CVA (cerebrovascular accident): Plan: Ischemic left medulla CVA with resultant right hemiparesis. He is now on aspirin Plavix and a atorvastatin. Appreciate neurology consultation and recommendations. C-spine MRI on admission reveals evidence of moderate stenosis at the C5-C6 level with associated foraminal stenosis. No intervention at this time. (2) Benign essential hypertension: Plan: Treated with metoprolol while hospitalized. Amlodipine and losartan held temporarily (3) Type 2 diabetes mellitus: Plan: ADA diet. Sliding scale coverage as needed Plan Anticipate eventual discharge to [facility] for inpatient rehabilitation Admission and Anticipated Discharge Date Admission Date: October 10, 2023 Subjective This progress note should be applied to October 11, 2023. The patient is alert and oriented. I discussed the case with neurology, Dr. Markham. It appears he has suffered an ischemic left medullary CVA with resultant right hemiparesis, more dense in the right upper extremity. Cervical spine MRI scan reveals moderate stenosis at the C5-C6 level with associated foraminal stenosis. No intervention for that at this time. He is on aspirin, Plavix, statin therapy. Review of Systems 2 Review of Systems: Constitutional-no fever or chills ENT-no blurred vision, no double vision, no epistaxis, no sore throat Respiratory-no cough, no wheezing, no shortness of breath Cardiac-no palpitations, no chest pain, no syncope GI-no nausea, vomiting, diarrhea, melena, hematochezia -no urinary retention, no urinary incontinence, no dysuria, no hematuria Musculoskeletal-no joint pain, no muscle tenderness Skin-no bruising, no rashes, no pruritus Neuro-he cannot move his right arm or right hand and the right lower extremity is very weak Psych-no depression, no anxiety Physical Exam 2 Physical Exam: General-alert and oriented x3, no fever, no chills HEENT-head atraumatic and normocephalic, pupils equal and reactive to light, extraocular muscles intact Neck-no lymphadenopathy or thyromegaly, trachea midline Chest-clear to auscultation. No rales, wheezing or rhonchi Cardiac-regular rate and rhythm, normal S1 and S2 Abdomen-normal bowel sounds, nontender, no hepatosplenomegaly Extremities-no cyanosis, clubbing, or edema Neuro-cranial nerves II through XII intact, right hemiparesis more dense in the right upper extremity with inability to move the right arm or right hand. Right lower extremity is very weak. Psych -normal affect, normal mood Results & Data Results & Data Vital Signs (Past 12 Hours) Vital Signs Temp Pulse Pulse Resp BP Pulse Ox O2 Del Method 10/12/23 11:11 37.0 C 74 17 163/78 H 93 Room Air 10/12/23 08:07 Room Air 10/12/23 07:18 36.6 C 64 20 145/79 H 92 Room Air 10/12/23 07:00 67 10/12/23 03:59 37.0 C 67 20 153/80 H 89 L Room Air Laboratory Results 10/12/23 06:54 10/12/23 06:54 PG Care Time/CCT Total # of Minutes Spent Total Time Spent with Patient: Total time spent is greater than 50% in coordination of care (as documented) at patient's floor/unit and/or counseling patient: Coding Level of Care Code 02219 SUB INP/OBS CARE 3/50MIN Diagnoses Acute CVA (cerebrovascular accident) I63.9 Benign essential hypertension I10 Type 2 diabetes mellitus E11.9
[2023-10-12] MEDS ORDERED: STROKE PATIENT DISCHARGE STA (13:34)
--- NOTE | 2023-10-12 13:34 | Discharge Summary ---
Date of Service October 12, 2023 Admission HPI Per Admitting Provider Pleasant 78-year-old gentleman who was discharged on October 08, 2023 with strokelike symptoms/TIA with some right-sided paresthesias. Patient was discharged on October 07 with home health. On Monday morning he was more weak on the right. This progressed throughout the day where he had essentially complete right-sided hemiplegia. He went to his family physician today who directed him to the ER. In the ER he had a negative CT of the head negative CTA of the head and neck. Neurology was consulted. Patient is already on dual antiplatelet therapy in the form of Plavix and aspirin. Neurology recommended M RI of the brain and MRI of the cervical spine which have been ordered and pending at the time of this dictation. Will make the patient to the stroke service protocol consult for speech physical and occupational therapy, await MRI results, continue dual antiplatelet therapy Principal Diagnosis Ischemic left medulla CVA with resultant right hemiparesis Discharge Exam General-alert and oriented x3, no fever, no chills HEENT-head atraumatic and normocephalic, pupils equal and reactive to light, ext raocular muscles intact Neck-no lymphadenopathy or thyromegaly, trachea midline Chest-clear to auscultation. No rales, wheezing or rhonchi Cardiac-regular rate and rhythm, normal S1 and S2 Abdomen-normal bowel sounds, nontender, no hepatosplenomegaly Extremities-no cyanosis, clubbing, or edema Neuro-cranial nerves II through XII intact, right hemiparesis more dense in the right upper extremity with inability to move the right arm or right hand. Right lower extremity is very weak. Psych -normal affect, normal mood Discharge Data Allergies Allergy/AdvReac Type Severity Reaction Status Date / Time No Known Allergies Allergy Verified 10/10/23 11:32 Consultations 10/10/23 15:15 ED Decision to Admit Stat 10/11/23 11:07 Consult Neurology Routine Ordered Studies 10/10/23 12:41 CT head/brain wo con Stat 10/10/23 15:15 CT angio head w con Stat CT angio neck with con Stat 10/11/23 00:37 MR cervical spine wo/w con Stat 10/11/23 00:38 MR brain wo/w con Routine Diabetes Follow up Diabetes Follow-up Needed for Newly Diagnosed Diabetes Hospital Course (1) Acute CVA (cerebrovascular accident): Ischemic left medulla CVA with resultant right hemiparesis. He is now on aspirin Plavix and a atorvastatin. Appreciate neurology consultation and recommendations. C-spine MRI on admission reveals evidence of moderate stenosis at the C5-C6 level with associated foraminal stenosis. No intervention at this time. (2) Benign essential hypertension: Treated with metoprolol while hospitalized. Amlodipine and losartan held temporarily. These will be restarted at discharge (3) Type 2 diabetes mellitus: ADA diet. Sliding scale coverage as needed. Glucose 129 October 11 Plan Discharge to [facility] October 11 Total Time Total Time Spent Total Time Spent (In Minutes): 45 minutes Discharge Plan Discharge Items Patient Disposition: Transfer Inpatient Rehab Fac Reason For Visit: CVA Discharge Diagnosis: Ischemic left medulla CVA with right hemiparesis Activity: Resume your previous activity Non-emergency contact: Primary Care Provider Call non-emergency contact if: your symptoms worsen Follow-up/Referrals: Kenyon Nation DO [Primary Care Provider] - Diet: Carb Consistent or DM2 and Heart Healthy Addtl Attending Provider Instructions: See primary care provider soon as possible after discharge from [facility] Stand-Alone Forms: My [facility], Medications to Prevent Stroke Skilled Items Patient informed of condition?: Yes DNR: No Discharge Level of Care: Acute rehab Communicable Disease: No Discharge Prognosis: Stable Lines: None Urinary Catheter: No Medications and DC Order Prescriptions: Continued (DME) Oxygen Home E0424 Liters Per Minute See Rx Instructions .Route Qty: 1 0RF Rx Instructions: Medical Oxygen at 2lpm via NC all the time LON99 losartan 50 mg tablet 50 mg PO BID Qty: 60 11RF (DME) Oxygen Home E0424 Liters Per Minute See Rx Instructions .ROUTE .MEDSUPPLY Rx Instructions: Home oxygen concentrator with portability. O2 at 2 L/min via nasal cannula at all times. DAYAN 89 yrs PT reports 04/17/2023 that it is at night only. metoprolol succinate 25 mg tablet extended release 24 hr 25 mg PO DAILY Qty: 90 3RF aspirin 81 mg Tablet,Delayed Release (Dr/Ec) 81 mg PO QAM Qty: 30 0RF atorvastatin 40 mg Tablet 40 mg PO QAM Qty: 30 0RF clopidogrel 75 mg Tablet 75 mg PO QAM Qty: 20 0RF amlodipine 5 mg tablet 5 mg PO DAILY Qty: 30 0RF Discharge Orders: Discharge Order (Routine); Ordered 10/12/23 Ordered By: David Morgan Admission Data Admit Date/Time: 10/10/23 16:56 Attending Provider: David Morgan Admit Provider: Viktor Martino Primary Care Provider: Kenyon Nation Other Providers: Viktor Martino; Yoandy Markham; [facility] Coding Level of Care Code 34589 INP/OBS DISCH >30 MIN Diagnoses Acute CVA (cerebrovascular accident) I63.9 Benign essential hypertension I10 Type 2 diabetes mellitus E11.9
== END 2023-10-12 16:35 | DRG 65 ==
LOC: ED 12:32 → SUATTDRO 16:56 → EDINP 16:56 → 2E 19:50

== ENCOUNTER 2024-03-12 13:22 | Observation (INO) ==
[2024-03-12] MEDS: OPTIRAY 320 125ml IV ONE (13:34)
--- NOTE | 2024-03-12 13:40 | Emergency Department Note ---
Impression & Plan Left-sided weakness, Cough ED Provider Note NAME: JOSELUIS RODRIGUEZ AGE: 78 SEX: M : 1945 ARRIVES VIA: Ambulance INFORMANT: Patient, ED PROVIDER(S): Glenn Winslow MD CHIEF COMPLAINT: Left lower extremity weakness MEDICAL DECISION MAKING: Patient presented due to concern for left-sided weakness which is new for the patient. Last known well outside of the window for any TNK. Stroke alert was initiated to help facilitate CAT scans. IV was established along with a CAT scans. Patient also had complaint of some cough and fever. Chest x-ray also obtained along with a BioFire. Patient's blood work showed a white count of 13 with a hemoglobin of 13.5. The patient's platelet count was unremarkable. Kidney function unremarkable. Procalcitonin is negative. Bio fire positive for enterorhinovirus. Patient CT head CT angiography of the head and neck are negative for anything acute but the patient does have foci of stenosis involving both vertebral arteries at the skull base. Patient also with moderate to severe stenosis of the distal right intracranial vertebral artery which is similar to prior. Chest x-ray does not show obvious pneumonia. Patient was ordered IV fluids and IV Tylenol. I did speak with the on-call hospital service Dr. Crane and the patient was admitted to the medicine service. Discussion w/ other healthcare providers: Dr. Crane inpatient medicine service Prior /Outside records reviewed: None Differential diagnosis: Infection, dehydration, metabolic abnormality, hypo/hyperglycemia, electrolyte imbalance, anemia, UTI, pneumonia, thyroid dysfunction among others were considered. Diagnostics, as interpreted by me: ECG: None Cardiac monitoring: An order was placed for continuous cardiac monitoring. The monitor shows a rate of 75 with sinus rhythm. Patient was placed on pulse oximetry Medical decision rules: None Imaging studies: I informally interpreted the patient's CTA does not show obvious ICH with formal report to follow. HPI: Patient presents via EMS due to concern for strokelike symptoms. The patient developed worsening left lower extremity weakness beginning yesterday around 3 PM. The patient states that he was still able to get up and ambulate with some assistance but today was unable to do so at all. He was referred here after being seen at [facility]. Patient does have a prior history of stroke most recently about 5 months ago and is currently on Plavix. The patient did have weakness of the right side which is slowly improving. Patient denies any numbness or tingling. No change in his right-sided weakness. No slurred speech or facial droop. Patient also reports that he thought he had a fever 100.8 did take a dose of amoxicillin 500 mg this morning that was leftover from a prior infection was concerned about possible pneumonia as he has had a cough. Former history of smoking many many years ago when he was younger. PAST MEDICAL HISTORY: See Below PAST SURGICAL HISTORY: See Below SOCIAL HISTORY: See Below HOME MEDICATIONS: See Below ALLERGIES: See Below VITALS: See Below PHYSICAL EXAMINATION: GENERAL: NAD, non-toxic. EYE EXAM: Normal conjunctiva. Arcus senilis noted. PERRL, no anisocoria and EOM's grossly intact w/o pain. OROPHARYNX: Moist mucus membranes, grossly normal dentition. NECK: Trachea midline, no stridor. LUNGS: Clear to auscultation. Normal chest wall mechanics. HEART: NSR, no MRG. ABDOMEN: Abdomen soft, non-tender, no masses, no rebound or guarding. BACK: No CVA TTP. SKIN: No rashes and no bruising. UPPER EXTREMITIES: Upper extremities are grossly normal. LOWER EXTREMITIES: Grossly normal, no edema. NEURO EXAM: A&O x3, cranial nerves II-XII grossly intact, normal speech, moves all 4 extremities but 2 out of 5 strength of the right lower extremity and 4 out of 5 strength of the right upper extremity. Left upper extremity 5 out of 5 strength with left lower extremity 3 out of 5 strength with drift. Good [id number] of the left upper extremity. No sensory deficits to the face arms or legs. 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 Acute right-sided weakness (Acute) Acute CVA (cerebrovascular accident) Benign essential hypertension Cardiomegaly Hx of bladder cancer Neuropathy of right hand Shingles Lung nodule Facial droop (Acute) Orbital cellulitis on left (Acute) Cough (Acute) Rib pain on left side Loss of consciousness Sleep disturbance Tachycardia Chest pain Shortness of breath on exertion Carpal tunnel syndrome, bilateral Arthritis of left hip Hypersomnolence Interstitial lung disease Idiopathic interstitial pneumonia per pulm records Reason for upcoming procedure Traction bronchiectasis Likely secondary to ILD Dyspnea on exertion Six minute walk test done- patient does not qualify for O2- encouraged weight loss per pulm records Mediastinal lymphadenopathy Multiple pulmonary nodules determined by computed tomography of lung Medical History Cryptococcal pneumonitis Encounter for pre-operative examination TIA (transient ischemic attack) Infarction of left basal ganglia History of Incidentally found on imaging in 2020("Old right basal ganglia infract per 2020 brain MRI) - PCP aware- started on ASA and statin Chronic sinusitis Hearing deficit Carpal tunnel syndrome, bilateral Surgical History History of colonoscopy History of tooth extraction History of cystoscopy "cancer spot removed" History of nasal surgery History of total left hip replacement Family History Other No family history of adverse response to anesthesia Denies family history of Ovarian cancer Prostate cancer Myocardial infarction Breast cancer Colorectal cancer Social History Smoking Status: Never smoker Tobacco Type: Cigarettes Age Started Using Tobacco: 19; Age Quit Using Tobacco: 20; packs per day: 0; Second Hand Exposure: No; Do You Dip or Chew Tobacco: No; Hx Alcohol Use: No Hx Substance Use: No Preferred Language: Portuguese Communication Ability: Effective Visual Impairment: No Limitations Hearing Ability: Normal Rn Case Manager Required: No Beliefs That Will Affect Care: None marital status: Current Living Situation: Family Current Living Situation Comment: Lives with spouse current occupational status: retired How many Children do You have: 8 Feels Safe at Home: Yes Childhood Exposure to Second-Hand Smoke: No Diet: regular caffeine: No Dental Care, Regularly: No Physical Activity Frequency: Does not Exercise Seatbelt Use: always Sunscreen Use: No Assistive Devices: Cane, Scooter/Electric Scooter, Walker and Wheelchair Allergies Allergies Allergy/AdvReac Type Severity Reaction Status Date / Time No Known Drug Allergies Allergy Mild Verified 03/12/24 11:55 Home Meds Home Medications Medication Instructions Recorded Confirmed Oxygen Home 04/17/23 03/12/24 losartan 100 mg tablet 100 mg PO UD 12/22/23 03/12/24 metoprolol tartrate 50 mg tablet 25 mg PO DAILY 01/30/24 03/12/24 (Lopressor) losartan 50 mg tablet 50 mg PO BID 03/12/24 03/12/24 Previous Rx's Medication Instructions Recorded Oxygen Home #1 ea 07/05/23 amlodipine 5 mg tablet 5 mg PO DAILY #100 tabs 11/08/23 atorvastatin 40 mg tablet 40 mg PO QAM #100 tabs 11/08/23 clopidogrel 75 mg tablet 75 mg PO QAM #100 tabs 11/08/23 metformin 500 mg tablet 500 mg PO BID #100 tabs 02/02/24 Results & Data (ED) Vital Signs Vital Signs - 24 hr 03/12/24 13:16 03/12/24 13:26 03/12/24 13:29 Temperature 37.4 C Temperature Source Oral Pulse Rate 107 H 108 H Respiratory Rate 21 Blood Pressure 156/85 H Blood Pressure Mean 108 Pulse Oximetry 92 2 L Oxygen Delivery Method Room Air Room Air Oxygen Flow Rate 0 Sepsis Recent Fever Within 48 Hours No Sepsis New/Unexplained Change in Mental Status N/A Sepsis Action Taken by Nursing Physician Notified Home Medications Current Medication List: was personally reviewed by me Laboratory Data Attestation: I reviewed the patient's lab results. 03/13/24 06:15 03/13/24 06:15 Lab Results 03/12/24 03/12/24 03/12/24 Range/Units 13:26 13:27 13:30 WBC 13.03 H (4.8-10.8) K/ul RBC 4.44 L (4.70-6.10) M/uL Hgb 13.5 L (14.0-18.0) g/dl POC Hgb 13.3 L (14.0-18.0) g/dl Hct 40.1 L (42.0-52.0) % POC Hct 39 L (42-52) % MCV 90.3 (80.0-100.0) fL MCH 30.4 (25.0-34.0) pg MCHC 33.7 (32.0-36.0) g/dL RDW Std Deviation 43.8 (36.4-46.3) fL RDW Coeff of Rakel 13.3 (11.5-14.5) % Plt Count 191 (130-400) K/uL MPV 10.4 (9.4-12.4) fL Immature Gran % (Auto) 0.8 % Neut % (Auto) 78.7 % Lymph % (Auto) 12.5 % Kent % (Auto) 7.1 % Eos % (Auto) 0.6 % Baso % (Auto) 0.3 % Neut # (Auto) 10.26 H (1.40-6.50) K/uL Lymph # (Auto) 1.63 (1.20-3.40) K/uL Kent # (Auto) 0.92 H (0.11-0.59) K/uL Eos # (Auto) 0.08 (0.00-0.50) K/uL Baso # (Auto) 0.04 (0.00-0.20) K/uL Immature Gran # (Auto) 0.10 (0.01-0.20) K/uL PT 11.1 (9.0-12.0) Seconds INR 1.0 (0.9-1.1) APTT 27 (21-31) Seconds PTT Ratio 1.0 POC Sodium 137 (135-144) mmol/L Sodium 137 (136-145) mmol/L POC Potassium 4.3 (3.3-5.0) mmol/L Potassium 4.3 (3.5-5.1) mmol/L POC Chloride 101 (101-112) mmol/L Chloride 101 (98-107) mmol/L Carbon Dioxide 29 (21-32) mmol/L POC Total CO2 25 (24-31) mmol/L Anion Gap 7 (3-11) POC Anion Gap 16.0 (16-25) mmol/L POC BUN 13 (7-18) mg/dl BUN 14 (6-23) mg/dl Creatinine 0.96 (0.6-1.4) mg/dl POC Creatinine 1.0 (0.6-1.3) mg/dl Est Cr Clr Drug Dosing 66.5 ml/min Est GFR ( Amer) 86.8 ml/min Est GFR (Non-Af Amer) 74.9 ml/min BUN/Creatinine Ratio 14.6 (10-20) Glucose 129 H (70-99(Fasting)) mg/dl POC Glucose 127 H (70-99) mg/dl POC Glucose (other) 128 H (70-99) mg/dl Calcium 9.2 (8.6-10.3) mg/dl POC Ioniz Calcium Jabier 1.11 L (1.12-1.32) mmol/l Magnesium 1.8 (1.7-2.4) mg/dl Total Bilirubin 0.8 (0.2-1.0) mg/dl AST 17 (13-39) U/L ALT 17 (7-52) U/L Alkaline Phosphatase 68 (34-104) U/L Troponin I High Sens 6.9 (0-20) pg/ml Total Protein 7.0 (6.0-8.3) gm/dl Albumin 4.2 (3.4-5.0) gm/dl Globulin 2.8 (2.5-4.0) gm/dl Albumin/Globulin Ratio 1.5 (0.9-2) Procalcitonin < 0.02 (0-0.5) ng/ml Adenovirus (PCR) (NotDetected) B. pertussis DNA (PCR) (NotDetected) B.parapertussis DNA PCR (NotDetected) C. pneumoniae DNA (PCR) (NotDetected) Coronavirus OC43 (PCR) (NotDetected) Coronavirus HKU1 (PCR) (NotDetected) Coronavirus 229E (PCR) (NotDetected) SARS-CoV-2 (PCR) (NotDetected) Coronavirus NL63 (PCR) (NotDetected) Human Metapneumovir PCR (NotDetected) Influenza Type A (PCR) (NotDetected) Influenza Type B (PCR) (NotDetected) M. pneumoniae (PCR) (NotDetected) Parainfluenza 1 (PCR) (NotDetected) Parainfluenza 2 (PCR) (NotDetected) Parainfluenza 3 (PCR) (NotDetected) Parainfluenza 4 (PCR) (NotDetected) RSV (PCR) (NotDetected) Entero/Rhino (PCR) (NotDetected) 03/12/24 Range/Units 13:51 WBC (4.8-10.8) K/ul RBC (4.70-6.10) M/uL Hgb (14.0-18.0) g/dl POC Hgb (14.0-18.0) g/dl Hct (42.0-52.0) % POC Hct (42-52) % MCV (80.0-100.0) fL MCH (25.0-34.0) pg MCHC (32.0-36.0) g/dL RDW Std Deviation (36.4-46.3) fL RDW Coeff of Rakel (11.5-14.5) % Plt Count (130-400) K/uL MPV (9.4-12.4) fL Immature Gran % (Auto) % Neut % (Auto) % Lymph % (Auto) % Kent % (Auto) % Eos % (Auto) % Baso % (Auto) % Neut # (Auto) (1.40-6.50) K/uL Lymph # (Auto) (1.20-3.40) K/uL Kent # (Auto) (0.11-0.59) K/uL Eos # (Auto) (0.00-0.50) K/uL Baso # (Auto) (0.00-0.20) K/uL Immature Gran # (Auto) (0.01-0.20) K/uL PT (9.0-12.0) Seconds INR (0.9-1.1) APTT (21-31) Seconds PTT Ratio POC Sodium (135-144) mmol/L Sodium (136-145) mmol/L POC Potassium (3.3-5.0) mmol/L Potassium (3.5-5.1) mmol/L POC Chloride (101-112) mmol/L Chloride (98-107) mmol/L Carbon Dioxide (21-32) mmol/L POC Total CO2 (24-31) mmol/L Anion Gap (3-11) POC Anion Gap (16-25) mmol/L POC BUN (7-18) mg/dl BUN (6-23) mg/dl Creatinine (0.6-1.4) mg/dl POC Creatinine (0.6-1.3) mg/dl Est Cr Clr Drug Dosing ml/min Est GFR ( Amer) ml/min Est GFR (Non-Af Amer) ml/min BUN/Creatinine Ratio (10-20) Glucose (70-99(Fasting)) mg/dl POC Glucose (70-99) mg/dl POC Glucose (other) (70-99) mg/dl Calcium (8.6-10.3) mg/dl POC Ioniz Calcium Jabier (1.12-1.32) mmol/l Magnesium (1.7-2.4) mg/dl Total Bilirubin (0.2-1.0) mg/dl AST (13-39) U/L ALT (7-52) U/L Alkaline Phosphatase (34-104) U/L Troponin I High Sens (0-20) pg/ml Total Protein (6.0-8.3) gm/dl Albumin (3.4-5.0) gm/dl Globulin (2.5-4.0) gm/dl Albumin/Globulin Ratio (0.9-2) Procalcitonin (0-0.5) ng/ml Adenovirus (PCR) Not Detected (NotDetected) B. pertussis DNA (PCR) Not Detected (NotDetected) B.parapertussis DNA PCR Not Detected (NotDetected) C. pneumoniae DNA (PCR) Not Detected (NotDetected) Coronavirus OC43 (PCR) Not Detected (NotDetected) Coronavirus HKU1 (PCR) Not Detected (NotDetected) Coronavirus 229E (PCR) Not Detected (NotDetected) SARS-CoV-2 (PCR) Not Detected (NotDetected) Coronavirus NL63 (PCR) Not Detected (NotDetected) Human Metapneumovir PCR Not Detected (NotDetected) Influenza Type A (PCR) Not Detected (NotDetected) Influenza Type B (PCR) Not Detected (NotDetected) M. pneumoniae (PCR) Not Detected (NotDetected) Parainfluenza 1 (PCR) Not Detected (NotDetected) Parainfluenza 2 (PCR) Not Detected (NotDetected) Parainfluenza 3 (PCR) Not Detected (NotDetected) Parainfluenza 4 (PCR) Not Detected (NotDetected) RSV (PCR) Not Detected (NotDetected) Entero/Rhino (PCR) DETECTED A (NotDetected) Administered Medications Discontinued Medications Gadobutrol (Gadobutrol 65ml Vial) 8.5 ml IV ONCE ONE Stop: 03/12/24 18:33 Last Admin: 03/12/24 18:32 Dose: 8.5 ml Documented By: BIB Sodium Chloride (Nss) 500 mls @ 999 mls/hr IV .Q31M ONE Stop: 03/12/24 15:46 Last Infusion: 03/12/24 16:16 Dose: Infused Documented By: Admin: 03/12/24 15:26 Dose: 999 mls/hr Documented By: SETH Acetaminophen (Ofirmev) 1,000 mg in 100 mls @ 400 mls/hr IV NOW STA Stop: 03/12/24 15:30 Last Infusion: 03/12/24 16:16 Dose: Infused Documented By: Admin: 03/12/24 15:26 Dose: 400 mls/hr Documented By: SETH Insulin Aspart (Insulin Aspart Per Unit Charge) 0 units SC ACHS CARO Stop: 04/11/24 17:21 Last Admin: 03/13/24 11:16 Dose: Not Given Documented By: Admin: 03/13/24 09:37 Dose: Not Given Documented By: Admin: 03/12/24 21:06 Dose: Not Given Documented By: Admin: 03/12/24 19:06 Dose: Not Given Documented By: UYEN Ioversol (Optiray 320 125ml) 112 ml IV ONCE ONE Stop: 03/12/24 13:35 Last Admin: 03/12/24 13:34 Dose: 112 ml Documented By: GINNY Imaging Data Radiologist's Impression: Head CT 03/12/24 13:18 CT head/brain wo con CLINICAL HISTORY: neuro deficit, acute stroke suspected Technique: Contiguous axial CT images of the head were acquired from the base of the skull to the vertex without intravenous contrast administration. Images were viewed in brain, subdural and bone windows. Automated dose lowering techniques and/or adjustment according to patient size were utilized for this exam. Comparison: Comparison is made to MRI brain 10/11/2023 Findings: Areas of decreased attenuation are present in the periventricular and subcortical white matter bilaterally consistent with small vessel ischemic disease. Generalized cerebral atrophy with commensurate enlargement of the ventricles, sulci, and cisterns is also present. There is no acute intracranial hemorrhage or evidence of acute territorial infarction. No shift of the midline structures, mass effect, or extra-axial abnormalities are shown. Atherosclerotic calcifications are present in the intracranial segments of the internal carotid arteries. Focal encephalomalacia in the right periventricular white matter is unchanged compatible with chronic infarct. Imaged portions of the paranasal sinuses and mastoid air cells are clear. The orbits appear normal. There are no acute fractures of the calvaria or scalp swelling. Impression: No acute intracranial hemorrhage, no evidence of acute territorial infarction or other acute intracranial disease process. ACT 112: Negative or not required by law. Electronically signed by: Valentin Monsivais M.D. 03/12/2024 1:53 PM Head CTA 03/12/24 13:18 CT ANGIOGRAM OF THE BRAIN CLINICAL HISTORY: Neurological deficit. Stroke like symptoms. COMPARISON STUDY: Unenhanced CT of the brain performed concurrently on 03/12/2024. CT angiogram of the brain dated 10/10/2023. TECHNIQUE: Following the IV administration of 112 cc of Optiray 320, CT angiogram of the brain was performed from the skull base to the vertex. Images are reviewed in the axial, sagittal, and coronal planes. 3-D MIPS images are created and assessed. IV contrast was administered without complication. A dose lowering technique was utilized adhering to the principles of ALARA. FINDINGS: Brain parenchyma: There is age-related involutional change noting moderate subcortical and periventricular microangiopathic disease. There is no evidence of hemorrhage, mass effect, or evidence of acute territorial ischemia noting angiographic phase technique. A chronic lacunar infarct is noted in the right basal ganglia. There is no evidence of enhancing mass lesion on the angiogram phase images. No extra-axial fluid collection is seen. Hameed-white matter differentiation is preserved. Ventricles, sulci, and cisterns: Prominent secondary to involutional change. Intracranial vasculature: There is atherosclerotic calcification of the cavernous carotid arteries. The internal carotid arteries are patent at the skull base, as are the anterior and middle cerebral arteries bilaterally. The vertebrobasilar system and posterior cerebral arteries are patent. There is mild right-sided dominance. Atherosclerotic plaque and irregularity seen involving the right vertebral artery at the skull base. This causes moderate focal stenosis as seen on axial image #49. There is mild to moderate focal stenosis of the distal left vertebral artery seen below the basilar on image #62. There is a right posterior communicating artery. No aneurysm or focal vessel cut off is seen throughout the intracranial circulation. Dural sinuses: Clear as visualized. Orbits: The bony orbits are intact. The orbital contents are normal as visualized. Sinuses and mastoids: The visualized paranasal sinuses are clear. The mastoid air cells are well pneumatized. Soft tissues: Calcified cellulitis are noted in the right parotid gland. Calvarium: Unremarkable. IMPRESSION: 1. There is no evidence of hemorrhage, mass effect, or evidence of acute territorial ischemia noting angiographic phase technique. 2. There are foci of stenosis seen involving both vertebral arteries at the skull base. 3. The remaining intracranial vessels are patent. ACT 112: Negative or not required by law. Electronically signed by: Aime Garzon M.D. 03/12/2024 2:22 PM Neck CTA 03/12/24 13:18 CT ANGIOGRAM OF THE NECK CLINICAL HISTORY: neuro deficit. COMPARISON STUDY: \\CT angiogram of the head and neck dated 10/10/2023. TECHNIQUE: Following the IV administration of 116 of Optiray 320, CT angiogram of the neck was performed from the aortic arch to the skull base. Images are reviewed in the axial, sagittal, and coronal planes. 3-D MIPS images are created and assessed. IV contrast was administered without complication. All measurements were calculated based on NASCET criteria. A dose lowering technique was utilized adhering to the principles of ALARA. CT DOSE: 1292.35 mGy.cm FINDINGS: Thoracic aorta: There is atherosclerotic calcification of the thoracic aorta. Visualized portions of the thoracic aorta are normal in caliber. The aortic arch demonstrates 4-vessel variant anatomy. The left vertebral artery arises directly from the thoracic aorta. Right carotid arterial system: The right common carotid artery is widely patent, as are the right internal and external carotid arteries. Mild calcified plaque is noted in the carotid bulb. Left carotid arterial system: The left common carotid artery is widely patent, as are the left internal and external carotid arteries. Vertebral arteries: Moderate to severe stenosis within the distal right intracranial vertebral artery which is similar to the prior study. The bilateral cervical vertebral arteries are patent. Subclavian arteries: Widely patent bilaterally. Jugular veins: Patent bilaterally. Lung apices: Stable 6mm left apical nodule. Soft tissues: The visualized pharyngeal soft tissues are normal in appearance noting angiographic phase technique. The oropharyngeal airway appears widely patent. Calcified sialoliths are noted in the parotid glands. The salivary glands are otherwise normal in appearance. The thyroid gland is within normal limits. No cervical lymphadenopathy is seen. Skeletal structures: The skeletal structures are osteopenic. The cervical spine is maintained noting multilevel spondylosis. IMPRESSION: 1. Moderate to severe stenosis within the distal right intracranial vertebral artery which is similar to the prior study. 2. No stenosis or occlusion within the bilateral carotid arteries. ACT 112: Negative or not required by law. Electronically signed by: Ga Wu M.D. 03/12/2024 2:33 PM Chest X-Ray 03/12/24 13:32 SINGLE VIEW CHEST CLINICAL HISTORY: Cough and fever FINDINGS: An AP, portable, upright chest radiograph is compared to study dated 12/22/2023 and correlated with chest CT dated 06/26/2023. The heart is enlarged noting atherosclerotic calcification of the thoracic aorta. The pulmonary vasculature is noncongested. Chronic interstitial thickening and subpleural reticulation is similar to previous. Scarring/atelectasis is noted at the lung bases. No airspace consolidation or large pleural effusion is identified. No pneumothorax is seen. The skeletal structures are osteopenic. There are chronic/healed right-sided rib fractures. IMPRESSION: Cardiomegaly and chronic interstitial change as above with no active disease in the chest. ACT 112: Negative or not required by law. Electronically signed by: Aime Garzon M.D. 03/12/2024 2:32 PM Discharge Plan Visit Data Chief Complaint: Stroke Alert Stated Complaint: STROKE ALERT ED Provider: Glenn Winslow Discharge Problem: Left-sided weakness, Cough Patient Disposition: Admitted As Inpatient Discharge Instructions Interventions: ED Discharge Assessment Last Done: 03/12/24 17:50 Discharge Problem: Cough Qualifiers: Cough type: unspecified Qualified Code(s): R05.9 - Cough, unspecified
--- NOTE | 2024-03-12 13:54 | CT Scan Report ---
CT head/brain wo con CLINICAL HISTORY: neuro deficit, acute stroke suspected Technique: Contiguous axial CT images of the head were acquired from the base of the skull to the [place] without intravenous contrast administration. Images were viewed in brain, subdural and bone [facility] . Automated dose lowering techniques and/or adjustment according to patient size were utilized for this exam. Comparison: Comparison is made to MRI brain 10/11/2023 Findings: Areas of decreased attenuation are present in the periventricular and subcortical white matter bilate rally consistent with small vessel ischemic disease. Generalized cerebral atrophy with commensurate e nlargement of the ventricles, sulci, and cisterns is also present. There is no acute intracranial hem orrhage or evidence of acute territorial infarction. No shift of the midline structures, mass effect, or extra-axial abnormalities are shown. Atherosclerotic calcifications are present in the intracran ial segments of the internal carotid arteries. Focal encephalomalacia in the right periventricular w arabella matter is unchanged compatible with chronic infarct. Imaged portions of the paranasal sinuses and mastoid air cells are clear. The orbits appear normal. There are no acute fractures of the calvaria or scalp swelling. Impression: No acute intracranial hemorrhage, no evidence of acute territorial infarction or other acute intracra nial disease process. ACT 112: Negative or not required by law. Electronically signed by: Valentin Monsivais M.D. 03/12/2024 1:53 PM
[2024-03-12 14:16] LABS: Basophils # (auto) 0.04 K/uL (0.00-0.20); Basophils % (auto) 0.3 %; Eosinophils # (auto) 0.08 K/uL (0.00-0.50); Eosinophils % (auto) 0.6 %; Hematocrit (blood only) 40.1 % (42.0-52.0); Hemoglobin 13.5 g/dl (14.0-18.0); Immature Granulocytes % (auto) 0.8 %; Lymphocytes # (auto) 1.63 K/uL (1.20-3.40); Lymphocytes % (auto) 12.5 %; Mean Corpuscular Hemoglobin 30.4 pg (25.0-34.0); Mean Corpuscular Hgb Conc 33.7 g/dL (32.0-36.0); Mean Corpuscular Volume 90.3 fL (80.0-100.0); Mean Platelet Volume 10.4 fL (9.4-12.4); Monocytes # (auto) 0.92 K/uL (0.11-0.59); Monocytes % (auto) 7.1 %; Neutrophils # (auto) 10.26 K/uL (1.40-6.50); Neutrophils % (auto) 78.7 %; Platelet Count 191 K/uL (130-400); RDW Coefficient of Variation 13.3 % (11.5-14.5); RDW Standard Deviation 43.8 fL (36.4-46.3); Red Blood Count 4.44 M/uL (4.70-6.10); White Blood Count 13.03 K/ul (4.8-10.8)
--- NOTE | 2024-03-12 14:23 | CT Scan Report ---
CT ANGIOGRAM OF THE BRAIN CLINICAL HISTORY: Neurological deficit. Stroke like symptoms. COMPARISON STUDY: Unenhanced CT of the brain performed concurrently on 03/12/2024. CT angiogram of th e brain dated 10/10/2023. TECHNIQUE: Following the IV administration of 112 cc of Optiray 320, CT angiogram of the brain was pe rformed from the skull base to the vertex. Images are reviewed in the axial, sagittal, and coronal pl anes. 3-D MIPS images are created and assessed. IV contrast was administered without complication. A dose lowering technique was utilized adhering to the principles of ALARA. FINDINGS: Brain parenchyma: There is age-related involutional change noting moderate subcortical and periventri cular microangiopathic disease. There is no evidence of hemorrhage, mass effect, or evidence of acute territorial ischemia noting angiographic phase technique. A chronic lacunar infarct is noted in the right basal ganglia. There is no evidence of enhancing mass lesion on the angiogram phase images. No extra-axial fluid collection is seen. Hameed-white matter differentiation is preserved. Ventricles, sulci, and cisterns: Prominent secondary to involutional change. Intracranial vasculature: There is atherosclerotic calcification of the cavernous carotid arteries. T he internal carotid arteries are patent at the skull base, as are the anterior and middle cerebral ar teries bilaterally. The vertebrobasilar system and posterior cerebral arteries are patent. There is m ild right-sided dominance. Atherosclerotic plaque and irregularity seen involving the right vertebral artery at the skull base. This causes moderate focal stenosis as seen on axial image #49. There is m ild to moderate focal stenosis of the distal left vertebral artery seen below the basilar on image #6 2. There is a right posterior communicating artery. No aneurysm or focal vessel cut off is seen thro ughout the intracranial circulation. Dural sinuses: Clear as visualized. Orbits: The bony orbits are intact. The orbital contents are normal as visualized. Sinuses and mastoids: The visualized paranasal sinuses are clear. The mastoid air cells are well pneu matized. Soft tissues: Calcified cellulitis are noted in the right parotid gland. Calvarium: Unremarkable. IMPRESSION: 1. There is no evidence of hemorrhage, mass effect, or evidence of acute territorial ischemia noting angiographic phase technique. 2. There are foci of stenosis seen involving both vertebral arteries at the skull base. 3. The remaining intracranial vessels are patent. ACT 112: Negative or not required by law. Electronically signed by: Aime Garzon M.D. 03/12/2024 2:22 PM
[2024-03-12 14:31] LABS: Albumin Globulin Ratio 1.5 (0.9-2); Albumin Level 4.2 gm/dl (3.4-5.0); BUN Creatinine Ratio 14.6 (10-20); Bilirubin,Total 0.8 mg/dl (0.2-1.0); Calcium 9.2 mg/dl (8.6-10.3); Creatinine Clr Calc Pharmacy 66.5 ml/min; Est GFR (African American) 86.8 ml/min; Est GFR (Non-African American) 74.9 ml/min; Globulin 2.8 gm/dl (2.5-4.0); Magnesium 1.8 mg/dl (1.7-2.4); Potassium 4.3 mmol/L (3.5-5.1)
--- NOTE | 2024-03-12 14:33 | XRay Report ---
SINGLE VIEW CHEST CLINICAL HISTORY: Cough and fever FINDINGS: An AP, portable, upright chest radiograph is compared to study dated 12/22/2023 and correlat ed with chest CT dated 06/26/2023. The heart is enlarged noting atherosclerotic calcification of the t horacic aorta. The pulmonary vasculature is noncongested. Chronic interstitial thickening and subpleu ral reticulation is similar to previous. Scarring/atelectasis is noted at the lung bases. No airspace consolidation or large pleural effusion is identified. No pneumothorax is seen. The skeletal structu res are osteopenic. There are chronic/healed right-sided rib fractures. IMPRESSION: Cardiomegaly and chronic interstitial change as above with no active disease in the chest . ACT 112: Negative or not required by law. Electronically signed by: Aime Garzon M.D. 03/12/2024 2:32 PM
[2024-03-12 14:35] LABS: Troponin I High Sensitivity 6.9 pg/ml (0-20)
--- NOTE | 2024-03-12 14:35 | CT Scan Report ---
CT ANGIOGRAM OF THE NECK CLINICAL HISTORY: neuro deficit. COMPARISON STUDY: \CT angiogram of the head and neck dated 10/10/2023. TECHNIQUE: Following the IV administration of 116 of Optiray 320, CT angiogram of the neck was perfor med from the aortic arch to the skull base. Images are reviewed in the axial, sagittal, and coronal p lanes. 3-D MIPS images are created and assessed. IV contrast was administered without complication. A ll measurements were calculated based on NASCET criteria. A dose lowering technique was utilized adh ering to the principles of ALARA. CT DOSE: 1292.35 mGy.cm FINDINGS: Thoracic aorta: There is atherosclerotic calcification of the thoracic aorta. Visualized portions of the thoracic aorta are normal in caliber. The aortic arch demonstrates 4-vessel variant anatomy. The left vertebral artery arises directly from the thoracic aorta. Right carotid arterial system: The right common carotid artery is widely patent, as are the right int ernal and external carotid arteries. Mild calcified plaque is noted in the carotid bulb. Left carotid arterial system: The left common carotid artery is widely patent, as are the left manager international al and external carotid arteries. Vertebral arteries: Moderate to severe stenosis within the distal right intracranial vertebral artery which is similar to the prior study. The bilateral cervical vertebral arteries are patent. Subclavian arteries: Widely patent bilaterally. Jugular veins: Patent bilaterally. Lung apices: Stable 6mm left apical nodule. Soft tissues: The visualized pharyngeal soft tissues are normal in appearance noting angiographic pha se technique. The oropharyngeal airway appears widely patent. Calcified sialoliths are noted in the p arotid glands. The salivary glands are otherwise normal in appearance. The thyroid gland is within no rmal limits. No cervical lymphadenopathy is seen. Skeletal structures: The skeletal structures are osteopenic. The cervical spine is maintained noting multilevel spondylosis. IMPRESSION: 1. Moderate to severe stenosis within the distal right intracranial vertebral artery which is similar to the prior study. 2. No stenosis or occlusion within the bilateral carotid arteries. ACT 112: Negative or not required by law. Electronically signed by: Ga Wu M.D. 03/12/2024 2:33 PM
[2024-03-12 14:36] LABS: Partial Thromboplastin Time 27 Seconds (21-31); Prothrombin Time 11.1 Seconds (9.0-12.0)
--- NOTE | 2024-03-12 14:55 | History & Physical Report ---
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 -Patient was initially discharged on aspirin and clopidogrel. Switched to clopidogrel monotherapy back in October 2023. -Patient presented to the hospital with left-sided weakness, fever, chills, cough, and congestion. -left side weakness noted on exam though weakness is hard to assess d/t known right sided severe flaccid hemiplegia. -Head CT, Head and negative CTA without any acute changes, will order MRI for complete stroke rule out. -No more than likely muscle weakness is due to underlying rhinovirus causing global weakness and patient relying on the left side due to right-sided severe flaccid hemiplegia. No discussion should be had about restarting aspirin if MRI is positive for stroke. -Will keep stroke precautions on at this time until MRI results are back. N.p.o. at this time until speech evaluation. -PT OT ordered. -Will defer neurology consult at this time but may consider in the future. 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 -Continue supportive care, given 1 L NSS in the ED. Will hold off on further fluids at this time until stroke ruled out. (4) WILFRIDO (obstructive sleep apnea): Plan: - wears 2 L NC at night. (5) Type 2 diabetes mellitus: Plan: - Patient's home regimen held on admission - Continue BSG checks, sliding-scale insulin, hypoglycemic protocol (6) Benign essential hypertension: Plan: -Holding home blood pressure medications, will permissive hypertension until stroke r/o on MRI. Plan Fluids: Received 1 L in ED Nutrition: N.p.o. Code status: DNR/DNI PT/OT: Consulted Dispo: Telemetry History of Present Illness Chief Complaint: Left-sided weakness Primary Care Provider: Kenyon Nation DO Patient is a 78-year-old male with past medical history of type 2 diabetes, CVA, bladder cancer presenting to the hospital with left-sided weakness as well as flulike symptoms. 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 Patient was initially discharged on both aspirin and though was changed to just clopidogrel at his October appointment with neurology. 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 Patient states that Monday he started to have a nonproductive cough, congestion and fever. Then on Monday started to have left-sided weakness. States that due to his right-sided weakness that he normally uses his left side of his body. States that he struggled to get to and from the bathroom and needed assistance due to this left-sided weakness. States that he has been feeling very fatigued over these last 3 days and not eating or drinking much. Denies any shortness of breath or orthopnea. Does state that he requires 2 L of nasal cannula at night and this requirement has not changed. Denies any hemoptysis, abdominal pain, nausea, or vomiting. States that the weakness has not improved much since yesterday. Denies any numbness or tingling. Does state that he does have some numbness in the right lower extremity which has been present since his stroke back 5 months ago. In the ED: CBC with a leukocytosis of 13 with predominantly neutrophils, PT/INR normal, CMP benign, Pro-Tom negative, head CT negative, head and neck CTA showed no change. Chest x-ray showed cardiomegaly without any active disease in chest. Allergies Allergy/AdvReac Type Severity Reaction Status Date / Time No Known Drug Allergies Allergy Mild Verified 03/12/24 11:55 Home Medications Medication Instructions Recorded Confirmed Type Oxygen Home 04/17/23 03/12/24 History Oxygen Home #1 ea 07/05/23 03/12/24 Rx amlodipine 5 mg tablet 5 mg PO DAILY #100 tabs 11/08/23 03/12/24 Rx atorvastatin 40 mg tablet 40 mg PO QAM #100 tabs 11/08/23 03/12/24 Rx clopidogrel 75 mg tablet 75 mg PO QAM #100 tabs 11/08/23 03/12/24 Rx losartan 100 mg tablet 100 mg PO UD 12/22/23 03/12/24 History metoprolol tartrate 50 mg tablet 25 mg PO DAILY 01/30/24 03/12/24 History (Lopressor) metformin 500 mg tablet 500 mg PO BID #100 tabs 02/02/24 03/12/24 Rx losartan 50 mg tablet 50 mg PO BID 03/12/24 03/12/24 History Past Med/Surg History Problem List (Updated 03/12/24 @ 15:44 by Aime Cowan DO) Rhinovirus Left-sided weakness Hx of bladder cancer WILFRIDO (obstructive sleep apnea) Type 2 diabetes mellitus 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 Acute right-sided weakness (Acute) Acute CVA (cerebrovascular accident) Benign essential hypertension Cardiomegaly Hx of bladder cancer Neuropathy of right hand Shingles Lung nodule Facial droop (Acute) Orbital cellulitis on left (Acute) Cough Rib pain on left side Loss of consciousness Sleep disturbance Tachycardia Chest pain Shortness of breath on exertion Carpal tunnel syndrome, bilateral Arthritis of left hip Hypersomnolence Interstitial lung disease Idiopathic interstitial pneumonia per pulm records Reason for upcoming procedure Traction bronchiectasis Likely secondary to ILD Dyspnea on exertion Six minute walk test done- patient does not qualify for O2- encouraged weight loss per pulm records Mediastinal lymphadenopathy Multiple pulmonary nodules determined by computed tomography of lung Medical History Cryptococcal pneumonitis Encounter for pre-operative examination TIA (transient ischemic attack) Infarction of left basal ganglia History of Incidentally found on imaging in 2020("Old right basal ganglia infract per 2020 brain MRI) - PCP aware- started on ASA and statin Chronic sinusitis Hearing deficit Carpal tunnel syndrome, bilateral Surgical History History of colonoscopy History of tooth extraction History of cystoscopy "cancer spot removed" History of nasal surgery History of total left hip replacement Family History Other No family history of adverse response to anesthesia Denies family history of Ovarian cancer Prostate cancer Myocardial infarction Breast cancer Colorectal cancer Social History Smoking Status: Never smoker Tobacco Type: Cigarettes Age Started Using Tobacco: 19; Age Quit Using Tobacco: 20; packs per day: 0; Second Hand Exposure: No; Do You Dip or Chew Tobacco: No; Hx Alcohol Use: No Hx Substance Use: No Preferred Language: Kosovan Communication Ability: Effective Visual Impairment: No Limitations Hearing Ability: Normal Hazard Mitigation Officer Required: No Beliefs That Will Affect Care: None marital status: Current Living Situation: Family Current Living Situation Comment: Lives with spouse current occupational status: retired How many Children do You have: 8 Feels Safe at Home: Yes Childhood Exposure to Second-Hand Smoke: No Diet: regular caffeine: No Dental Care, Regularly: No Physical Activity Frequency: Does not Exercise Seatbelt Use: always Sunscreen Use: No Assistive Devices: Cane, Denture - Upper, Denture - Lower, Glasses, Scooter/Electric Scooter and Walker Review of Systems Review of Systems: All systems reviewed & are unremarkable except as noted in Subjective Physical Exam Constitutional: WD/WN, vitals as above Eyes: PERRL, conjunctivae normal, anicteric sclerae Neck: trachea midline, no thyromegaly Respiratory: normal respiratory effort, lungs clear to auscultation Cardiovascular: RRR, no murmur, no edema Gastrointestinal (Abdomen): normal bowel sounds, soft, nontender, no hepatosplenomegaly Musculoskeletal: Extremities: + abnormal strength (Right-sided UE and LE strength 2/5, Left sided UE and LE strength 4/5 ) Skin: no rashes, warm and dry Neurologic: normal touch/pain/proprioception and CN's II-XI intact bilaterally Speech / Cognition: + abnormal speech Motor/Sensory: no pronator drift Coordination: normal [id number] test Results & Data Results & Data Vital Signs (Past 12 Hours) Vital Signs Temp Pulse Pulse Resp BP BP Pulse Ox 03/12/24 14:01 92 H 25 H 136/58 L 95 03/12/24 13:29 108 H 03/12/24 13:26 2 L 03/12/24 13:16 37.4 C 107 H 21 156/85 H 92 O2 Del Method O2 Flow Rate 03/12/24 14:01 Room Air 03/12/24 13:29 03/12/24 13:26 Room Air 0 03/12/24 13:16 Room Air Supervising Physician Co-Signing Physician Notes Patient seen and examined, chart reviewed, case discussed with Aime Cowan DO and I agree with the assessment and plan as above except as otherwise noted Labs and images reviewed 78-year-old male with past medical history of CVA with residual right-sided weakness who presents with flulike symptoms and some global weakness and inability to compensate with his left side. He has had a nonproductive cough, congestion, and fever. He is positive for entero-/rhinovirus. Is chronically on 2 L of nasal cannula. X-ray does not show evidence of superimposed pneu monia, does have a leukocytosis. Will provide supportive care for viral pneumonia. Suspect that he is globally weak from viral infection with difficulty compensating due to prior stroke however left-sided exam is with increased weakness and cannot get a good comparison due to his right flaccid paralysis. Low suspicion for CVA, but given initial left upper and left lower extremity weakness will obtain MRI for definitive rule out. Agree with assessment and management as above. Patient and his with no further questions at time bedside assessment. Resident Activity Tracking Resident Involvement: Resident Care Provided Care Provided: Adult Hospital Medicine
[2024-03-12 15:14] LABS: Adenovirus PCR Not Detected (NotDetected); Bordetella parapertussis PCR Not Detected (NotDetected); Bordetella pertussis PCR Not Detected (NotDetected); Chlamydia pneumoniae PCR Not Detected (NotDetected); Coronavirus 229E PCR Not Detected (NotDetected); Coronavirus CoV-2 (COVID19)PCR Not Detected (NotDetected); Coronavirus HKU1 PCR Not Detected (NotDetected); Coronavirus NL63 PCR Not Detected (NotDetected); Coronavirus OC43PCR Not Detected (NotDetected); Human Metapneumovirus PCR Not Detected (NotDetected); Influenza A PCR Not Detected (NotDetected); Influenza B PCR Not Detected (NotDetected); Mycoplasma pneumoniae PCR Not Detected (NotDetected); Parainfluenza Virus 1 PCR Not Detected (NotDetected); Parainfluenza Virus 2 PCR Not Detected (NotDetected); Parainfluenza Virus 3 PCR Not Detected (NotDetected); Parainfluenza Virus 4 PCR Not Detected (NotDetected); Respiratory Syncytial VirusPCR Not Detected (NotDetected); Rhinovirus/Enterovirus PCR DETECTED (NotDetected)
[2024-03-12] MEDS: SODIUM CHLORIDE 0.9% 500 ML IV ONE (15:26)
[2024-03-12] MEDS: ACETAMINOPHEN 1,000 MG/100 ML VIAL IV STA (15:26)
--- NOTE | 2024-03-12 15:37 | Billing Data ---
Date of Service March 12, 2024 Coding Level of Care Code 41106 INT INP/OBS CARE
[2024-03-12] MEDS ORDERED: DEXTROSE 50% 50 ML SYRINGE IV PRN (17:22)
[2024-03-12] MEDS ORDERED: GLUCOSE 10 TAB/TUBE PO PRN (17:22)
[2024-03-12] MEDS ORDERED: PHARMACIST DISCHARGE MED REC CONSULT PRN (17:22)
[2024-03-12] MEDS ORDERED: ONDANSETRON INJ 2 MG/ML 2 ML VIAL IV PRN (17:22)
[2024-03-12] MEDS ORDERED: CARBOHYDRATES FOR HYPOGLYCEMIA PO PRN (17:22)
[2024-03-12] MEDS ORDERED: GLUCAGON FOR INJ 1 MG VIAL SQ PRN (17:22)
[2024-03-12] MEDS ORDERED: GLUCOSE 40% GEL 15 GM TUBE PO PRN (17:22)
[2024-03-12 17:33] LABS: iSTAT Hemoglobin 13.3 g/dl (14.0-18.0); iSTAT Ionized Calcium 1.11 mmol/l (1.12-1.32); iSTAT Potassium 4.3 mmol/L (3.3-5.0)
--- NOTE | 2024-03-12 18:03 | Billing Data ---
Date of Service March 12, 2024 Coding Level of Care Code 18545 INT INP/OBS CARE
[2024-03-12] MEDS: GADOBUTROL 65ML VIAL IV ONE (18:32)
[2024-03-12] MEDS: INSULIN ASPART PER UNIT CHARGE SC SCH (19:06)
--- NOTE | 2024-03-12 19:58 | Magnetic Resonance Report ---
MR brain wo/w con CLINICAL HISTORY: L sided weakness TECHNIQUE: Multiplanar and multisequence MR images of the brain were obtained prior to and following administration of gadolinium contrast. Comparison: Comparison is made to MRI brain 10/11/2023 and CTA head and neck 03/12/2024 FINDINGS: No abnormal restricted diffusion is identified. Foci of T2 and FLAIR hyperintensity are noted in the paraventricular areas consistent with chronic small vessel ischemic disease. Ex vacuo ventriculomegal y and sulcal enlargement is noted compatible with diffuse volume loss. No mass or abnormal enhancemen t is seen. There is no mass effect or midline shift. There is no evidence of acute intraparenchymal h emorrhage. No extra axial fluid collections are seen. The corpus callosum, pituitary gland, and cereb ellar tonsils appear grossly unremarkable. Flow voids of the major intracranial arterial vessels are identified. The imaged portions of the para nasal sinuses, mastoid air cells, and orbits are unremarkable. IMPRESSION: No acute abnormality and in particular no evidence of acute infarct. ACT 112: Negative or not required by law. Electronically signed by: Valentin Monsivais M.D. 03/12/2024 7:55 PM
[2024-03-12 22:51] VITALS: RESP 18
[2024-03-13 06:55] LABS: Basophils # (auto) 0.03 K/uL (0.00-0.20); Basophils % (auto) 0.4 %; Eosinophils # (auto) 0.24 K/uL (0.00-0.50); Eosinophils % (auto) 3.2 %; Hematocrit (blood only) 35.8 % (42.0-52.0); Hemoglobin 12.1 g/dl (14.0-18.0); Immature Granulocytes # (auto) 0.03 K/uL (0.01-0.20); Immature Granulocytes % (auto) 0.4 %; Lymphocytes % (auto) 18.8 %; Mean Corpuscular Hgb Conc 33.8 g/dL (32.0-36.0); Mean Corpuscular Volume 88.6 fL (80.0-100.0); Mean Platelet Volume 10.1 fL (9.4-12.4); Monocytes % (auto) 9.4 %; Neutrophils # (auto) 5.04 K/uL (1.40-6.50); Neutrophils % (auto) 67.8 %; Platelet Count 159 K/uL (130-400); RDW Coefficient of Variation 13.2 % (11.5-14.5); RDW Standard Deviation 43.4 fL (36.4-46.3); Red Blood Count 4.04 M/uL (4.70-6.10); White Blood Count 7.44 K/ul (4.8-10.8)
--- NOTE | 2024-03-13 07:11 | Hospitalist Progress Note ---
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 - Patient was initially discharged on aspirin and clopidogrel. Switched to clopidogrel monotherapy back in October 2023. - Patient presented to the hospital with left-sided weakness, fever, chills, c ough, and congestion. - left side weakness noted on exam though weakness is hard to assess d/t known right sided severe flaccid hemiplegia. - Head CT, CTA-Head and Neck, all without any acute changes, - MRI ordered (wo/w contrast): no acute abnormality, no evidence of acute infarct -more than likely muscle weakness is due to underlying rhinovirus causing global weakness and patient relying on the left side due to right-sided severe flaccid hemiplegia. No discussion should be had about restarting aspirin if MRI is positive for stroke. - NPO at this time until speech evaluation. -PT/OT ordered. -Will defer neurology consult at this time but may consider in the future. 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 -Continue supportive care, given 1 L NSS in the ED. Will hold off on further fluids at this time until stroke ruled out. 4) WILFRIDO (obstructive sleep apnea): - uses 2 L NC at night. 5) Type 2 diabetes mellitus - Patient's home regimen held on admission - Continue BSG checks, sliding-scale insulin, hypoglycemic protocol 6) Benign essential hypertension -Holding home blood pressure medications, will permissive hypertension until stroke r/o on MRI. Fluids: Received 1 L in ED FENGI: 1 L NSS in ED, NPO Code status: DNR/DNI PT/OT: Consulted Dispo: Telemetry Admission and Anticipated Discharge Date Admission Date: March 12, 2024 Review of Systems Constitutional: + fatigue and + weakness; no fever and n o chills Ear, Nose, Mouth, Throat: + nasal congestion, + nasal discharge, + post nasal drip and + sore throat Respiratory: + cough and + chest congestion; no hemop tysis and no wheezing Cardiovascular: no chest pain Physical Exam Constitutional: WD/WN, vitals as above Respiratory: normal respiratory effort and + cough; no audible wheezes Auscultation: + crackles (dry crackles in lungs bilaterally w/ posterior auscultation) Cardiovascular: Rate/Rhythm: regular rate and regular rhythm Heart Sounds: + murmur Extremities: normal capillary refill; no calf tenderness and no pedal edema Gastrointestinal (Abdomen): normal bowel sounds, soft, nontender, no hepatosplenomegaly Neurologic: Motor/Sensory: + abnormal movement (right sided weakness, 3/5 UE and LE; left side knee flexion, 4/5; rest nml); no pronator drift Cranial Nerves: PERRL, normal accommodation, EOM intact bilaterally, normal facial strength, tongue midline, normal hearing, able to elevate shoulders bilaterally and symmetric palate elevation Psychiatric: A+Ox3, euthymic affect Results & Data Results & Data Vital Signs (Past 12 Hours) Vital Signs Temp Pulse Pulse Resp BP Pulse Ox O2 Del Method 03/13/24 02:19 36.6 C 67 18 115/74 97 Nasal Cannula 03/12/24 23:00 67 03/12/24 22:50 36.5 C 69 18 137/65 95 Nasal Cannula 03/12/24 20:00 Room Air O2 Flow Rate 03/13/24 02:19 2 03/12/24 23:00 03/12/24 22:50 2.0 03/12/24 20:00
[2024-03-13 07:13] LABS: Estimated Average Glucose 120 mg/dl; Hemoglobin A1C 5.8 % (4.5-5.6)
[2024-03-13 07:29] LABS: Albumin Globulin Ratio 1.4 (0.9-2); Albumin Level 3.7 gm/dl (3.4-5.0); BUN Creatinine Ratio 19.5 (10-20); Bilirubin,Total 0.8 mg/dl (0.2-1.0); Calcium 8.3 mg/dl (8.6-10.3); Chol HDL Ratio 4.2 (0-5); Creatinine Clr Calc Pharmacy 82.9 ml/min; Est GFR (Non-African American) 86.3 ml/min; Globulin 2.7 gm/dl (2.5-4.0); Potassium 3.9 mmol/L (3.5-5.1); Total Protein 6.4 gm/dl (6.0-8.3)
[2024-03-13 07:33] VITALS: TEMP 98.1
--- NOTE | 2024-03-13 08:54 | Electrocardiogram Report ---
Test Reason : Blood Pressure : */* mmHG Vent. Rate : 98 BPM Atrial Rate : 98 BPM P-R Int : 236 ms QRS Dur : 68 ms QT Int : 354 ms P-R-T Axes : 21 -2 47 degrees QTcB Int : 451 ms Sinus rhythm with 1st degree A-V block with Premature atrial complexes in a pattern of bigeminy Abnormal ECG When compared with ECG of 22-Dec-2023 13:04, Premature atrial complexes are now Present Criteria for Septal infarct no longer present Confirmed by Walter Rosenthal ([id number]) on 03/13/2024 8:53:56 AM Referred By: REFERRED SELF Confirmed By: Walter Rosenthal
[2024-03-13 11:30] VITALS: PULSE 76; O2SAT 94
[2024-03-13] MEDS ORDERED: STROKE PATIENT DISCHARGE STA (12:34)
[2024-03-13 12:53] VITALS: BP 136/58
--- NOTE | 2024-03-13 18:28 | Discharge Summary ---
Date of Service March 13, 2024 Admission HPI Per Admitting Provider Patient is a 78-year-old male with past medical history of type 2 diabetes, CVA, bladder cancer presenting to the hospital with left-sided weakness as well as flulike symptoms. 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 Patient was initially discharged on both aspirin and though was changed to just clopidogrel at his October appointment with neurology. 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 Patient states that Monday he started to have a nonproductive cough, congestion and fever. Then on Monday started to have left-sided weakness. States that due to his right-sided weakness that he normally uses his left side of his body. States that he struggled to get to and from the bathroom and needed assistance due to this left-sided weakness. States that he has been feeling very fatigued over these last 3 days and not eating or drinking much. Denies any shortness of breath or orthopnea. Does state that he requires 2 L of nasal cannula at night and this requirement has not changed. Denies any hemoptysis, abdominal pain, nausea, or vomiting. States that the weakness has not improved much since yesterday. Denies any numbness or tingling. Does state that he does have some numbness in the right lower extremity which has been present since his stroke back 5 months ago. In the ED: CBC with a leukocytosis of 13 with predominantly neutrophils, PT/INR normal, CMP benign, Pro-Tom negative, head CT negative, head and neck CTA showed no change. Chest x-ray showed cardiomegaly without any active disease in chest. Admission Exam Per Admitting Provider Physical Exam Constitutional: WD/WN, vitals as above Eyes: PERRL, conjunctivae normal, anicteric sclerae Neck: trachea midline, no thyromegaly Respiratory: normal respiratory effort, lungs clear to auscultation Cardiovascular: RRR, no murmur, no edema Gastrointestinal (Abdomen): normal bowel sounds, soft, nontender, no hepatosplenomegaly Musculoskeletal: Extremities: + abnormal strength (Right-sided UE and LE strength 2/5, Left sided UE and LE strength 4/5 ) Skin: no rashes, warm and dry Neurologic: normal touch/pain/proprioception and CN's II-XI intact bilaterally Speech / Cognition: + abnormal speech Motor/Sensory: no pronator drift Coordination: normal [id number] test Principal Diagnosis rhinoentero virus positive Discharge Exam Constitutional WD/WN, vitals as above Respiratory normal respiratory effort and + cough; no audible wheezes Auscultation: + crackles (dry crackles in lungs bilaterally w/ posterior auscultation) Cardiovascular Rate/Rhythm: regular rate and regular rhythm Heart Sounds: + murmur Extremities: normal capillary refill; no calf tenderness and no pedal edema Gastrointestinal (Abdomen) normal bowel sounds, soft, nontender, no hepatosplenomegaly Neurologic Motor/Sensory: + abnormal movement (right sided weakness, 3/5 UE and LE; left side knee flexion, 4/5; rest nml); no pronator drift Cranial Nerves: PERRL, normal accommodation, EOM intact bilaterally, normal facial strength, tongue midline, normal hearing, able to elevate shoulders bilaterally and symmetric palate elevation Psychiatric A+Ox3, euthymic affect Discharge Data Allergies Allergy/AdvReac Type Severity Reaction Status Date / Time No Known Drug Allergies Allergy Mild Verified 03/12/24 11:55 Ordered Studies 03/12/24 13:18 CT angio head w con Stat CT angio neck with con Stat CT head/brain wo con Stat 03/12/24 17:22 MR brain wo/w con Routine Hospital Course (1) Left-sided weakness: (2) 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 - Has baseline severe flaccid right hemiplegia from a ischemic stroke in the left anterior medulla back in September 2023. - MRI scan with no acute changes. - Worsening weakness likely from acute infection from Rhino virus. - PT/OT evaluation done- Ok to be discharged home. - continue home meds - statin, plavix, and antihypertensives/DM meds. 3) Rhinovirus infection: -Positive for rhinovirus in the ED. - Continue supportive care, OTC meds upon d/c (Mucinex, vit D, vit C, zinc) 4) WILFRIDO (obstructive sleep apnea): - uses 2 L NC at night. 5) Type 2 diabetes mellitus - continue home meds on d/c, 6) Benign essential hypertension - continue home meds on d/c, Total Time Total Time Spent Total Time Spent (In Minutes): see attending attestation Discharge Plan Discharge Items Patient Disposition: Home - Self-Care Reason For Visit: L SIDE WEAKNESS Discharge Diagnosis: positive rhino-enterovirus infection Activity: Resume your previous activity Non-emergency contact: Primary Care Provider Call non-emergency contact if: you have any medication questions and your pain is worsening Follow-up/Referrals: Kenyon Nation DO [Primary Care Provider] - 03/15/24 12:00 pm Diet: Carb Consistent or DM2 Addtl Attending Provider Instructions: You were admitted to the hospital for general weakness, cough, fatigue. You were treated with IV fluids, Tylenol. A discharge summary will be sent to your primary care physician to ensure continuity of care. Please bring this discharge summary with you to your next office appointment so that your provider can review it at that time. Follow-up appointments: Make a follow-up appointment with your PCP within the next week. It is very important that you follow up with them shortly after discharge from the hospital. Keep all your follow-up appointments as already scheduled. If you cannot make an appointment, notify your provider. Medications: Your medication list has been reviewed and reconciled upon discharge to ensure accuracy and continuity of care. An updated list of all your medications is included with your hospital discharge paperwork. Please review this list closely, and make note of any changes. Take your medications as instructed; do not skip a dose of your medicines. Make sure all of your doctors know every medicine you are taking (including gfmc-bqa-[id number] medicines, vitamins, and supplements). Call your primary care provider before taking any new medicines (including youu-uex-dhnucwi medicines, vitamins, and supplements), because some of these may interact with your current medications, or may make your symptoms worse. Tell your primary care provider if you cannot afford your medications. CONTACT YOUR PRIMARY CARE PROVIDER if you experience any of the following: sudden focal weakness, facial droop, speech difficulty Difficulty following your treatment plan, or difficulty taking medications CALL 911 OR GO TO THE EMERGENCY DEPARTMENT if you experience any of the following: Sudden, severe abdominal pain or nausea/vomiting Severe chest pain, or chest pain that radiates (moves) to your jaw or arm Sudden, severe shortness of breath or difficulty breathing Thank you for allowing us to participate in your care Pending Studies at Discharge: No Stand-Alone Forms: My [facility] Nephosity, Smoking Cessation Medications and DC Order Prescriptions: Continued (DME) Oxygen Home Liters Per Minute See Rx Instructions .Route Qty: 1 0RF Rx Instructions: Medical Oxygen at 2lpm via NC all the time LON99 metformin 500 mg tablet 500 mg PO BID Qty: 100 2RF metoprolol tartrate [Lopressor] 50 mg tablet 25 mg PO DAILY (DME) Oxygen Home Liters Per Minute See Rx Instructions .ROUTE .MEDSUPPLY Rx Instructions: Home oxygen concentrator with portability. O2 at 2 L/min via nasal cannula at all times. DAYAN 89 yrs PT reports 04/17/2023 that it is at night only. amlodipine 5 mg tablet 5 mg PO DAILY Qty: 100 1RF atorvastatin 40 mg tablet 40 mg PO QAM Qty: 100 1RF clopidogrel 75 mg tablet 75 mg PO QAM Qty: 100 3RF losartan 100 mg tablet 100 mg PO UD Rx Instructions: last filled 10/30/23, most recent fill is 12/26/23 for 50 mg po bid losartan 50 mg tablet 50 mg PO BID Rx Instructions: filled 12/26/23 Discharge Orders: Discharge Order (Routine); Ordered 03/13/24 Ordered By: Trenton Arora/Other Patient Handouts: Hypoglycemia (Low Blood Sugar) Admission Data Admit Date/Time: 03/12/24 15:36 Attending Provider: Lisa Ball Admit Provider: Aime Cowan Primary Care Provider: Kenyon Nation Other Providers: Bennie Crane Other Interventions: Discharge Summary Assessment (RN) Last Done: 03/13/24 12:49 Supervising Physician Co-Signing Physician Notes Attending Physician Supervision Note: I independently interviewed and examined the patient and verified the patricio hist ory and physical, reviewed labs and image studies and agree with findings and care plan noted above.
== END 2024-03-13 14:13 | disposition home or self-care (01) ==
LOC: 2S 13:22 → ED 13:22 → SUATTDRO 15:36 → 2S 17:50